=== PATIENT | male | born 1965 | race Caucasian/White ===

== ENCOUNTER 2018-01-25 08:48 | Emergency (ER) | payer MEDICARE ==
[~2018-01-25] VITALS: Ht 172.7 cm; Wt 79.4 kg
[2018-01-25] MEDS ORDERED: PROTONIX20 MG PO (09:17)
[2018-01-25] MEDS ORDERED: DICYCLOMINE HCL10 MG PO (09:19)
[2018-01-25] MEDS ORDERED: ZANAFLEX2 M1 PO (09:20)
[2018-01-25] MEDS ORDERED: DOCUSATE SODIU100 MG PO (09:20)
[2018-01-25] MEDS ORDERED: LISINOPRIL10 MG PO (09:21)
[2018-01-25] MEDS ORDERED: SERTRALINE HCL100 MG PO (09:21)
[2018-01-25] MEDS ORDERED: AMITRIPTYLINE H10 MG PO (09:22)
--- NOTE | 2018-01-25 11:42 | EKG ---
[facility] [address] [facility] [place] [address] Signed Sinus bradycardia Minimal voltage criteria for LVH, may be normal variant Borderline ECG No previous ECGs available Confirmed by GILL LUKE MD ([id number]) on 01/25/2018 11:42:14 AM Electronically Signed By: GILL LUKE MD 01/25/18 1142 PATIENT NAME: VINAY FERNANDEZ Electrocardiogram DATE OF : 63 PHYSICIAN: GILL LUKE MD REPORT #: [id number] REPORT IS CONFIDENTIAL AND NOT TO BE RELEASED WITHOUT AUTHORIZATION
[2018-01-25] MEDS ORDERED: PROMETHAZINE HC25 M1 PO (12:49)
[2018-01-25] MEDS ORDERED: ONDANSETRON ODT8 MG PO (12:49)
== END 2018-01-25 13:00 | disposition home or self-care (01) ==
LOC: ED 08:48
DX: R10.10 Upper abdominal pain, unspecified (principal); R11.2 Nausea with vomiting, unspecified; Z88.0 Allergy status to penicillin; Z88.8 Allergy status to other drugs, medicaments and biological substances; Z79.899 Other long term (current) 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
CPT/HCPCS: 80053; 81001; 83690; 85025; 93005; 93010; 96361; 96372; 96374; 96375; 99284; J1170; J1630; J2405; J2550; J7030

== ENCOUNTER 2018-06-23 16:28 | Observation (INO) | payer MEDICARE, OTHER ==
[~2018-06-23] VITALS: Ht 172.7 cm; Wt 77.6 kg
[~2018-06-23 16:28] MED LIST: AMITRIPTYLINE H10 MG PO; DICYCLOMINE HCL10 MG PO; DOCUSATE SODIU100 MG PO; LISINOPRIL10 MG PO; ONDANSETRON ODT8 MG PO; PROMETHAZINE HC25 M1 PO; PROTONIX20 MG PO; SERTRALINE HCL100 MG PO; TRAMADOL HCL50 MG PO; ZANAFLEX2 M1 PO
--- OUTSIDE RECORDS SUMMARY | 2018-06-23 16:32 | XMS ---
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 EJinny VISIT COUNT (12 MO.) [address] TOTAL 7 NOTE: Visits indicate total known visits. ED/UCC VISIT TRACKING (12 MO.) 06/23/2018 16:28 [facility] TYPE: Emergency COMPLAINT: - VOMITING 06/22/2018 16:32 [facility] TYPE: Emergency COMPLAINT: - ALTERED LOC 01/25/2018 08:50 [facility] TYPE: Emergency COMPLAINT: - ABD PAIN/NAUSEA DIAGNOSES: - Upper abdominal pain, unspecified - Other roasterman (current) 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 - Syncope and collapse - Nausea with vomiting, unspecified - Allergy status to other drugs, medicaments and biological substances status - Allergy status to penicillin 12/11/2017 11:34 [facility] TYPE: Emergency DIAGNOSES: - Vomiting - Dysphagia, unspecified - Epigastric pain - abdominal pain - Elevated white blood cell count, unspecified - Nausea 10/05/2017 14:24 [facility] TYPE: Emergency DIAGNOSES: - Chronic ethmoidal sinusitis - Headache - Fainting 08/02/2017 20:48 [facility] TYPE: Emergency DIAGNOSES: - Abdominal pain - Noninfective gastroenteritis and colitis, unspecified 06/29/2017 09:18 [facility] TYPE: Emergency DIAGNOSES: - N/V - Vomiting, unspecified - Vomiting INPATIENT VISIT TRACKING (12 MO.) No inpatient visits to display in this time frame [email or web address]
--- NOTE | 2018-06-23 20:00 | NUR ---
PT ARRIVED ON FLOOR AT 1940. PT HAD UNCONTROLLED N/V AT THAT TIME. 12.5MG PHENERGAN WAS GIVEN. PT ALSO STATED PAIN 10/10. ALL LOBES ARE CLEAR, ABD SOUNDS ARE PRESENT BUT ABD IS TENDER TO TOUCH. NO PERIPHERAL EDEMA NOTED. WILL CONTINUE TO MONITOR. V/S ARE WDL.
--- NOTE | 2018-06-23 22:00 | NUR ---
PT AT THIS TIME IS SLEEPING. PT AT 2100 WAS WOKEN UP AND DENIED PAIN AND N/V. POTASSIUM IV IS RUNNING. NO NEW CONCERNS AT THIS TIME. BLOOD CULTERS WERE SENT. WAITING ON UA FOR COLLECTION.
--- NOTE | 2018-06-24 | NUR ---
PAIN AT THIS TIME IS 9/10. 1MG OF PRN MORPHINE IS TO BE GIVEN. PT DENIES N/V. WILL CONTINUE TO MONITOR. NO NEW CONCERNS NOTED AT THIS TIME.
--- NOTE | 2018-06-24 01:58 | NUR ---
VITALS AND I&OS DONE AND CHARTED. BEDSIDE TABLE AND CALL LIGHT IN REACH. PT NEEDS NOTHING AT THIS TIME.
--- NOTE | 2018-06-24 02:00 | NUR ---
PT WAS WOKEN UP FOR ASSESSMENT. PAIN IS 7/10, PT DENIES N/V. ABD SOUNDS ARE PRESENT, ABD IS SOFT BUT TENDER TO TOUCH. ALL LOBES ARE CLEAR, NO PERIPHERAL EDEMA NOTED. HIS RIGHT ARM HAS SOME ECCHYMOSIS PRESENT, PT DOES NOT KNOW HOW HE GOT IT. AT THIS TIME I HAVE NO NEW CONCERNS FOR THIS PT. WILL CONTINUE TO MONITOR.
--- NOTE | 2018-06-24 04:05 | NUR ---
PT IS SLEEPING AT THIS TIME.
--- NOTE | 2018-06-24 05:44 | NUR ---
PT OVERALL HAD AN UNEVENTFUL NIGHT. PT STATED THAT HE FEELS MUCH STRONGER OVERALL AND HE ALSO SEEMS TO BE IN GOOD SPIRITS. LOBES ARE CLEAR, PT HAS MODEREATE TO SEVERE GENERALIZED EDEMA PRESENT THOUGH. NEW IV SITE WAS STARTED. ABD SOUNDS ARE PRESENT. PT SO FAR HAD NO BM THIS SHIFT. PT DENIES N/V. PAIN IS CONTROLLED WELL WITH AVAILABLE PRN PAIN MEDS. DRESSING CHANGE ON THE LEFT HEEL HAD TO BE DONE DUE TO LOOSE DRESSING. NO NEW CONCERNS NOTED SO FAR THIS SHIFT. WILL CONTINUE TO MONITOR.
--- NOTE | 2018-06-24 05:49 | NUR ---
PT ARRIVED ON FLOOR AT 1940. PT HR WAS IN THE LOW 100'S. 12.5MG IV PHENERGAN HAD TO BE GIVEN BECAUSE ZOFRAN WAS NOT SUFFICIENT ENOUGH TO REAT HIS N/V. SINCE THEN, V/S HAVE BEEN WDL, URINE OUTPUT IS ADEQUATE, PT HAS DENIED N/V SINCE. PAIN IS CONTROLLED WITH AVAILABLE PRN PAIN MEDICATIONS. ABD SOUNDS ARE PRESENT, ABD IS TENDER TO TOUCH BUT SOFT. NO PERIPHERAL EDEMA NOTED, ALL LOBES ARE CLEAR, PT IS AAO X3. WILL CONTINUE TO MONITOR.
[2018-06-24] MEDS ORDERED: PANTOPRAZOLE SO40 MG PO (07:22)
[2018-06-24] MEDS ORDERED: NITROGLYCERIN0.4 MG SL (07:23)
[2018-06-24] MEDS ORDERED: ATORVASTATIN CA20 MG PO (07:24)
[2018-06-24] MEDS ORDERED: XOPENEX HFA15 GM INH (07:24)
[2018-06-24] MEDS ORDERED: AMITRIPTYLINE100 MG PO (07:25)
--- NOTE | 2018-06-24 07:58 | NUR ---
RECEIVED BEDSIDE REPORT FROM NEGRA COLON. WHITE BOARD UPDATED. PATIENT AWAKENED TO SOUND. LYING IN BED COMFORTABLY. NEW IVF BAG HUNG. LR INFUSING AT 150ML/HR. PT SEEMS WITHDRAWN/DEPRESSED. LIGHTS TURNED ON PER PATIENT REQUEST. NO FURTHER NEEDS AT THIS TIME.
--- NOTE | 2018-06-24 09:18 | NUR ---
PATEINT IN BED, PATEINT STATED HE HAD TALKED TO NURSE ABOUT PAIN MANAGMENT MEDICATION, AND HE WAS FEELING A BIT OF PAIN, VITAL SIGNS DONE INTAKE AND OUTPUT RECORDED, PATIENT IS NPO
--- NOTE | 2018-06-24 10:21 | NUR ---
PT RESTING WITH EYES CLOSED. TYLENOL PROVIDED FOR HEADACHE. ADVANCED TO CLEAR LIQUIDS. WILL GIVE ORANGE JUICE PER REQUEST AND BLACK COFFEE.
--- NOTE | 2018-06-24 13:38 | NUR ---
SPOKE WITH PATIENT ABOUT NEEDING CASE MANAGEMENT POSSIBLY. SAYS HE HAS TAKEN CARE OF WHATEVER HE NEEDS ON HIS OWN. HE IS HAVING PERSONAL ISSUES WITH SPOUSE AT HOME. PROVIDED NEW CUP OF COFFEE REQUESTED. CHRISTINA COLON HANGING NEW BAG OF IVF NOW.
[2018-06-24] MEDS ORDERED: ZENPEP DR 20,01 EACH PO (14:46)
[2018-06-24] MEDS ORDERED: VASCEPA1 GM PO (14:47)
--- NOTE | 2018-06-24 14:48 | NUR ---
MED REC COMPLETE
--- NOTE | 2018-06-24 14:53 | NUR ---
PT AMBULATING HALLS INDEPENDENTLY NOW. TOLERATING WELL. UP IN RECLINER NOW AFTER WALK.
--- NOTE | 2018-06-24 15:54 | NUR ---
PT UP IN RECLINER. IVF DECREASED TO 100ML/HR. RIGHT LITTLE TOE REWRAPPED PER REQUEST. BRUISED PURPLE ON LITTLE TOE OF RIGHT FOOT.
--- NOTE | 2018-06-24 17:53 | NUR ---
INDEPENDENT IN ROOM. LOW FAT DIET. TOLERATING WELL. LR DECREASED TO 100ML/HR. NICOTINE PATCH ON LEFT DELTOID. OXYCODONE AND TYLENOL GIVEN X1 FOR HEADACHE. REGULAR COFFEE DRINKER. PROVIDED THROUGHOUT DAY. DO NOT GIVE INFO OUT TO ANY FRIENDS/FAMILY. AMBULATED IN HALLS TODAY.
--- NOTE | 2018-06-24 18:36 | NUR ---
PATIENT AMBULATED HALLS INDEPENDENTLY. BACK TO BED NOW. WARM BLANKETS PROVIDED. RIGHT PINKY TOE PAINFUL AFTER HITTING IT ON AN OBJECT IN BEDROOM.
--- NOTE | 2018-06-24 19:10 | NUR ---
IN ROOM FOR REPORT, PT IS RESTING WITH EYES CLOSED, RESPIRATIONS ARE EVEN AND NONLABORED. CALL LIGHT IS WITHIN REACH.
--- NOTE | 2018-06-24 20:10 | NUR ---
IN ROOM TO TAKE VS AND I&0'S. PT REPORTS PAIN AT 6/10 IN TOE AND NECK WHICH HE REPORTS IS TOLERABLE BUT WOULD LIKE HIS OXYCODONE. ADVISED PT IT IS DUE JUST BEFORE 2100 AND HE WAS OK WITH THAT, ALSO ADVISED HIM WE WILL REMOVE HIS NICODERM PATCH AT THAT TIME. PT USED THE TOILET AND LET HIM KNOW WE NEED TO MEASURE NEXT TIME, THERE IS A HAT IN THE TOILET NOW. PT IS BACK IN BED AND DENIES FURTHER NEEDS. VS ARE WNL AND PT DENIES NAUSEA.
--- NOTE | 2018-06-24 20:14 | EKG ---
[facility] [address] [facility] [place], [place] [address] Signed Sinus rhythm with marked sinus arrhythmia Otherwise normal ECG When compared with ECG of 22-JUN-2018 16:34, No significant change was found Confirmed by CHAVA DOMINGUEZ DO ([id number]) on 06/24/2018 8:14:06 PM Electronically Signed By: CHAVA DOMINGUEZ DO 06/24/182013 PATIENT NAME: VINAY FERNANDEZ JAILENE Electrocardiogram DATE OF : 63 PHYSICIAN: CHAVA DOMINGUEZ DO REPORT #: [id number] REPORT IS CONFIDENTIAL AND NOT TO BE RELEASED WITHOUT AUTHORIZATION
--- NOTE | 2018-06-24 21:25 | NUR ---
IN ROOM TO ADMINISTER OXYCODONE FOR 8/10 PAIN IN PT'S NECK AND RT PINKY TOE. ALSO REMOVED NICOTINE PATCH. PT DENIES FURTHER NEEDS. CALL LIGHT IS WITHIN REACH.
--- NOTE | 2018-06-24 21:30 | NUR ---
TOOK OVER CARE FOR THIS PT AT THIS TIME. PT DENIES PAIN AND N/V AT THIS TIME. PT STATED THAT HE IS TIRED AND WOULD LIKE TO SLEEP.
--- NOTE | 2018-06-25 | NUR ---
PT IS SLEEPING AT THIS TIME.
--- NOTE | 2018-06-25 02:00 | NUR ---
PT IS SLEEPING AT THIS TIME.
--- NOTE | 2018-06-25 05:04 | NUR ---
PT SLEPT MOST OF THIS SHIFT. PT HAS DENIED ANY N/V AND STATED THAT HE TOLERATED THE LOW FAT DIET WELL. PAIN IS ALSO WELL CONTROLLEED SO FAR. LOBES ARE CLEAR, ABD SOUNDS ARE PRESENT, NO PERIPHERAL EDEMA NOTED. PT IS AAOX4. V/S ARE WDL SO FAR. NO NEW CONCERNS SO FAR THIS SHIFT.
--- NOTE | 2018-06-25 08:04 | NUR ---
PATEINT CURRENTLY EATING BREAKFAST, NEEDED NO OTHER ASSISTANCE AT THE TIME
--- NOTE | 2018-06-25 08:05 | NUR ---
BEDSIDE REPORT RECEIVED. PT A/O IN BED. LAB IN TO DRAW MORNING LABS. PT REPORTS NO PAIN AT THIS TIME, NO N/V. SL. CALL LIGHT IN REACH. DENIES FURTHER NEEDS.
--- NOTE | 2018-06-25 08:14 | NUR ---
TOOK PATEINTS IV OUT, CATHETER IN TACT REPORTED.
== END 2018-06-25 08:35 | disposition home or self-care (01) ==
LOC: ED 16:28 → MS 16:29
PROVIDERS: ADMIT Student in an Organized Health Care Education/Training Program
DX: K85.90 Acute pancreatitis without necrosis or infection, unspecified (principal); K86.1 Other chronic pancreatitis; F17.210 Nicotine dependence, cigarettes, uncomplicated; I10 Essential (primary) hypertension; F39 Unspecified mood [affective] disorder; R52 Pain, unspecified; Z88.0 Allergy status to penicillin; Z88.8 Allergy status to other drugs, medicaments and biological substances; Z79.891 Long term (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 of opiate analgesic; Z79.899 Other long term (current) 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
CPT/HCPCS: 36415; 71046; 80048; 80053; 81001; 83690; 83735; 84484; 85025; 93005; 93010; 96361; 96365; 96366; 96372; 96374; 96375; 96376; 99285; C9113; G0378; G0480; J1650; J1885; J2270; J2405; J2550; J3480; J7030; J7120

== ENCOUNTER 2018-08-24 13:59 | Inpatient (IN) | payer MEDICARE, OTHER ==
[~2018-08-24] VITALS: Ht 172.7 cm; Wt 81.2 kg
[~2018-08-24 13:59] MED LIST changes: +AMITRIPTYLINE100 MG PO; +ATORVASTATIN CA20 MG PO; -DICYCLOMINE HCL10 MG PO; +DICYCLOMINE HCL20 MG PO; +NITROGLYCERIN0.4 MG SL; +PANTOPRAZOLE SO40 MG PO; +TIZANIDINE HCL2 MG PO; +VASCEPA1 GM PO; +XOPENEX HFA15 GM INH; -ZANAFLEX2 M1 PO; +ZENPEP DR 20,01 EACH PO
--- NOTE | 2018-08-24 20:45 | NUR ---
TELEPHONE REPORT RECEIVED FROM LEELA IN ED. AWAITING PT'S ARRIVAL.
--- NOTE | 2018-08-24 21:00 | NUR ---
PT ARRIVED TO THE FLOOR FROM THE ED. PT A/O X3, RATES PAIN 7/10, TOLERABLE AT THIS TIME. VSS. LUNG SOUNDS CLEAR, S1 AND S2 NOTED. PT DENIES NEEDS AT THIS TIME. PT NPO. CALL LIGHT IN REACH.
--- NOTE | 2018-08-24 21:11 | NUR ---
VITALS DONE AND CHARTED. CALL LIGHT IN REACH. SOCKS GIVEN. PT NEEDS NOTHING MORE AT THIS TIME.
--- NOTE | 2018-08-24 23:00 | NUR ---
REPORT GIVEN TO MAYRA COLON. ALL QUESTIONS ANSWERED. IV FLUIDS INFUSING, SITE WNL. CALL LIGHT IN REACH.
--- NOTE | 2018-08-24 23:39 | NUR ---
RECEIVED REPORT FROM DARLENE CASTRO. pt EASY TO ROUSE BUT DROWSY. MEDS GIVEN (SEE MAR). pt RATED PAIN 9/10. PRN PAIN MEDS GIVEN (SEE MAR). CALL LIGHT WITHIN REACH.
--- NOTE | 2018-08-25 00:32 | NUR ---
MEDICATION DUE. GIVEN (SEE MAR). pt RESTING WITH EYES CLOSED, RESPIRATIONS REGULAR, RATE = 16. CALL LIGHT WITHIN REACH.
--- NOTE | 2018-08-25 02:18 | NUR ---
ASSESSMENT DONE. pt REPORTED 7/10 PAIN. PRN MORPHINE GIVEN (SEE MAR). URINATED UPON REQUEST. NOTED SOME TENDERNESS IN ABDOMEN. CALL LIGHT WITHIN REACH. NO FURTHER REQUESTS AT THIS TIME.
--- NOTE | 2018-08-25 02:23 | NUR ---
VITALS AND I&OS DONE AND CHARTED. CALL LIGHT IN REACH. PT NEEDS NOTHING AT THIS TIME.
--- NOTE | 2018-08-25 05:11 | NUR ---
pt ADMITTED FOR APPY TO BE PERFORMED TODAY. SIGNED CONSENT ON CHART. PAIN MEDS X2. LR RUNNING AT 125 MLS/HR. RA. USES CALL LIGHT APPROPRIATELY.
--- NOTE | 2018-08-25 05:32 | NUR ---
pt REQUESTED PAIN MEDICATION. ASSESSMENT DONE. PRN PAIN MED GIVEN, SCHEDULED IV ABX GIVEN (SEE MAR). CALL LIGHT WITHIN REACH. NO FURTHER REQUESTS AT THIS TIME.
--- NOTE | 2018-08-25 06:17 | NUR ---
BUILDINGS AND GROUNDS DIRECTOR HERE TO GET PT FOR SURGERY
--- NOTE | 2018-08-25 06:24 | NUR ---
PT TAKEN TO OR BY FINGERPRINT CLASSIFIER VIA STRETCHER. PT ALERT AND ORIENTED
--- NOTE | 2018-08-25 08:00 | NUR ---
RECEIVED REPORT AT 0700, PT WAS TAKEN TO OR AT AROUND 0600.
--- NOTE | 2018-08-25 08:00 | NUR ---
RECEIVED REPORT AT 0700, FOUND PT IN BED AWAKE. PT HAD NO NEEDS OR COCNERNS AT THAT TIME.
--- NOTE | 2018-08-25 08:47 | NUR ---
PATIENT IN SURGERY. LINENS CHANGED. NO OTHER NEEDS AT THIS TIME
--- NOTE | 2018-08-25 09:23 | NUR ---
08/25/18 0923 Varsha Lovell 0858- PT ARRIVES TO PACU REACTIVE TO VOICE. PT REPORTS NO PAIN OR NAUSEA AT THIS TIME. FALLS INSTANTLY BACK TO SLEEP. PT ON 6L VIA MASK. OXYGEN SAT 100% ON THIS. RESP EVEN AND UNLABORED. 0908- OXYGEN TURNED OFF. OXYGEN SAT HIGH 90'S ON RA. RESP EVEN AND UNLABORED. PT IS NEEDING REMINDERS THAT HE IS IN THE RECOVERY ROOM AND SURGERY IS OVER. 0922- PT RESTING IN BED. NEEDING REMINDERS TO TAKE DEEP BREATHS. OXYGEN SAT 91% ON RA BEFORE TAKING DEEP BREATHS. OXYGEN SAT INCREASED TO MID 90'S AFTER TAKING DEEP BREATHS.
--- NOTE | 2018-08-25 10:00 | NUR ---
PT ARRIVED ON THE FLOOR AT 0950. PT IS AAO X4, PAIN 8/10, LAP SITES X3 WITH STERI SPRIPS PRESENT. ABD SOUNDS ARE PRESNT. PT IS DRINKING SOME COFFE AND EATING SALTINE CRACKERS. PT DENIES N/V. ALL LOBES ARE CLEAR, NO OTHER PROBLEMS NOTED AT THIS TIME.
--- NOTE | 2018-08-25 10:13 | NUR ---
PATIENT IN OR. SPOKE WITH NURSING. THEY STATE PATIENT IS INDEPENDENT AT HOME, THEY DO NOT SEE CASE MANAGEMENT NEED AT THIS TIME. WILL PUT IN CONSULT IF ANY NEED ARISES. DEFER ASSESSMENT AT THIS TIME.
--- NOTE | 2018-08-25 12:00 | NUR ---
PT IS ABLE TO TOLERATE FULL LIQUIDS AND SALTINE CRACKERS SO FAR. PT HAS VOIDED WELL V/S ARE WDL.
--- NOTE | 2018-08-25 12:48 | NUR ---
PT PREPPED AND WAITING FOR SURGERY. PLEASANT, SLOW SPEECH, BUT ON POINT AND REQUESTED PRAYER. WILL FOLLOW NEEDED
--- NOTE | 2018-08-25 14:00 | NUR ---
PT IS DOING VERY WELL. PT AMBULATED IN HALLWAY X2, PT IS TOLERATING REGULAR DIET, PT IS POSITIVE FOR BOWEL TONES, PT ALSO IS POSITIVE FOR FLATUS. PAIN SEEMS CONTROLLED. PT IS SALINE LOCKED. NO NEW CONCERNS AT THIS TIME.
[2018-08-25] MEDS ORDERED: OXYCODON-ACETA1 EAC2 PO (15:54)
[2018-08-25] MEDS ORDERED: MAPAP325 MG PO (15:54)
--- NOTE | 2018-08-25 16:17 | HP ---
[facility] [address] [place], [place] [address] Signed ADMISSION DATE: 08/24/2018 REASON FOR ADMISSION: Acute appendicitis. HISTORY OF PRESENT ILLNESS: This 53-year-old white man, presented to the emergency room about 5 hours ago. He was known in the past in June to have acute on chronic pancreatitis, but has been abstinent of alcohol. He began with upper abdominal pain, but was found to have no evidence of hyperamylasemia or hyperlipasemia. He was noted to have a markedly elevated white count of 23.8 with a normal hematocrit of 48.1 and platelet count 279,000 with a Chem profile that was essentially normal. The glucose was elevated at 129. Liver enzymes are normal. Lipase 15. On the basis of his enigmatic upper abdominal pain, but with prior history of pancreatitis, a CT scan of the abdomen and pelvis was performed. This ultimately showed acute appendicitis. Appendix was considered thick walled and dilated and contained a 15 mm fecalith. His clinical examination over observation within the emergency room showed progression of his pain from upper abdomen actually to the right lower quadrant as is typical of acute appendicitis. The patient last ate yesterday. He had no nausea or vomiting particularly. SOCIAL HISTORY: He is . He lives in [place]. 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 His is suffering from lung cancer it appears. REVIEW OF SYSTEMS: He denies any shortness of breath or chest pain. He has had no dysphagia or dysuria. Denies any hematemesis or blood per rectum. PHYSICAL EXAMINATION: GENERAL: Pleasant white man, who does not look systemically toxic. HEENT: Mucous membranes reasonably moist. Trachea is midline. CHEST: Clear. HEART: Regular without murmur. ABDOMEN: Nondistended. There are incisions from prior laparoscopic Bob fundoplication and cholecystectomy. Palpation reveals tenderness at McBurney point. Rovsing sign is equivocal. EXTREMITIES: Show no clubbing, cyanosis, or edema. Electronically Signed By: LD NGUYEN MD 08/25/18 1617 PATIENT NAME: VINAY FERNANDEZ HISTORY AND PHYSICAL DATE OF : 63 REPORT #: [id number] PHYSICIAN: LD NGUYEN MD PCP: KAMARI RAHMAN MD REPORT IS CONFIDENTIAL AND NOT TO BE RELEASED WITHOUT AUTHORIZATION [facility] [address] [place] [id number] Signed LABORATORY DATA: Lab studies are as previously noted most dominantly with elevated white count. His urinalysis is normal as well. ASSESSMENT: The patient has acute appendicitis. I have reviewed the CT scan in detail. It appeared there maybe some material within the stomach. Actually, he has not eaten in quite some time and has not been fed in the ER of course. He is initiated on fluid resuscitation already and is admitted at this time to undergo appendectomy, preferably by laparoscopic approach. Risks of bleeding, infection, need for open procedure and other unforeseen complications were reviewed in detail. He understands this and he wished to proceed. MD VIKTOR Wolff/[facility] /[id number] cc: MD Igor Yadav MD Copies: IGOR HOLLAND MD ~ Electronically Signed By: LD NGUYEN MD 08/25/18 1617 PATIENT NAME: VINAY FERNANDEZ HISTORY AND PHYSICAL DATE OF : 63 REPORT #: [id number] PHYSICIAN: LD NGUYEN MD PCP: KAMARI RAHMAN MD REPORT IS CONFIDENTIAL AND NOT TO BE RELEASED WITHOUT AUTHORIZATION
--- NOTE | 2018-08-25 16:17 | OR ---
[facility] [address] [place], [place] [address] Signed DATE OF OPERATION: 08/25/2018 SURGEON: Ld Nguyen MD PREOPERATIVE DIAGNOSIS: Acute appendicitis. POSTOPERATIVE DIAGNOSIS: Acute appendicitis. PROCEDURE: Laparoscopic appendectomy. ANESTHESIA: General endotracheal, Mercedes Nabeel, OVEN BAKER and local 20 mL of 0.25% Marcaine with epinephrine. INDICATION: This 53-year-old white man presented to the emergency room late yesterday with complaints of upper abdominal pain. He had no right lower quadrant pain upon presentation. He is known in the past to have had acute on chronic pancreatitis. The lab studies showed no evidence of hyperamylasemia. His white count was markedly elevated at 23.8 with normal hematocrit and glucose, and liver enzymes normal. He has undergone laparoscopic Bob fundoplication and laparoscopic cholecystectomy in the past. On the basis of his elevated white count and enigmatic upper abdominal pain, a CT scan was performed under the direction of Dr. Holland. This actually showed a markedly inflamed appendix. By that point, he was beginning to have right lower abdominal pain and tenderness as well. He has been fluid resuscitated given intravenous antibiotics, and at this time to undergo appendectomy preferred by laparoscopic approach. The risks of bleeding, infection, need for open procedure and other unforeseen complications were related to him. He understands and wished to proceed. FINDINGS: Indeed, the appendix was dilated and markedly inflamed. There was no sign of perforation or abscess. The liver had fatty infiltration. The terminal ileum was normal. Appendectomy was performed without problem. DESCRIPTION OF PROCEDURE: Electronically Signed By: LD NGUYEN MD 08/25/18 1617 PATIENT NAME: VINAY FERNANDEZ OPERATIVE REPORT DATE OF : 63 REPORT #: [id number] PHYSICIAN: LD NGUYEN MD PCP: KAMARI RAHMAN MD REPORT IS CONFIDENTIAL AND NOT TO BE RELEASED WITHOUT AUTHORIZATION [facility] [address] [place], [place] [address] Signed The patient was brought to the operating room, given a general endotracheal anesthetic. An additional dose of cefoxitin 2 g was given immediately preoperatively. Heparin had been subcutaneously administered and SCDs were in place. He was given a general endotracheal anesthetic without complication. The abdomen was clipped and prepared with a chlorhexidine solution and draped sterilely. An infraumbilical incision was made and using an open Rashaad cannula technique, the abdomen entered and pneumoperitoneum achieved to the level of 14 mmHg of carbon dioxide gas. Intraabdominal inspection showed no sign of ascites or carcinomatosis. The liver edge was blunted. The appendix was well visualized and markedly inflamed and injected and dilated. There was no sign of abscess or purulence. An epigastric 12 mm port was placed and a camera was placed to that site. The right lower abdominal 5 mm port was placed under direct visualization and two-hand manipulation allowed for straight forward elevation of the cecum. The appendix was grasped and elevated and a window created between the mesoappendix and the cecum. This was with minimal amount of electrocautery and blunt dissection. Using an Endo-SHUKRI stapling device, the base of the appendix was transected and flushed with the cecum. This allowed for good mobility of the mesoappendix. A single load of the Endo-SHUKRI stapling device was used to secure that. The appendix was placed in an endobag and extracted through the infraumbilical port site without problem, opened on the back table and found to have marked inflammatory change, but no sign of perforation. Irrigation was undertaken at the staple lines. Only minimal cautery was required there. Further irrigation was undertaken and excess irrigation fluid was suctioned free. The terminal ileum was examined and found to be normal. After an irrigation fluid was suctioned free, the trocars were removed under direct visualization. The infraumbilical fascial incision was reapproximated with interrupted 0 Vicryl suture. All wounds were copiously irrigated with saline solution and a 20 mL of 0.25% Marcaine with epinephrine was injected locally. The skin was closed with interrupted 3-0 Vicryl. Steri-Strips were applied. The patient was ultimately extubated and transferred to recovery room in good condition having suffered no complications. Sponge, needle, and counts reported as correct x3. Ld Nguyen MD /[facility] /[id number] Electronically Signed By: LD NGUYEN MD 08/25/18 1617 PATIENT NAME: VINAY FERNANDEZ OPERATIVE REPORT DATE OF : 63 REPORT #: [id number] PHYSICIAN: LD NGUYEN MD PCP: KAMARI RAHMAN MD REPORT IS CONFIDENTIAL AND NOT TO BE RELEASED WITHOUT AUTHORIZATION [address] [address] Signed cc: MD Igor Yadav MD Copies: IGOR HOLLAND MD ~ Electronically Signed By: LD NGUYEN MD 08/25/18 1617 PATIENT NAME: VINAY FERNANDEZ OPERATIVE REPORT DATE OF : 63 REPORT #: [id number] PHYSICIAN: LD NGUYEN MD PCP: KAMARI RAHMAN MD REPORT IS CONFIDENTIAL AND NOT TO BE RELEASED WITHOUT AUTHORIZATION
--- NOTE | 2018-08-25 17:23 | NUR ---
PATIENT SITING UP IN CHAIR. VITAL SIGNS DONE BEFORE PATIENT WAS DISCHARGE FROM THE UNIT.
--- NOTE | 2018-08-25 22:04 | EKG ---
[facility] [address] [facility] [place], [place] [address] Signed Normal sinus rhythm Normal ECG When compared with ECG of 23-JUN-2018 16:36, No significant change was found Confirmed by CHAVA DOMINGUEZ DO ([id number]) on 08/25/2018 10:04:10 PM Electronically Signed By: CHAVA DOMINGUEZ DO 08/25/18 2204 PATIENT NAME: VINAY FERNANDEZ Electrocardiogram DATE OF : 63 PHYSICIAN: CHAVA DOMINGUEZ DO REPORT #: [id number] REPORT IS CONFIDENTIAL AND NOT TO BE RELEASED WITHOUT AUTHORIZATION
== END 2018-08-25 17:25 | disposition home or self-care (01) | DRG 342 ==
LOC: ED 13:59 → MS 19:38
PROVIDERS: ADMIT Surgery
PROC: 0DTJ4ZZ Resection of Appendix, Percutaneous Endoscopic Approach (ICD-10-PCS; principal; 2018-08-25 07:15)
DX: K35.80 Unspecified acute appendicitis (principal); K86.1 Other chronic pancreatitis; K38.1 Appendicular concretions; K76.0 Fatty (change of) liver, not elsewhere classified; G89.29 Other chronic pain; M54.2 Cervicalgia; F17.290 Nicotine dependence, other tobacco product, uncomplicated; Z88.0 Allergy status to penicillin; Z88.8 Allergy status to other drugs, medicaments and biological substances; Z79.891 Long term (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 of opiate analgesic; Z79.899 Other long term (current) 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
CPT/HCPCS: 00840; 74177; 80053; 81001; 83690; 85025; 93005; 93010; 96361; 96374; 96375; 99285-25; J0131; J0330; J0694; J1170; J1644; J2250; J2270; J2405; J2550; J2704; J3010; J7030; J7120; Q9967

== ENCOUNTER 2018-08-26 08:46 | Inpatient (IN) | payer MEDICARE, OTHER ==
[~2018-08-26] VITALS: Ht 172.7 cm; Wt 80.5 kg
[~2018-08-26 08:46] MED LIST changes: +MAPAP325 MG PO; +OXYCODON-ACETA1 EAC2 PO
--- OUTSIDE RECORDS SUMMARY | 2018-08-26 08:50 | XMS ---
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 Care History Medical/Surgical 06/26/2018 [facility] - Patient is currently established with [facility]. If patient is seen in the ED during business hours. Please contact CHWs at [facility]. Care Recommendation: This patient has had 5 or more Emergency Department visits in the last 12 months.\T\nbsp; Patient requires education on the scope and purpose of the ED as an acute care provider not a Primary Care Provider and should not be utilized for chronic conditions.\T\nbsp; These are guidelines and the provider should exercise clinical judgment when providing care. [facility] T[facility] NOTE: Visits indicate total known visits. ED/UCC VISIT TRACKING (12 MO.) 08/26/2018 08:46 [facility] [place] TYPE: Emergency COMPLAINT: - POST OP PROBLEM/ABD PAIN 08/24/2018 14:00 [facility] [place] TYPE: Emergency COMPLAINT: - NAUSEA,VOMITING 06/23/2018 16:28 [facility] TYPE: Emergency COMPLAINT: - VOMITING 06/22/2018 16:32 [facility] TYPE: Emergency COMPLAINT: - ALTERED LOC DIAGNOSES: - Other longterm (current) 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 - Allergy status to penicillin - Right lower quadrant pain - Allergy status to other drugs, medicaments and biological substances status - Pain in right toe(s) 01/25/2018 08:50 [facility] TYPE: Emergency COMPLAINT: - ABD PAIN/NAUSEA DIAGNOSES: - Upper abdominal pain, unspecified - Other longterm (current) 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 - Syncope and collapse - Nausea with vomiting, unspecified - Allergy status to other drugs, medicaments and biological substances status - Allergy status to penicillin 12/11/2017 11:34 [facility] TYPE: Emergency DIAGNOSES: - Vomiting - Dysphagia, unspecified - Epigastric pain - abdominal pain - Elevated white blood cell count, unspecified - Nausea 10/05/2017 14:24 [facility] TYPE: Emergency DIAGNOSES: - Chronic ethmoidal sinusitis - Headache - Fainting INPATIENT VISIT TRACKING (12 MO.) 08/24/2018 19:38 [facility] TYPE: Medical Surgical COMPLAINT: - APPY 06/23/2018 16:29 [facility] TYPE: Medical Surgical COMPLAINT: - PANCREATITIS DIAGNOSES: - Unspecified mood [affective] disorder - Unspecified abdominal pain - Pain, unspecified - 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
--- NOTE | 2018-08-26 12:06 | NUR ---
PT ARRIVED AT 1109, BP 185/107, MD NGUYEN TO BE CALLED. ABD SOUNDS ARE PRESENT, PT HAS NAUSEA BUT NO VOMITING AT THIS TIME. ABD SOUNDS ARE PRESENT, ABD IS DISTENDED MODERATLY BUT IS SOFT TO TOUCH. LAP SITES X3 ARE CRUSTY AND DRY. ALL LOBES ARE CLEAR, PAIN IS 8/10. PT IS RESTING AT THIS TIME.
--- NOTE | 2018-08-26 14:33 | NUR ---
PATIENT IN BED RESTING WITH EYES CLOSED. RN DID V\S. CALL LIGHT IN REACH. NO FURTHER NEEDS AT THIS TIME.
--- NOTE | 2018-08-26 15:00 | NUR ---
PT AT THIS TIME IS DROWSY AND STATES THAT HE IS IN PAIN BUT IS NOT ABLE TO TELL ME HOW BAD HIS PAIN IS. CORRECTIONS CADET WAS STARTED. V/S ARE OVERALL WDL WITH ELEVATED SBP AT 157. ABD SOUNDS ARE PRESENT, ABD IS DESTENDED MOTERATLY, BUT SOFT TO TOUCH. WILL CONTINUE TO MONITOR.
--- NOTE | 2018-08-26 16:11 | NUR ---
NG TUBE INSETED AT 1605 PER MD NGUYEN. PT TOLERATED WELL. WAITING FOR X-RAY CONFIRMATION. LOW INTERMITTEN SUCTION.
--- NOTE | 2018-08-26 17:21 | NUR ---
PT ARRIVED ON FLOOR AT 1109. PT WAS DRY-HIEAVING UPON ARRIVAL, PAIN WAS 8/10. AFTER 0.5MG IV DILAUDED PAIN AND HEAVING SETTLED. PT A LITTLE LATER WAS DROWSEY ON PUT ON CLASSIFICATION OFFICER. ABD IS MODERATLY DISTENDED, BOWEL TONES ARE ACTIVE, PT PASSES FLATUS. ALL LOBES ARE CLEAR. MD NGUYEN WAS NOT AWARE THAT KUB X-RAY SHOWED AIR IN STOMACH. THEREFORE AT 1609 A NG TUBE WAS INSERTED AND PUT TO LOW INTERMITTEN SUCTION. PO MEDS SO FAR HAVE BEEN GIVEN CRUSHED WITH CONFIRMATION OF PHARMACY. SUCTION WILL BE RE-STARTED AT 1740. PT STATED THAT HIS PAIN IS MUCH LESS AND THE PRESSURE IN HIS STOMACH HAS LESSEND WELL. NG OUTPUT IS BLOOD. WILL MD NGUYEN IS AWARE. WILL CONTINUE TO MONITOR AND MAYBE CALL MD NGUYEN AGAIN IS NEEDED.
--- NOTE | 2018-08-26 18:30 | NUR ---
DR. NGUYEN CALLED FOR ORDER FOR IV FLUIDS, TELEPHONE ORDER FOR D5LR AT 85 ML/HR. NOTIFIED DR. NGUYEN OF 100 ML OF BLOOD DRAINED FROM NG TUBE, DR NGUYEN REQUESTED READOFF OFF CHEST XRAY IMPRESSION, ORDER TO ADVANCE NG TUBE PER RADIOLOGY RECOMMENDATION.
--- NOTE | 2018-08-26 20:40 | NUR ---
PATIENT RESTING QUIETLY AT THIS TIME IN HIGH FOWLERS POSITION AND ON CONTINUOUS PULS OX IN THE HIGH 90'S FOR SAT AND HR IN THE 80'S. NG TUBE TO LIS WITH RED RAINAGE.
--- NOTE | 2018-08-26 21:57 | HP ---
[facility] [address], [place] [address] Signed ADMISSION DATE: 08/26/2018 REASON FOR ADMISSION: Abdominal distension following appendectomy. HISTORY OF PRESENT ILLNESS: This 53-year-old white man was admitted two nights ago with appendicitis as proven on CT scan. He was fluid resuscitated and underwent laparoscopic appendectomy without problem yesterday morning. The operation went very well and very simply and he tolerated it well. He is given a regular diet postop, which he tolerated well and strongly wished to be discharged home to be with his , who is suffering from lung cancer. He awakened this morning with some nausea and vomiting and mild abdominal pain. He presented to the emergency room where he was evaluated by Dr. Zazueta, whose evaluation included an abdominal x-ray showing a markedly distended stomach. There was no sign of small-bowel obstruction and he had no evidence of tenderness or mass at the umbilicus or elsewhere. His lab studies were essentially normal with white count of only 11.4. He is admitted for further evaluation and care with early postoperative gastric distension. REVIEW OF SYSTEMS: He denies any dysphagia, hematemesis, or blood per rectum. He is not having severe abdominal pain particularly, but is distended and has had vomiting several times while on the regular nursing floor. PHYSICAL EXAMINATION: GENERAL: Pleasant white man who does not look systemically toxic. Trachea is midline. CHEST: Clear. HEART: Regular without murmur. ABDOMEN: Somewhat distended, not focally tender. Close inspection of the umbilicus shows a small amount of ecchymosis, but not much. No mass or anything to suggest incarcerated hernia. STUDIES: The abdominal x-ray is reviewed showing a distended stomach. ASSESSMENT: It is uncertain the source of his problem. Whether or not this may represent a postoperative ileus is uncertain. He is admitted for fluid resuscitation and further observation and given the findings on his KUB with gastric distension of air, I would recommend placement of an NG tube at this time. Discussed this with him in detail. He understood. Electronically Signed By: LD NGUYEN MD 08/26/18 2157 PATIENT NAME: VINAY FERNANDEZ HISTORY AND PHYSICAL DATE OF : 63 REPORT #: [id number] PHYSICIAN: LD NGUYEN MD PCP: KAMARI RAHMAN MD REPORT IS CONFIDENTIAL AND NOT TO BE RELEASED WITHOUT AUTHORIZATION [facility] [address], [place] [address] Signed We will continue to monitor him. I see no sign of wound problem or anything to suggest herniation at the umbilicus or elsewhere. We will be mindful of uncommon but real complications following appendectomy by laparoscopic approach. It is most appropriate that he will be monitored in the hospital given his current findings and uncertainty as to diagnosis. MD VIKTOR Wolff/MARISOL /[id number] Copies: ~ Electronically Signed By: LD NGUYEN MD 08/26/18 2157 PATIENT NAME: VINAY FERNANDEZ HISTORY AND PHYSICAL DATE OF : 63 REPORT #: [id number] PHYSICIAN: LD NGUYEN MD PCP: KAMARI RAHMAN MD REPORT IS CONFIDENTIAL AND NOT TO BE RELEASED WITHOUT AUTHORIZATION
--- NOTE | 2018-08-26 23:00 | NUR ---
PATIENT HAVING 9/10 THROAT AND ABD PAIN. 0.5MG IV DILAUDID AND 12.5MG IV PENERGAN IN 20MLS NS AND 30MG IV KETORALAC IV GIVEN FOR PAIN AND NAUSEA. PO MEDS CRUSHED AND PLACED DOWN THE NG TUBE TO BE CLAMPED FOR 30 MINUTES.
--- NOTE | 2018-08-27 00:05 | NUR ---
V/S AND I&O DONE AND CHARTED.
--- NOTE | 2018-08-27 01:10 | NUR ---
PATIENT RESTING QUIETLY, VS STABLE ON THE PULSE OX, EYES CLOSED. HIGH FOWLERS POSITION. NO S/S OF DISTRESS. CALL LIGHT IN REACH.
--- NOTE | 2018-08-27 03:15 | NUR ---
PATIENT CONTINUES TO REST QUIETLY IN HIGH FOWLERS POSITION WITH EYES CLOSED. PATIENT HAS NO S/S OF DISTRESS. CALL LIGHT IN REACH.
--- NOTE | 2018-08-27 05:20 | NUR ---
THE 3 LAP SITES ON THE ABD REMAIN UNCHANGED WITH DRIED CRUSTED STERI STRIPS ON THEM. PATIENT CONTINUES TO REST QUIETLY AND i HAVE BEEN ABLE TO GET IN AND OUT OF THE ROOM WITH OUT THE PATIENT WAKING UP. VS STILL STABLE ON PULSE OX. PATIENT HAS HAD NO MORE MEDICATIONS GIVEN.
--- NOTE | 2018-08-27 07:30 | NUR ---
REPORT RECEIVED FROM DARLENE RICHARDSON. PT REPORTS 03/31 PAIN. PHARAMACY CALLED FOR IV TYLENOL. NG TUBE TO LOW INTERMITTANT SUCTION. NO ADDITIONAL REQUESTS OR COMPLAINTS AT THIS TIME. CALL LIGHT WITHIN REACH.
--- NOTE | 2018-08-27 07:46 | NUR ---
PT CONTINUES TO REPORT PAIN OF 8/10 IN THROAT AND ABDOMEN. SEE MAR FOR MEDICATION GIVEN. PT RESTING WITH EYES CLOSED, RESPIRATIONS REGULAR RATE AND RHYTHEM. BED RAILS UP. CALL LIGHT WITHIN REACH.
--- NOTE | 2018-08-27 09:01 | NUR ---
MORNING ASSESSMENT AND MEDICATIONS DUE. THIS RN TO BEDSIDE. PT DENIES NAUSEA AND REPORTS 5/10 "BETTER" PAIN. ASSESSMENT DONE. ACTIVE BOWEL TONES HEARD, PT PASSING GAS. NG TUBE CLAMPED FOR MEDICATION ADMINISTRATION. PT TALKING TO ON PHONE. NO ADDITIONAL REQUESTS OR COMPLAINTS AT THIS TIME. CALL LIGHT WITHIN REACH.
--- NOTE | 2018-08-27 10:36 | NUR ---
THIS RN RETURNED CALLED TO PTS TO UPDATE HER ON PT CONDITION. PT EMOTIONALLY DISTRESSED STATING SHE HAS NO SUPPORT IN [place] AND CANNOT AFFORD A TAXI. CHARGE NURSE CONSULTED. PT STATES HER QUESTIONS HAVE BEEN ANSWERED AT THIS TIME. WILL CALL AGAIN AFTER MD ROUNDS.
--- NOTE | 2018-08-27 11:02 | NUR ---
THIS RN TO ROOM TO CHECK ON PT. PT CONTINUES TO REPORT THROAT PAIN "FROM THE TUBE." ICE CHIPS PROVIDED. WAITING FOR MD TO ASK FOR CHLOASEPTIC SPRAY. PT UP TO URINATE, VOIDS 500ML WITHOUT ISSUE. NG TUBE RETURNED TO LOW INTERMITTANT SUCTION. PT DENIES ADDITIONAL REQUESTS OR COMPLAINTS AT THIS TIME. CALL LIGHT WITHIN REACH.
--- NOTE | 2018-08-27 12:49 | NUR ---
MD CALLED TO VERIFY DIET ORDER. MD STATES TO PLACE PT ON CLEAR LIQUIDS AND ADVANCE TOLERATED. NEW ORDERS PLACED. CLEAR LIQUID TRAY ORDER FOR PT.
--- NOTE | 2018-08-27 13:00 | NUR ---
NOON ASSESSMENT DUE. THIS RN TO BEDSIDE. PT REPORTS 2/10 PAIN IN ABDOMEN AND 6/10 PAIN IN THROAT THAT "IS GETTING BETTER." PT DENIES NEED FOR PAIN MEDICAITON. PT DENIES NAUSEA. DIET ADVANCED TO CLEARS. CLEAR LIQUID TRAY ARRIVED. LAPROSCOPIC SITES LINWOOD WITH EDGES APROXIMATED, TOP (CEPHALIC) SITE HAS TWO BLISTERS UNDER EACH STERI STRIP ON RIGHT SITE. WILL CONTINUE TO MONITOR. PT WATCHING TV WITH , TRYING CLEAR LIQUIDS. NO ADDITIONAL REQUESTS OR COMPLAINTS AT THIS TIME. CALL LIGHT WITHIN REACH.
--- NOTE | 2018-08-27 15:21 | NUR ---
THIS RN TO ROOM TO CHECK ON PT. PT DENIES PAIN AND NAUSEA AND STATES HE IS READY FOR "MORE FOOD." PT UPGRADED TO FULL LIQUID DEIT AND ENCORUAGED TO TAKE IT SLOWLY. ICE CREAM AND COFFE PROVIDED PER PT REQUEST. NO ADDITIONAL REQUESTS OR COMPLAINTS AT THIS TIME. CALL LIGHT WITHIN REACH. BED ALARM ON.
--- NOTE | 2018-08-27 16:16 | NUR ---
AFTERNOON ASSESSMENT DUE. THIS RN TO BEDSIDE. PT REPRORTS 4/10 PAIN "ALL OVER" BUT STATES HE DOES NOT NEED MEDICATION AT THIS TIME. PT ENCORUAGED TO GET UP AND MOVE AROUND. PT WALKS AROUND ROOM AND AGREES TO SIT IN CHAIR. ASSESSMENT DONE. BLISTERS ON CEPHALIC (TOP) LAPROSCOPIC SITE NOTED AND ARE NOW ON BOTH SIDES OF STERI STRIPS, NO ALTERATIONS OR BLISTERS NOTED ON OTHER LAPROSCOPIC SITES. 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 PT REQUESTS "MORE FOOD." PT DENIES NAUSEA. PT ADVANCED TO SOFT DIET AND ASSISTED WITH ORDERING A SMALL DINNER (MASHED POTATOES AND PUDDING). PT ON PHONE TALKING WITH . MEDICATIONS GIVEN. NO ADDITIONAL REQUESTS OR COMPLAINTS AT THIS TIME. CALL LIGHT WITHIN REACH.
--- NOTE | 2018-08-27 18:18 | NUR ---
THIS RN TO ROOM TO CHECK ON PT. PT FINISHED WITH DINNER, DENIES NAUSEA. PT REPORTS 0/10 PAIN STATING "I FEEL PRETTY GOOD." MD NOTIFED OF BLISTERED AREAS AROUND STERI STRIPS. ORDERS TO REMOVE STERI STRIPS APPLY BACITRACIN AND BANDAID GIVEN. ORDERS CARRIED OUT. NEW FLUIDS HUNG. PT WATCHING TV. NO ADDITIONAL REQUESTS OR COMPLAINTS AT THIS TIME. CALL LIGHT WITHIN REACH.
--- NOTE | 2018-08-27 18:41 | NUR ---
PT HERE FOR ABDOMINAL DISTENTION POST LAP APPY. STERI STRIPS REMOVED FROM TOP INCISION AND BANDAID/BACITRACIN APPLIED R/T BLISTER FORMATION. NG TUBE DC'D TODAY, PT TOLERATING SOFT DIET, ADVANCE FUTHER TOLERATED. NO NAUSEA THIS SHIFT. PRN PAIN MEDICATIONS GIVEN THIS AM, NO FURTHER NEED THIS PM. TO BEDSIDE TODAY WITH TAXI TICKET. VOIDING QUANTITY SUFFICIENT. PT USES CALL LIGHT APPROPRIATLY.
--- NOTE | 2018-08-27 20:18 | NUR ---
UP IN CHAIR, WATCHING TV. ON ROOM AIR, NO C/O PAIN, NO SOB. ABD LAP SITES INTACT. OPEN TO AIR. IVF INFUSING. COOP WITH ASSESSMENT.
--- NOTE | 2018-08-28 01:13 | NUR ---
RESTING, EYES CLOSED, NO C/O PAIN.
--- NOTE | 2018-08-28 04:34 | NUR ---
awakes easily, abd soft, veena, states passing gas, lap sites covered with ss and bandaids, area below umbilicus area pinkish colored, non tender
--- NOTE | 2018-08-28 06:06 | NUR ---
Slept this shift, no c/o abd pain, no n/v. obd softer, lap sites intact. pinkish area still present w/o changes, no drainage. States passing gas, no bm. Tolerating fluids well, on Regular diet this am.
--- NOTE | 2018-08-28 07:10 | NUR ---
RECIEVED BEDSIDE REPORT FROM DARLENE CUELLO. PT AWAKE, SITTING UP IN BED. DENIED NEEDS.
--- NOTE | 2018-08-28 07:19 | NUR ---
Dr Luevano notified of pt IVF stopped at 0620 and changed to . order to ok to IV site obtained
--- NOTE | 2018-08-28 08:26 | NUR ---
PT ATE 90% OF BREAKFAST, TOLERATED WELL. BOWEL TONES ACTIVE X 4 QUADRANTS. BANDAID OVER UPPER ABD SCOPE SITES WNL, LOWER SCOPE SITE HAS OLD BLOODY DRAINAGE, SMALL AMOUNT, PRESENT ON STERI STRIPS. DENIES PAIN, DENIES NAUSEA.
--- NOTE | 2018-08-28 18:51 | DS ---
[facility] [address], [place] [address] Signed ADMISSION DATE: 08/26/2018 DISCHARGE DATE: 08/28/2018 REASON FOR ADMISSION: This 53-year-old white man was admitted 2 nights prior to current admission with appendicitis is proven on CT scan, underwent laparoscopic appendectomy without problem. The day prior to current admission. The operation went very well and very simply. He was noted to have acute appendicitis without perforation or abscess. He was discharged home same day as he was feeling quite well, tolerating regular diet, so forth. He began having abdominal distention, some nausea and vomiting, and mild abdominal pain, presents to the emergency room where he was evaluated by Dr. Zazueta. His evaluation included abdominal x-ray showing a markedly distended stomach with air. There was no sign of small-bowel obstruction. His white count is 11.4. He is admitted for further evaluation and care. PERTINENT PHYSICAL EXAMINATION: GENERAL: Showed a pleasant white man who did not look systemically toxic. Trachea is midline. CHEST: Clear. HEART: Regular without murmur abdomen is somewhat distended, but not focally tender. Examination of his plain abdominal x-ray shows a stomach markedly distended with air. HOSPITAL COURSE: He was fluid resuscitated and nasogastric tube was placed, which allowed for decompression of his stomach. He had relatively prompt improvement over time. Nasogastric tube was removed and he was begun on a liquid diet, advance to ultimately regular diet, which he tolerated well. By the time of discharge, he is feeling completely well. There is no sign of abnormality with any of his incisions. The umbilical incision in particular is healing fine. There is a small amount of ecchymosis. It is uncertain why he had his abdominal complaints requiring readmission to the hospital, but I suspect it may have been related to anesthesia itself fluids or other finding. DISCHARGE PLAN: He will return to see me as previously noted in about 4 weeks. He will maintain a regular diet. He is to lift no more than 20 pounds for the next 2 weeks as before. He is to shower daily and to walk. DISCHARGE MEDICATIONS: Electronically Signed By: LD NGUYEN MD 08/28/18 1851 PATIENT NAME: VINAY FERNANDEZ DISCHARGE SUMMARY DATE OF : 63 REPORT #: [id number] PHYSICIAN: LD NGUYEN MD PCP: KAMARI RAHMAN MD REPORT IS CONFIDENTIAL AND NOT TO BE RELEASED WITHOUT AUTHORIZATION [facility] [address], [place] [address] Signed He will resume his usual medication prior to current admission which included, 1. Tylenol 650 p.o. q.6 hours p.r.n. pain. 2. Amitriptyline 100 mg p.o. at bedtime. 3. Atorvastatin 20 mg p.o. daily. 4. Dicyclomine 20 mg p.o. q.i.d. as needed. 5. Vascepa 1 g capsule, 2 g p.o. b.i.d. with meals. 6. Xopenex inhaler 2 puffs q.4 to 6 hours as needed for shortness of breath. 7. Lipase, protease, amylase pancreatic enzyme 2 caps five times daily as needed and lisinopril 10 mg p.o. daily and nitroglycerin 0.4 mg sublingual as needed for chest pain. 8. Additionally, he will have available oxycodone/Tylenol 7.5/325 two tabs p.o. q.4 hours p.r.n. pain. 9. Pantoprazole 40 mg p.o. daily. 10. Sertraline 100 mg p.o. daily. 11. Tizanidine 2 mg tablets, 1 tablet p.o. b.i.d. DISCHARGE DIAGNOSES: 1. Postoperative abdominal distention, inability to tolerate oral intake requiring readmission. 2. Recent laparoscopic appendectomy for perforated acute non perforated appendicitis. 3. Reactive airways disease. 4. Dyslipidemia. MD VIKTOR Wolff/KRISTOPHERL /[id number] Copies: ~ Electronically Signed By: LD NGUYEN MD 08/28/18 1851 PATIENT NAME: VINAY FERNANDEZ DISCHARGE SUMMARY DATE OF : 63 REPORT #: [id number] PHYSICIAN: LD NGUYEN MD PCP: KAMARI RAHMAN MD REPORT IS CONFIDENTIAL AND NOT TO BE RELEASED WITHOUT AUTHORIZATION
== END 2018-08-28 10:14 | disposition home or self-care (01) | DRG 392 ==
LOC: ED 08:46 → MS 08:47
PROVIDERS: ADMIT Surgery
DX: R14.0 Abdominal distension (gaseous) (principal); J45.909 Unspecified asthma, uncomplicated; E78.5 Hyperlipidemia, unspecified; F17.210 Nicotine dependence, cigarettes, uncomplicated; Z98.890 Other specified postprocedural states
CPT/HCPCS: 36415; 71045; 74018; 80053; 81001; 82247; 82465; 83615; 83690; 83735; 84100; 84478; 84550; 85025; 88304; 94762; 96361; 96374; 96375; 99284-25; J0131; J0780; J1170; J1200; J1644; J1885; J2405; J2550; J2765; J7030; J7120

== ENCOUNTER 2018-10-26 15:46 | Emergency (ER) | payer MEDICARE, OTHER ==
[~2018-10-26] VITALS: Ht 172.7 cm; Wt 80.5 kg
--- OUTSIDE RECORDS SUMMARY | 2018-10-26 15:50 | XMS ---
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 - Has Care Guidelines CARE PROVIDERS Luis Fernando Tapia Internal Medicine: Pulmonary Disease 06/26/2018-Current PHONE: Unknown [facility] Primary Care Current PHONE: Unknown Mark has no Care Guidelines for this patient. Care History Medical/Surgical 06/26/2018 [facility] - Patient is currently established with [facility]. If patient is seen in the ED during business hours. Please contact CHWs at [facility]. Care Recommendation: This patient has had 5 [...] providing care. E.D. VISIT COUNT (12 MO.) 1 [facility] 6 AMBER Albrecht TOTAL 7 NOTE: Visits indicate total known visits. 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 - Allergy status to penicillin - Right lower quadrant pain - Allergy status to other drugs, medicaments and biological substances status - Pain in right toe(s) 01/25/2018 08:50 [facility] TYPE: Emergency COMPLAINT: - ABD PAIN/NAUSEA DIAGNOSES: - Upper abdominal pain, unspecified - Other long term care social worker (current) 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 - Syncope and collapse - Nausea with vomiting, unspecified - Allergy status to other drugs, medicaments and biological substances status - Allergy status to penicillin 12/11/2017 11:34 [facility] TYPE: Emergency DIAGNOSES: - Vomiting - Dysphagia, unspecified - Epigastric pain - abdominal pain - Elevated white blood cell count, unspecified - Nausea INPATIENT VISIT TRACKING (12 MO.) 08/26/2018 16:11 [facility] TYPE: Medical Surgical COMPLAINT: - VOMITING/GASTRIC DISTENTION STATUS POST OP APPY DIAGNOSES: - Abdominal distension (gaseous) - Hyperlipidemia, unspecified - Unspecified asthma, uncomplicated - Nicotine dependence, cigarettes, uncomplicated - Other specified postprocedural states - Hyperlipidemia, unspecified - Nicotine dependence, cigarettes, uncomplicated - Abdominal distension (gaseous) - Unspecified acute appendicitis - Other specified postprocedural states - Unspecified asthma, uncomplicated 08/24/2018 19:38 [facility] TYPE: Medical Surgical COMPLAINT: - APPY DIAGNOSES: - Unspecified acute appendicitis - Cervicalgia - Fatty (change of) liver, not elsewhere classified - Other chronic pancreatitis - Nicotine dependence, other tobacco product, uncomplicated - Cervicalgia - Other long term care social worker (current) 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 - Other chronic pancreatitis - Allergy status to penicillin - 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 (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 of opiate analgesic - Appendicular concretions - Fatty (change of) liver, not elsewhere classified - Other chronic pain - Allergy status to other drugs, medicaments and biological substances status - Other senior care (current) 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 - Allergy status to other drugs, medicaments and biological substances status - Appendicular concretions - Other chronic pain - Allergy status to penicillin - skilled nursing (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 of opiate analgesic - Nicotine dependence, other tobacco product, uncomplicated 06/23/2018 16:29 [facility] TYPE: Medical Surgical COMPLAINT: - PANCREATITIS DIAGNOSES: - Unspecified mood [affective] disorder - Unspecified abdominal pain - Pain, unspecified - Other long term care social worker (current) 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 - Essential (primary) hypertension - Acute pancreatitis without necrosis or infection, unspecified - skilled nursing (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 of opiate analgesic - Allergy status to other drugs, medicaments and biological substances status - Nicotine dependence, cigarettes, uncomplicated - Other chronic pancreatitis - Allergy status to penicillin [email or web address]
[2018-10-26] MEDS ORDERED: ONDANSETRON ODT4 MG PO (18:56)
[2018-10-26] MEDS ORDERED: PROMETHAZINE HC25 M1 PO (18:56)
[2018-10-29] MEDS ORDERED: ZOFRAN4 MG PO (20:39)
[2018-10-29] MEDS ORDERED: CARAFATE1 GM PO (20:39)
== END 2018-10-26 20:30 | disposition home or self-care (01) ==
LOC: ED 15:46
DX: R11.2 Nausea with vomiting, unspecified (principal); E86.0 Dehydration; Z87.891 Personal history of nicotine dependence; Z88.0 Allergy status to penicillin; Z88.8 Allergy status to other drugs, medicaments and biological substances; Z79.899 Other long term (current) 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
CPT/HCPCS: 71045; 74177; 80053; 83690; 85025; 87502; 96361; 99284-25; J1885; J2060; J2405; J7030; Q9967

== ENCOUNTER 2019-01-03 17:23 | Emergency (ER) | payer MEDICARE, OTHER ==
[~2019-01-03] VITALS: Ht 172.7 cm; Wt 80.5 kg
[~2019-01-03 17:23] MED LIST changes: +CARAFATE1 GM PO; +ONDANSETRON ODT4 MG PO; +ZOFRAN4 MG PO
--- OUTSIDE RECORDS SUMMARY | 2019-01-03 17:26 | XMS ---
PreManage Notification: VINAY FERNANDEZ Security Side Splitter Events No recent Security Events currently on file CRITERIA MET - [facility] - Has Care Guidelines CARE PROVIDERS Luis Fernando Tapia Internal Medicine: Pulmonary Disease 06/26/2018-Current PHONE: Unknown CEE [place] Primary Care Current PHONE: Unknown Mark has no Care Guidelines for this patient. Care History Medical/Surgical 06/26/2018 [facility] - Patient is currently established with [facility]. If patient is seen in the ED during business hours. Please contact CHWs at [facility]. Care Recommendation: This patient has had 5 [...] providing care. E.D. VISIT COUNT (12 MO.) 8 AMBER Albrecht TOTAL 8 NOTE: Visits indicate total known visits. 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 10/26/2018 15:47 AMBER [place] TYPE: Emergency COMPLAINT: - VOMITING DIAGNOSES: - Nausea with vomiting, unspecified - Other termite technician (current) 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 - Allergy status to other drugs, medicaments and biological substances status - Dehydration - Allergy status to penicillin - Personal history of nicotine dependence 08/26/2018 08:46 AMBER [place] TYPE: Emergency COMPLAINT: - POST OP PROBLEM/ABD PAIN 08/24/2018 14:00 AMBER [place] TYPE: Emergency COMPLAINT: - NAUSEA,VOMITING 06/23/2018 16:28 AMBER PalacioEmmanuel Schneider [place] TYPE: Emergency COMPLAINT: - VOMITING 06/22/2018 16:32 AMBER Albrecht [place] TYPE: Emergency COMPLAINT: - ALTERED LOC DIAGNOSES: - Other usp (current) 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 - Allergy status to penicillin - Right lower quadrant pain - Allergy status to other drugs, medicaments and biological substances status - Pain in right toe(s) 01/25/2018 08:[address] [facility] [place] TYPE: Emergency COMPLAINT: - ABD PAIN/NAUSEA DIAGNOSES: - Upper abdominal pain, unspecified - Other termite technician (current) 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 - Syncope and collapse - Nausea with vomiting, unspecified - Allergy status to other drugs, medicaments and biological substances status - Allergy status to penicillin INPATIENT VISIT TRACKING (12 MO.) 08/26/2018 16:11 [...] tobacco product, uncomplicated - Cervicalgia - Other usp (current) 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 - Other chronic pancreatitis - Allergy status to penicillin - exterminator (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 of opiate analgesic - Appendicular concretions - Fatty (change of) liver, not elsewhere classified - Other chronic pain - Allergy status to other drugs, medicaments and biological substances status - Other termite technician (current) 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 - Allergy status to other drugs, medicaments and biological substances status - Appendicular concretions - Other chronic pain - Allergy status to penicillin - exterminator (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 of opiate analgesic - Nicotine dependence, other tobacco product, uncomplicated 06/23/2018 16:29 AMBER Phillip [place] TYPE: Observation COMPLAINT: - PANCREATITIS DIAGNOSES: - Unspecified mood [affective] disorder - Unspecified abdominal pain - Pain, unspecified - Other usp (current) 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 - Essential (primary) hypertension - Acute pancreatitis without necrosis or infection, unspecified - USP (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 of opiate analgesic - Allergy status to other drugs, medicaments and biological substances status - Nicotine dependence, cigarettes, uncomplicated - Other chronic pancreatitis - Allergy status to penicillin [id number]
== END 2019-01-03 20:34 | disposition home or self-care (01) ==
LOC: ED 17:23
DX: S20.211A Contusion of right front wall of thorax, initial encounter (principal); K21.9 Gastro-esophageal reflux disease without esophagitis; K29.00 Acute gastritis without bleeding; W18.2XXA Fall in (into) shower or empty bathtub, initial encounter; F17.200 Nicotine dependence, unspecified, uncomplicated; Z88.0 Allergy status to penicillin; Z88.8 Allergy status to other drugs, medicaments and biological substances; Z79.899 Other long term (current) 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
CPT/HCPCS: 71101; 80053; 85025; 96374; 96375; 99283-25; J1170; J1630; J1885; J2405; J2550

== ENCOUNTER 2019-05-15 12:38 | Emergency (ER) | payer MEDICARE, OTHER ==
[~2019-05-15] VITALS: Ht 172.7 cm; Wt 80.5 kg
[~2019-05-15 12:38] MED LIST changes: +PROMETHAZINE12.5 M1 PO
--- OUTSIDE RECORDS SUMMARY | 2019-05-15 12:42 | XMS ---
PreManage Notification: VINAY FERNANDEZ Security Churn Operator Events No recent Security Events currently on file CRITERIA MET - [facility] - Has Care Guidelines CARE PROVIDERS Luis Fernando Tapia Internal Medicine: Pulmonary Disease 06/26/2018-Current PHONE: Unknown CEE [place] Primary Care Current PHONE: Unknown Mark has no Care Guidelines for this patient. Care History Medical/Surgical 06/26/2018 [facility] - Patient is currently established with [facility]. If patient is seen in the ED during business hours. Please contact CHWs at [facility]. Care Recommendation: This patient has had 5 [...] providing care. E.D. VISIT COUNT (12 MO.) 10 AMBER Albrecht TOTAL 10 NOTE: Visits indicate total known visits. ED/UCC VISIT TRACKING (12 MO.) 05/15/2019 12:39 AMBER [facility] [place] TYPE: Emergency COMPLAINT: - ABD PAIN 03/23/2019 17:53 AMBER [place] TYPE: Emergency COMPLAINT: - POSSIBLE SIEZURE DIAGNOSES: - Other running specialist (current) 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 - Personal history of nicotine dependence - Unspecified abdominal pain - Acquired absence of other specified parts of digestive tract - Allergy status to analgesic agent status - Cyclical vomiting, not intractable 01/30/2019 14:24 AMBER [place] TYPE: Emergency COMPLAINT: - BODY CRAMPS/VOMITING DIAGNOSES: - Dehydration - Allergy status to penicillin - Cyclical vomiting, not intractable - Nicotine dependence, unspecified, uncomplicated - Allergy status to analgesic agent status - Other mcfp (current) 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 - Upper abdominal pain, unspecified - Acquired absence of other specified parts of digestive tract 01/03/2019 17:23 AMBER [place] TYPE: Emergency COMPLAINT: - RIGHT SIDE RIB/ ARM PAIN DIAGNOSES: - Allergy status to penicillin - Acute gastritis without bleeding - Other running specialist (current) 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 - Nicotine dependence, unspecified, uncomplicated - Contusion of right front wall of thorax, initial encounter - Gastro-esophageal reflux disease without esophagitis - Allergy status to other drugs, medicaments and biological substances status - Fall in (into) shower or empty bathtub, initial encounter 10/29/2018 17:21 AMBER [place] TYPE: Emergency COMPLAINT: - ABD PAIN/FLANK PAIN DIAGNOSES: - Nicotine dependence, unspecified, uncomplicated - Allergy status to penicillin - Allergy status to other drugs, medicaments and biological substances status - Epigastric pain - Cyclical vomiting, not intractable - Other mcfp (current) 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 10/26/2018 15:47 AMBER [place] TYPE: Emergency COMPLAINT: - VOMITING DIAGNOSES: - Nausea with vomiting, unspecified - Other mcfp (current) 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 - Allergy status to [...] COMPLAINT: - ALTERED LOC DIAGNOSES: - Other mcfp (current) 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 - Allergy status to penicillin - Right lower quadrant pain - Allergy status to other drugs, medicaments and biological substances status - Pain in right toe(s) INPATIENT VISIT TRACKING (12 MO.) 08/26/2018 16:11 [...] tobacco product, uncomplicated - Cervicalgia - Other mcfp (current) 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 - Other chronic pancreatitis - Allergy status to penicillin - snf (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 of opiate analgesic - Appendicular concretions - Fatty (change of) liver, not elsewhere classified - Other chronic pain - Allergy status to other drugs, medicaments and biological substances status - Other running specialist (current) 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 - Allergy status to other drugs, medicaments and biological substances status - Appendicular concretions - Other chronic pain - Allergy status to penicillin - account administrator (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 of opiate analgesic - Nicotine dependence, other tobacco product, uncomplicated 06/23/2018 16:29 AMBER [facility] [place] TYPE: Observation COMPLAINT: - PANCREATITIS DIAGNOSES: - Unspecified mood [affective] disorder - Unspecified abdominal pain - Pain, unspecified - Other running specialist (current) 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 - Essential (primary) hypertension - Acute pancreatitis without necrosis or infection, unspecified - account administrator (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 of opiate analgesic - Allergy status to other drugs, medicaments and biological substances status - Nicotine dependence, cigarettes, uncomplicated - Other chronic pancreatitis - Allergy status to penicillin [email or web address]
[2019-05-15] MEDS ORDERED: ONDANSETRON ODT8 MG PO (18:49)
[2019-05-15] MEDS ORDERED: REGLAN10 MG PO (18:49)
== END 2019-05-15 19:20 | disposition home or self-care (01) ==
LOC: ED 12:38
DX: K29.70 Gastritis, unspecified, without bleeding (principal); Z87.891 Personal history of nicotine dependence; Z88.0 Allergy status to penicillin; Z88.6 Allergy status to analgesic agent; Z79.899 Other long term (current) 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
CPT/HCPCS: 80053; 81001; 83690; 85025; 96361; 96374; 96375; 99284-25; J1630; J2060; J2550; J7030

== ENCOUNTER 2019-09-10 08:45 | Emergency (ER) | payer MEDICARE, OTHER ==
[~2019-09-10] VITALS: Ht 172.7 cm; Wt 81.8 kg
[~2019-09-10 08:45] MED LIST changes: +REGLAN10 MG PO
--- OUTSIDE RECORDS SUMMARY | 2019-09-10 08:50 | XMS ---
PreManage Notification: VINAY FERNANDEZ Security Lease Administrator Events No recent Security Events currently on file CRITERIA MET - [facility] - Has Care Guidelines - [facility] - 2 Visits in 30 Days CARE PROVIDERS CONNER LUU Dentist: Electric Meter Repairer Helper 05/16/2019-Current PHONE: [phone] Luis Fernando Tapia Internal Medicine: Pulmonary Disease 06/26/2018-Current PHONE: Unknown CEE COTTO [facility] Current PHONE: Unknown CEE [place] Primary Care Current PHONE: Unknown Mark has no Care Guidelines for this patient. Care History Medical/Surgical 06/26/2018 [facility] [place] - Patient is currently established with [facility]. If patient is seen in the ED during business hours. Please contact CHWs at [facility]. Care Recommendation: This patient has had [...] care. E.D. VISIT COUNT (12 MO.) 8 [facility] TOTAL 8 NOTE: Visits indicate total known visits. 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 - Allergy status to penicillin - Unspecified abdominal pain - Personal history of nicotine dependence - Allergy status to analgesic agent status - Gastritis, unspecified, without bleeding 03/23/2019 17:53 AMBER [place] TYPE: Emergency COMPLAINT: - POSSIBLE SIEZURE DIAGNOSES: - Other intermediate school teacher (current) 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 - Personal history of nicotine dependence - Unspecified abdominal pain - Acquired absence of other specified parts of digestive tract - Allergy status to analgesic agent status - Cyclical vomiting, in migraine, not intractable 01/30/2019 14:24 AMBER [place] TYPE: Emergency COMPLAINT: - BODY CRAMPS/VOMITING DIAGNOSES: - Dehydration - Allergy status to penicillin - Cyclical vomiting, in migraine, not intractable - Nicotine dependence, unspecified, uncomplicated - Allergy status to analgesic agent status - Other retirement (current) 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 - Upper abdominal pain, unspecified - Acquired absence of other specified parts of digestive tract 01/03/2019 17:23 AMBER Phillip [place] TYPE: Emergency COMPLAINT: - RIGHT SIDE RIB/ ARM PAIN DIAGNOSES: - Allergy status to penicillin - Acute gastritis without bleeding - Other intermediate school teacher (current) 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 - Nicotine dependence, unspecified, uncomplicated - Contusion of right front wall of thorax, initial encounter - Gastro-esophageal reflux disease without esophagitis - Allergy status to oth drug/meds/biol subst status - Fall in (into) shower or empty bathtub, initial encounter 10/29/2018 17:21 AMBER Phillip [place] TYPE: Emergency COMPLAINT: - ABD PAIN/FLANK PAIN DIAGNOSES: - Nicotine dependence, unspecified, uncomplicated - Allergy status to penicillin - Allergy status to oth drug/meds/biol subst status - Epigastric pain - Cyclical vomiting, in migraine, not intractable - Other intermediate school teacher (current) 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 10/26/2018 15:47 AMBER [place] TYPE: Emergency COMPLAINT: - VOMITING DIAGNOSES: - Nausea with vomiting, unspecified - Other intermediate school teacher (current) 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 - Allergy status to oth drug/meds/biol subst status - Dehydration - Allergy status to penicillin - Personal history of nicotine dependence INPATIENT VISIT TRACKING (12 MO.) No inpatient visits to display in this time frame [id number]
== END 2019-09-10 10:40 | disposition home or self-care (01) ==
LOC: ED 08:45
DX: R11.2 Nausea with vomiting, unspecified (principal); R10.13 Epigastric pain
CPT/HCPCS: 80053; 83690; 85025; 96374; 96375; 99284-25; J1200; J1630; J7030

== ENCOUNTER 2019-09-12 12:15 | Emergency (ER) | payer MEDICARE, OTHER ==
[~2019-09-12] VITALS: Ht 172.7 cm; Wt 80.7 kg
[2019-09-12] MEDS ORDERED: LISINOPRIL10 MG PO (12:42)
[2019-09-12] MEDS ORDERED: BUSPIRONE HCL15 MG PO (12:42)
[2019-09-12] MEDS ORDERED: ZENPEP DR 20,01 EACH PO (12:43)
[2019-09-12] MEDS ORDERED: HALOPERIDOL5 MG PO (14:19)
== END 2019-09-12 14:27 | disposition home or self-care (01) ==
LOC: ED 12:15
DX: R10.13 Epigastric pain (principal); R11.2 Nausea with vomiting, unspecified; Z88.0 Allergy status to penicillin; Z88.8 Allergy status to other drugs, medicaments and biological substances; Z79.899 Other long term (current) 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
CPT/HCPCS: 96372; 99283-25; J1200; J1630

== ENCOUNTER 2019-12-12 12:41 | Emergency (ER) | payer MEDICARE, OTHER ==
[~2019-12-12] VITALS: Ht 170.2 cm; Wt 75.8 kg
[~2019-12-12 12:41] MED LIST changes: +BUSPIRONE HCL15 MG PO; +HALOPERIDOL5 MG PO
--- OUTSIDE RECORDS SUMMARY | 2019-12-12 12:44 | XMS ---
PreManage Notification: VINAY FERNANDEZ Security Computer Service Technician Events No recent Security Events currently on file CRITERIA MET - History of Sepsis Dx CARE PROVIDERS CONNER LUU Dentist: Bag Filler Machine Operator 05/16/2019-Current PHONE: [phone] CEE COTTO [facility] Current PHONE: Unknown JOSIAH PEREZ Internal Medicine: Pulmonary Disease 06/26/2018-Current PHONE: Unknown Mark has no Care Guidelines for this patient. Care History Medical/Surgical 09/13/2019 [facility] - PATIENT HAS ANOTHER ER FOLLOW UP APT- WITH PCP DR LUU 09/14/2019. 09/11/2019 [facility] - PATIENT PRIMARY CARE PHYSICIAN- DR LUU-[facility] - PATIENT FOLLOWED UP WITH PCP DR LUU 09/11/2019 @ 9:20AM. Sanchez VISIT COUNT (12 MO.) 8 AMBER Albrecht TOTAL 8 NOTE: Visits indicate total known visits. ED/UCC VISIT TRACKING (12 MO.) 12/12/2019 12:42 AMBER [facility] [place] TYPE: Emergency COMPLAINT: - ABDOMINAL PAIN 09/12/2019 12:15 AMBER Stark HEmmanuel Schneider [place] TYPE: Emergency COMPLAINT: - ABD PAIN DIAGNOSES: - Nausea with vomiting, unspecified - Other group home (current) 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 - Allergy status to penicillin - Epigastric pain - Allergy status to other drugs, medicaments and biological sub 09/10/2019 08:47 [facility] [place] TYPE: Emergency COMPLAINT: - N/V FEVER DIAGNOSES: - Epigastric pain - Nausea with vomiting, unspecified 09/08/2019 09:38 [facility] Schneider [place] TYPE: Emergency COMPLAINT: - HEADACHE,VOMITING,SWEATS DIAGNOSES: - Allergy status to penicillin - Cyclical vomiting syndrome unrelated to migraine - Acute gastritis without bleeding - Unspecified abdominal pain 05/15/2019 12:39 [facility] Schneider [place] TYPE: Emergency COMPLAINT: - ABD PAIN DIAGNOSES: - Other group home (current) 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 - Allergy status to penicillin - Unspecified abdominal pain - Personal history of nicotine dependence - Allergy status to analgesic agent status - Gastritis, unspecified, without bleeding 03/23/2019 17:53 AMBER Phillip [place] TYPE: Emergency COMPLAINT: - POSSIBLE SIEZURE DIAGNOSES: - Other group home (current) 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 - Personal history of [...] status to analgesic agent status - Other group home (current) 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 - Upper abdominal pain, unspecified - Acquired absence of other specified parts of digestive tract 01/03/2019 17:23 AMBER Phillip [place] TYPE: Emergency COMPLAINT: - RIGHT SIDE RIB/ ARM PAIN DIAGNOSES: - Allergy status to penicillin - Acute gastritis without bleeding - Other terminal press operator (current) 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 - Nicotine dependence, unspecified, uncomplicated - Contusion of right front wall of thorax, initial encounter - Gastro-esophageal reflux disease without esophagitis - Allergy status to other drugs, medicaments and biological sub - Fall in (into) shower or empty bathtub, initial encounter INPATIENT VISIT TRACKING (12 MO.) No inpatient visits to display in this time frame [email or web address]
[2019-12-12] MEDS ORDERED: PROMETHAZINE HC25 MG PR (13:45)
[2019-12-12] MEDS ORDERED: PROMETHAZINE HC25 M1 PO (13:45)
== END 2019-12-12 14:05 | disposition home or self-care (01) ==
LOC: ED 12:41
DX: R11.15 Cyclical vomiting syndrome unrelated to migraine (principal); R10.13 Epigastric pain; G89.29 Other chronic pain; Z88.0 Allergy status to penicillin; Z88.8 Allergy status to other drugs, medicaments and biological substances; Z79.899 Other long term (current) 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
CPT/HCPCS: 80053; 83690; 85025; 96374; 96375; 99284-25; J1200; J1630; J7030

== ENCOUNTER 2020-03-03 10:53 | Emergency (ER) | payer MEDICARE, OTHER ==
[~2020-03-03] VITALS: Ht 170.2 cm; Wt 76.0 kg
--- OUTSIDE RECORDS SUMMARY | ~2020-03-03 | XMS | Encounter Summary ---
Demographics + + + | Address | [address] | | | [place] [address] | + + + | Home Phone | | + + + | Preferred Language | Unknown | + + + | Marital Status | Legally | + + + | Taoist Affiliation | 1013 | + + + | Race | Unknown | + + + | Ethnic Group | Unknown | + + + Author + + + | Author | [facility] | | | and [place] | + + + | Organization | [facility] | | | and [...] Team Providers + +------+ + | Care Name Plate Stamper Name | Role | Phone | + +------+ + | Tate Hoff | PCP | | + +------+ + Reason for Visit + +--------+ + | Reason | Onset | Comments | | | Date | | + +--------+ + | Procedure | 10/21/ | | | | 2020 | | + +--------+ + Encounter Details +--------+ + + + + | Date | Type | Department | Care Team | Description | +--------+ + + + + | 10/21/ | Telephone | [facility] | Girish Cleveland | Procedure | 2019 | | [facility] [address] MD [address] | | | | [address] | [address] [place] | | | | | [place], [place] | [place] [address] | | | | | [address] | [phone] | | | | | [phone] | | | +--------+ + + + + Social History + + + +--------+ + | Tobacco Use | Types | Packs/Day | Years | Date | | | | | Used | | + + + +--------+ + | Current Every Day | E-Cigarettes | 0.5 | 39 | Quit: 08/29/2019 | | Smoker | | | | | + + + +--------+ + + +---+---+---+ | Smokeless Tobacco: | | | | | Never Used | | | | + +---+---+---+ + + +---------+ + | Alcohol Use [...] this encounter Miscellaneous Notes Telephone Encounter - Ana Laura Angel RN - 10/23/2019 10:[address] Cleveland, he wants s urgery to remain as scheduled due to MRSA status and need for treatment and reswab prior to surgery. elephone Cynthia Steve - 10/23/2019 9:36 AM PSTSrini called back for Deya about accept ing surgery for tomorrow. He needs to know what time to see if he can get a ride. Please veena l him back. elephone Encounter - Deya Joyce, Sewer Line Photo Inspector - 10/23/2019 9:35 AM PSTCalled patient to n otify him that we have an opening for the OR schedule tomorrow. Verified with patient and he has not started taking medication. He will call his transportation to verify they can bring him tomorrow. 10:1 9 AM PSTTelephone Encounter - Deya Joyce Sewer Line Photo Inspector - 10/22/2019 12:16 PM PSTRe turned Srini's call. He has been rescheduled for surgery on 11/15/2019. Pre-op and post op a ppointments rescheduled. Appointment card sent in the mail. Patient verbalized understanding . elep ronal Encounter - Paz Guzman - 10/22/2019 9:07 AM PSTSrini and his called in to see when they might be getting their surgery rescheduled to. Apparently they showed up at [facility] this morning and were turned away with no explanation. Per Srini, they did n't even receive a phone call to tell them surgery was canceled. I did let him know that due to the Governor issuing a state of emergency we are taking more precautions. Srini wanted to know if he could restart his medications that he had stopped for surgery. A fter speaking with Ana Laura, I let the patient know he should wait until we have more direction on when we might be rescheduling him to. He expressed his understanding. Srini can be reached at [phone]. documented in this encounter Plan of Treatment Not on filedocumented as of this encounter Visit Diagnoses Not on filedocumented in this encounter Additional Health Concerns + + + + + | Infection | Onset Date | Last Indicated | Resolved Time | + + + + + | Methicillin-resistan | 10/11/2019 | 10/11/2019 | | | t Staphylococcus | | | | | aureus | | | | + + + + + documented as of this encounter"
--- OUTSIDE RECORDS SUMMARY | ~2020-03-03 | XMS | Encounter Summary ---
Demographics + + + | Address | [address] | | | [place] [address] | + + + | Home Phone | | + + + | Preferred Language | Unknown | + + + | Marital Status | Legally | + + + | Latter Day Affiliation | 1013 | + + + | Race | Unknown | + + + | Ethnic Group | Unknown | + + + Author + + + | Author | [facility] | | | and [place] | + + + | Organization | [facility] | | | [...] Team Providers + +------+ + | Care Nurse Coordinator Name | Role | Phone | + +------+ + | Tate Hoff | PCP | | + +------+ + Reason for Visit + + + | Reason | Comments | + + + | Pre-op Exam | C3-4, C6-7 ACDF | + + + Encounter Details +--------+---------+ + + + | Date | Type | Department | Care Team | Description | +--------+---------+ + + + | 10/10/ | Office | [facility] [place] | Jett Corado, | Cervical spinal | | 2019 | Visit | NEUROSURGERY [address] | PA-C [address] | stenosis (Primary | | | | [address] | [address] [place] | Dx); [place] | | | | [place], [place] | [place] [address] | stenosis of cervical | | | | [address] | [phone] | region; Cervical | | | | [phone] | | myelopathy (HCC) | +--------+---------+ + + + Social History [...] + + + | Blood Pressure | 112/64 | 10/10/2019 2:26 PM | | | | | PST | | + + + + + | Pulse | 52 | 10/10/2019 2:26 PM | | | | | PST | | + + + + + | Temperature | - | - | | + + + + + | Respiratory Rate | 18 | 10/10/2019 2:26 PM | | | | | PST | | + + + + + | Oxygen Saturation | 98% | 10/10/2019 2:26 PM | | | | | PST | | + + + + + | Inhaled Oxygen | - | - | | | Concentration | | | | + + + + + | Weight | 84.1 kg (185 lb 6.5 | 10/10/2019 2:26 PM | | | | oz) | PST | | + + + + + | Height | 170.2 cm (5' 7") | 10/10/2019 2:26 PM | | | | | PST | | + + + + + | Body Mass Index | 29.04 | 10/10/2019 2:26 PM | | | | | PST | | + + + + + documented in this encounter Patient Instructions Patient Instructions Ana Laura Angel RN - 10/10/2019 2:30 PM PSTWe will call you 2 business days prior to your scheduled surgery to let you know when to [facility] into [facility] on the day of surgery. If your health status changes between now and surgery please let us know. Do not eat or drink anything after midnight the night before your surgery. This includes c offee! You may take routine essential medications with a sip of water the morning of your s urgery. Please review the medications you were instructed to stop taking before surgery. Remember t o stop taking anti-inflammatory medications at least 7 days before surgery. This includes ib uprofen, Motrin, Advil, aspirin, naproxen, and Aleve. A copy of your signed Informed Consent Form and Pain Care Agreement are being provided for your reference. Be sure to read your Preparing for Surgery booklet that is being provided today. Adriana alvarez resources to prepare you for what to expect include attending Spine Class or viewing the hotelsmap.com version of Spine Class on [employer] Preparing for Neck Surgery ([place]) https://www.[place].[email or web address]/watch?v=m8Wckc3iYCu Here are some resources that may be helpful for managing postoperative pain: Persistent Pain Toolkit for Patients and Families: Includes education on pain in general (multiple languages) and education on pain after inju ry or surgery. Relaxation videos practice techniques to quiet pain. https://[place].org/our-services/p/wicajhkhvk-oxfsfmdvit-rknx/rpbprexxja-ubws-dnw lkit/lvxnovi-ffe-gxtcwmul-toolkit/etvpxm-ifgk-zbnxfeklk/ Surgical Pain Handout: https://www.fauzia.co.gov/Portals/1/Documents/9220/063765-DuobkuuCjcuseyyuxjl-YtwkhpdbQzea.pdf If you have any questions or concerns, please call the neurosurgery clinic o r send us a My Chart message. P M PST documented in this encounter Progress Notes Ana Laura Angel RN - 10/10/2019 2:30 PM PSTPatient was provided a copy of the Preparing for Surgery booklet and encouraged to read this to prepare for surgery and recovery. Informed consent for the planned procedure was signed and a copy provided to the patient al elizabeth with a signed copy of the Pain Care Agreement. Patient was advised to stop taking the following medications:Aspirin and naproxen-hold 7 da ys prior to surgery Lisinopril-hold 24 hrs prior to surgery Preoperative instructions were discussed and all questions were answered at this time. Patient was encouraged to contact the neurosurgery clinic with any questions, concerns, or changes in health status or medications prior to surgery. Patient was advised that we will notify regarding check in for surgery 2 business days prio r to the date of surgery. Advised on surgical wipes usage and wipes provided at this time. ESuJett lincoln PA-C - 10/10/2019 2:30 PM PST Jett Corado PA-C [address] [facility] [address] [place] [address] FAX: [phone] NEUROSURGERY HISTORY AND PHYSICAL EXAMINATION CHIEF COMPLAINT: Chief Complaint Patient presents with Pre-op Exam C3-4, C6-7 ACDF HISTORY OF PRESENT ILLNESS: Srini Johnson is a 54 y.o. male present today for his pre-op exam. He is scheduled for a Revision fusion at C3-4, C6-7 on 10/22/[address] Cleveland. He was l ast seen on 08/29/19 with the complaint of neck symptoms that began several years ago. He has a history of a Cervical fusion from C4-6 about 11 years ago. The neck symptoms have been gradually worsening. He rates the neck pain as severe. The ne ck symptoms are daily and continuous. He describes the neck pain as sharp, numbing, tinglin g and throbbing. He describes numbness in the left neck/shoulder that has worsened in past 4 months. He has increased pain and limited range of motion. He has difficulties lifting his arms above the shoulder and is only able to turn his head left and right about 1/[address] He does have to push his spouse in wheel chair and states he can't use a cane because of the sh oulder pain. He complains of having difficulties getting comfortable. He states he has quit using cigarettes but now only vapes nicotine. He has PTSD and is bipolar. He has had no interval changes in the severity or character of his symptoms since his last visit. He denies any shortness of breath or chest pain. He denies any fever or chills. He has no open sores on his body and has not had any antibiotics recently. PAST MEDICAL HISTORY: Past Medical History: Diagnosis Date Brachial neuritis or radiculitis Bradycardia Cannabis abuse, in remission Chronic pancreatitis (HCC) Cyclic vomiting syndrome Depression with anxiety GERD (gastroesophageal reflux disease) Hypertension Iron metabolism disorder MRSA nasal colonization 10/10/2019 Nicotine dependence, cigarettes, uncomplicated Other cervical disc degeneration, unspecified cervical region Other intervertebral disc degeneration, lumbar region Panic disorder without agoraphobia Perirectal abscess Photophobia PTSD (post-traumatic stress disorder) Recurrent biliary colic Sleep apnea no CPAP PAST SURGICAL HISTORY: Past Surgical History: Procedure Laterality Date CERVICAL DISC ARTHROPLASTY Anterior 09/13/2006 Dr. Crow @ [facility] C4-C5 and C5-C6 anterior cervical discectomy and fusion with anterior farida te from C4-C6. CERVICAL FUSION 2009 C4-6 CHOLECYSTECTOMY, LAPAROSCOPIC 05/12/2009 Dr. [email or web address]: Cholecystectomy, lap with intraoperative cholangiograms EGD AND COLONOSCOPY 03/15/2014 Dr. Cerna, moderate hiatal hernia, patchy antral and body gastritis GASTRIC FUNDOPLICATION HEMORRHOID SURGERY 08/22/2005 HIATAL HERNIA REPAIR 08/22/2004 RECTAL SURGERY 01/20/2014 Dr. Faria; INCISION OF RECTAL ABSCESS TONSILLECTOMY AND ADENOIDECTOMY 08/22/1969 UPPER GASTROINTESTINAL ENDOSCOPY 10/30/2003 Dr. Castillo @[facility] POSTOPERATIVE DIAGNOSIS: HIATAL HERNIA AND DISTAL ESOPHAGITIS CURRENT MEDICATIONS: Current Outpatient Medications Medication Sig Dispense Refill ijuychv-hyxtsk-dpfstagr (ZENPEP) 84,000-20,000-63,000 units per capsule Take 1 capsule by mouth 3 (three) times daily. aspirin 81 mg EC tablet Take 81 mg by mouth Daily. atorvaSTATin (LIPITOR) 20 mg tablet Take 20 mg by mouth Daily. busPIRone (BUSPAR) 10 MG tablet Take 10 mg by mouth 3 times daily. dicyclomine (BENTYL) 20 MG tablet Take 1 tablet by mouth 4 times daily. haloperidol (HALDOL) 5 mg tablet TAKE 1 TO 2 TABLETS BY MOUTH EVERY 8 HOURS NEEDED F OR NAUSEA icosapent ethyl (VASCEPA) 1 g capsule Take 1 mg by mouth 2 (two) times daily. (Patient taking differently: Take 2 g by mouth 2 times daily.) lamoTRIgine (LAMICTAL) 25 mg tablet Take 25 mg by mouth Daily. levalbuterol (XOPENEX HFA) 45 mcg/puff inhaler Inhale 45 mcg into the lungs 2 (two) caro es daily. lidocaine (XYLOCAINE) 2% viscous solution USE DIRECTED MIX 1 PART DIPHENHYDRAMINE 12 .5MG ML 1 PART 2 LIDOCAINE 1 PART MAALOX SWISH AND SWALLOW 10 ML S THREE TIMES DAILY lisinopril (PRINIVIL, ZESTRIL) 10 mg tablet Take 10 mg by mouth daily. metoprolol succinate (TOPROL-XL) 25 mg 24 hr tablet TAKE 1 TABLET BY MOUTH ONCE DAILY. NOTICE STRENGTH CHAGNE Socialbomb. Devices (QUAD CANE) MISC Cane wood 8 [...] under the tongue daily a s needed. oxyCODONE-acetaminophen (PERCOCET) 5-325 mg per tablet Take 1 tablet by mouth every 6 h ours as needed. pantoprazole (PROTONIX) 40 mg tablet Take 40 mg by mouth daily. prazosin (MINIPRESS) 1 mg capsule Take 1 mg by mouth nightly. promethazine (PHENERGAN) 25 mg tablet TAKE 1 TABLET BY MOUTH 4 TIMES DAILY NEEDED FO R NAUSEA sertraline (ZOLOFT) 100 mg tablet Take 100 mg by mouth every evening. (Patient taking d ifferently: Take 200 mg by mouth Daily.) sucralfate (CARAFATE) 1 g tablet Take 1 g by mouth 4 times daily as needed. No current facility-administered medications for this visit. ALLERGIES: Allergies Allergen Reactions Baclofen Swelling, Rash and Other (See Comments) Almost had a stroke Cat Hair Extract Anaphylaxis Swelling in eyes, nose, throat, body, Difficulty breathing. Cyclobenzaprine Anaphylaxis and Shortness Of Breath Diclofenac Other (See Comments) Muscles and everything tense up Patch. Patient reports going into shock Penicillins Anaphylaxis Sulfamethoxazole-Trimethoprim Headache SOCIAL HISTORY: The patient reports that he has been smoking e-cigarettes. He has a 20.00 pack-year smokin g history. He has never used smokeless tobacco. He reports previous alcohol use. He reports current drug use. Drug: Marijuana. FAMILY HISTORY: Family History Problem Relation Age of Onset Heart disease Mother Lung cancer Mother Stomach cancer Mother Diabetes, NIDDM Mother Coronary artery disease Mother Stroke Mother Heart disease Father Coronary artery disease Father with Stents Kidney disease Father Kidney Stones Lung cancer Maternal Grandmother Diabetes, NIDDM Maternal Grandmother Cancer Maternal Grandfather Testicular Cancer No known problems Paternal Grandmother No known problems Paternal Grandfather Drug abuse Brother Ovarian cancer Other Review of Systems Constitutional: Positive for diaphoresis. HENT: Positive for tinnitus. Eyes: Positive for blurred vision (glasses) and photophobia. Respiratory: Positive for wheezing. Musculoskeletal: Positive for neck pain. Skin: Positive for itching. Neurological: Positive for tingling (left neck and bilateral arms) and headaches. Endo/Heme/Allergies: Positive for polydipsia. Psychiatric/Behavioral: Positive for depression. The patient is nervous/anxious and has ins omnia. PHYSICAL EXAMINATION: Blood pressure 112/64, pulse 52, resp. rate 18, height 1.702 m (5' 7"), weight 84.1 kg (185 lb 6.5 oz), SpO2 98 %. Body mass index is 29.04 kg/m. GENERAL: Srini Johnson is in no acute distress with unlabored respirations. The patient d oes not appear comfortable throughout the exam today. HEENT: Head: Normocephalic/atraumatic with no areas of recent trauma. Eyes: Normal sclerae without icterus. Ears: No drainage or tenderness. Nasopharnyx: Clear without drainage. Oropharnyx: Clear without erythema. NECK (ANTERIOR): Supple and without palpable masses. He has a well-healed left transverse incision for an anterior cervical fusion CHEST: Clear to ausculation without crackles or wheeze. HEART: Regular rate and rhythm without murmurs. ABDOMEN: Soft, non-tender, non-distended, and without palpable masses. SPINE: Grossly normal EXTREMITIES: No cyanosis, clubbing, or edema. Distal pulses are palpable. NEUROLOGICAL EXAM: MENTAL STATUS: He is awake, alert, and oriented. He follows simple and complex commands. His speech is fluent, he comprehends speech well, and he repeats well. He has no apparent deficits with short or halfway memory. CRANIAL NERVES: II: Acuity is intact. Leonard are full to confrontation. III, IV, : The pupils are reactive. Extraocular movements are intact. No ptosis is note d. V: Facial sensation is intact and symmetric. VII: Facial movements are symmetric. VIII: Hearing is intact bilaterally. IX, X: The uvula and palate move appropriately. XI: Shrug is equal bilaterally. XII: Tongue protrusion is midline. MOTOR EXAM: (5 IS NORMAL) * Indicates pain limited MUSCLE/ MOVEMENT: RIGHT LEFT Deltoids 5 5 Biceps 5 5 Triceps 5 5 Wrist Flexion 5 5 Wrist Extension 5 5 Interossei 5 5 APB 5 5 Marine Engine Machinist Strength 5 5 * Discomfort in the exam today SENSORY EXAM: Sensory exam shows no diminished sensation to light touch or pain throughout the upper and lower extremities. REFLEXES: (2 OR 2+ IS NORMAL) REFLEX: RIGHT LEFT BICEPS 0 3 BRACHIORADIALIS 3 with spread 3 with spread TRICEPS 3 2 PATELLAR 3 3 ACHILLES 3 3 ARGUETA'S NEGATIVE POSITIVE CLONUS ABSENT ABSENT PLANTAR NEUTRAL upgoing BABINSKI NEGATIVE POSITIVE TEST AND RADIOGRAPHIC REVIEW: His imaging was reviewed in detail during the visit. The MRI from 08/06/2019 shows a well incorporated C4-5 and C5-6 anterior cervical fusion with internal fixation anteriorly. Unfo rtunately the patient has gone on to develop adjacent segment disease above and below the fu matt with cord compression and early signs of signal change within the cord at both C3-4 and C6-7, on the T2-weighted images. Cervical x-rays from 08/06/2019 shows no major instability. 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 NEUROSURGICAL DIAGNOSES: Encounter Diagnoses Name Primary? Cervical spinal stenosis Yes [place]am[place] stenosis of cervical region Cervical myelopathy (HCC) GENERAL DIAGNOSES: Past Medical History: Diagnosis Date Brachial neuritis or radiculitis Bradycardia Cannabis abuse, in remission Chronic pancreatitis (HCC) Cyclic vomiting syndrome Depression with anxiety GERD (gastroesophageal reflux disease) Hypertension Iron metabolism disorder MRSA nasal colonization 10/10/2019 Nicotine dependence, cigarettes, uncomplicated Other cervical disc degeneration, unspecified cervical region Other intervertebral disc degeneration, lumbar region Panic disorder without agoraphobia Perirectal abscess Photophobia PTSD (post-traumatic stress disorder) Recurrent biliary colic Sleep apnea no CPAP PLAN: Patient has largely quit smoking he has only had a couple cigarettes in the last 2 da ys. He is still using an e-cigarette but is only using 6 mg of nicotine and is planning on cutting down to 1.5 mg in the next couple of days. Because he is not completely off of earnest demetra I am planning on getting a bone growth stimulator authorized for him. We will decide a t 1 month whether or not to issue this to him. If he is doing well, we may hold off on issu ing it and try to spare this expensive treatment. Srini Johnson presented today ,and greatly appreciate this referral. We spent a majority of the visit discussing his neurologic problems. He has a history of a left cervical fusion at C4-5, C5-6 about 11 years ago. The patient has a spondylitic cervical myelopathy due to his adjacent segment disease at C3 -4 and C6-7. We had a lengthy discussion with the patient about his options for care including surgical and non-surgical options. We discussed that he needs to stop all nicotine products and must stop 100% before the day of surgery. We discussed in detail the patient's options for a Revision fusion at C3-4, C6-7. We discussed the risks, alternatives, and benefits to surgical intervention with Mr. Johnson i jatinder judge. These risks included but were not limited to , stroke, heart attack, numbnes s, weakness, paralysis, failure of fusion, failure of hardware, subsidence, adjacent segment degeneration, cerebrospinal fluid leak, bleeding, infection, injury to surrounding tissues and organs, injury from positioning, injury to the nerves, difficulty with breathing, diffic ulty with swallowing, difficulty with voice change, and need for additional surgery. Surgical options were discussed and the technique to be employed was described in detail to himAll his questions were answered. We discussed that the goal of the surgery is to prevent progression of his disease, but it is not considered a cure. We also discussed that although some patients may obtain 100% sym ptom relief, it is realistic to anticipate that some symptoms will continue postoperatively despite a successful surgery. We also discussed that there is no guarantee that surgery will provide improvement in his c ondition, and indeed may even worsen the symptoms. We also discussed that in the course of the procedure the operative plan may be altered to include more, less, or different levels d epending upon findings in order to provide him with the best possible outcome. For multiple (more than 1 level fusions), I recommend the use of a bone growth stimulator p ostoperatively. This is to improve the probability and rate of fusion. Patient is scheduled on 10/22/19 to proceed as discussed. Portions of the HPI and plan were pulled forward from 08/29/19. Information has been added and updated during the office visit today 10/12/19. I, Girish Cleveland MD, personally performed the services described in this documentatio n, as scribed by DAKOTA Perez in my presence, and it is both accurate and complete. Jett Corado PA-C 10/12/19 ELECTRONICALLY SIGNED BY: Jett Corado PA-C, 10/12/2019 9:53 AM documented in thi s encounter Plan of Treatment Not on filedocumented as of this encounter Visit Diagnoses + + | Diagnosis | + + | Cervical spinal stenosis - Primary Spinal stenosis in cervical region | + + | [place]am[place] stenosis of cervical region Spinal stenosis in cervical region | + + | Cervical myelopathy (HCC) Cervical spondylosis with myelopathy | + + documented in this encounter
--- OUTSIDE RECORDS SUMMARY | ~2020-03-03 | XMS | Encounter Summary ---
Demographics + + + | Address | [address] | | | [place] [address] | + + + | Home Phone | | + + + | Preferred Language | Unknown | + + + | Marital Status | Legally | + + + | Anabaptist Affiliation | 1013 | + + + | Race | Unknown | + + + | Ethnic Group | Unknown | + + + Author + + + | Author | [facility] | | | and [place] | + + + | Organization | [facility] | | | [...] Team Providers + +------+ + | Care Screw Machine Hand Name | Role | Phone | + +------+ + | Tate Hoff | PCP | | + +------+ + Reason for Visit + +--------+ + | Reason | Onset | Comments | | | Date | | + +--------+ + | Medication Screening | 09/26/ | NS medications to stop prior to surgery | | | 2020 | | + +--------+ + Encounter Details +--------+ + + + + | Date | Type | Department | Care Team | Description | +--------+ + + + + | 09/26/ | Telephone | [facility] | Girish Cleveland | Medication Screening | | 2019 | | NEUROSURGERY [address] | MD Carissa [address] | (NS medications to | | | | [address] | [address] [place] | stop prior to | | | | [place] | [place] [address] | surgery) | | | | [address] | [phone] | | | | | [phone] | | | +--------+ + + + [...] this encounter Miscellaneous Notes Telephone Encounter - Saranya Chris RN - 02/01/2020 10:22 AM PDTMedications reviewed by oRshan Shelton CMA, no changes. TTelephone Encounter - Ana Laura Angel RN - 01/10/2020 4:13 PM PDTReviewed the patient's med ication list. The following medications that the patient is currently taking are listed on the medications to avoid before surgery form as medications that may need to be held prior t o surgery. Per Dr Cleveland request, hold as indicated below: Aspirin and naproxen-hold 7 days prior to surgery Lisinopril-hold 24 hrs prior to surgery Please review medication list again at preop appointment to make sure medication list has n ot changed and update as needed. Post op pain management by neurosurgery is expected for up to 4 weeks following the planned procedure. Pain care agreement in pending file, needs resigned. elephone Encounter - Kristin Rivera CMA - 01/10/2020 3:58 PM PDTSurgery rescheduled to 02/25/20. PreOp scheduled on 02/01/20. Covid testing information mailed out to patient today. Please review chart for changes. 3 :59 PM PDTTelephone Encounter - Ana Laura Angel RN - 10/10/2019 4:06 PM PSTNo medication priscilla nge noted, advised as previously noted. 20 4:07 PM PSTTelephone Encounter - Ana Laura Angel RN - 09/26/2019 3:30 PM PSTReviewed the patient's medication list. The following medications that the patient is currently taking are listed on the medications to avoid before surgery form as medications that may need to b e held prior to surgery. Per Dr Cleveland request, hold as indicated below: Aspirin and naproxen-hold 7 days prior to surgery Lisinopril-hold 24 hrs prior to surgery Please review medication list again at preop appointment to make sure medication list has n ot changed and update as needed. Post op pain management by neurosurgery is expected for up to 4 weeks following the planned procedure. Pain care agreement with packet.Electronically signed by Ana Laura Angel RN at 12/2019 3:37 PM PSTTelephone Encounter - Sandie Stanley Cert MA - 09/26/2019 3:19 PM PSTTh is patient is scheduled to have a C3-4, C6-7 ACDF on 10/22/[address] Cleveland. Please re view his medication list and advise on which ones need stopped prior to surgery. Also, plea se generate a pain agreement. Thank you, Sandie documented in this encounter Plan of Treatment [...]
--- OUTSIDE RECORDS SUMMARY | ~2020-03-03 | XMS | Encounter Summary ---
Demographics + + + | Address | [address] | | | [place] [address] | + + + | Home Phone | | + + + | Preferred Language | Unknown | + + + | Marital Status | Legally | + + + | Jehovah'S Witness Affiliation | 1013 | + + + | Race | Unknown | + + + | Ethnic Group | Unknown | + + + Author + + + | Author | [facility] | | | and [place] | + + + | Organization | [facility] | | | [...] Team Providers + +------+ + | Care Fitting Room Inspector Name | Role | Phone | + +------+ + | Tate Hoff | PCP | | + +------+ + Reason for Visit + +--------+ + | Reason | Onset | Comments | | | Date | | + +--------+ + | Patient Education | 10/10/ | spine class | | | 2020 | | + +--------+ + Encounter Details +--------+ + + + + | Date | Type | Department | Care Team | Description | +--------+ + + + + | 10/10/ | Telephone | [facility] | Girish [place] | Patient Education | | 2019 | | [address] | MD Carissa [address] | (spine class) | | | | [address] | [address] [place] | | | | | [place], [place] | [place] [address] | | | | | [address] | [phone] | | | | | [phone] | | | +--------+ + + + [...] - Ana Laura Angel RN - 10/10/2019 1:25 PM PSTPatient attended spine cla ss. All questions were answered at this time. He was advised to call the clinic if he had an y questions. He verbalized understanding.Electronically signed by Ana Laura Angel RN at 2019 1:26 PM PSTdocumented in this encounter Plan of Treatment Not on filedocumented as of this encounter Visit Diagnoses Not on filedocumented in this encounter"
--- OUTSIDE RECORDS SUMMARY | ~2020-03-03 | XMS | Clinical Summary ---
Demographics + + + | Address | [address] | | | [place] [address] | + + + | Home Phone | | + + + | Preferred Language | Unknown | + + + | Marital Status | Legally | + + + | Denominational Affiliation | 1013 | + + + | Race | Unknown | + + + | Ethnic Group | Unknown | + + + Author + + + | Author | [facility] | | | and [place] | + + + | Organization | [facility] | | [...] Team Providers + +------+ + | Care Software Tools Build Engineer Name | Role | Phone | + +------+ + | Tate Hoff | PCP | | + +------+ + Allergies + + + + + + | Active Allergy | Reactions | Severity | Noted | Comments | | | | | Date | | + + + + + + | Baclofen | Swelling, Rash, | High | 09/28/19 | Almost had a | | | Other (See Comments) | | 13 | stroke | + + + + + + | Cat Hair Extract | Anaphylaxis | High | 11/02/19 | Swelling in eyes, | | | | | 09 | nose, throat, body, | | | | | | Difficulty | | | | | | breathing. | + + + + + + | Cyclobenzaprine | Anaphylaxis, | High | 11/30/19 | | | | Shortness Of Breath | | 15 | | + + + + + + | Diclofenac | Other (See Comments) | High | 07/02/20 | Muscles and | | | | | 13 | everything tense up | | | | | | Patch. Patient | | | | | | reports going into | | | | | | shock | + + + + + + | Penicillins | Anaphylaxis | High | 11/02/19 | | | | | | 09 | | + + + + + + | Sulfamethoxazole-Tri | Headache | Low | 10/25/19 | | | methoprim | | | 16 | | + + + + + + Medications + + + +---------+------+------+-------+ | Medication | Sig | Dispensed | Refills | Star | End | Statu | | | | | | t | Date | s | | | | | | Date | | | + + + +---------+------+------+-------+ | pantoprazole | Take 40 mg by mouth | | 0 | 04/23 | | Activ | | (PROTONIX) 40 mg | daily. | | | 4/20 | | e | | tablet | | | | 17 | | | + + + +---------+------+------+-------+ | | Take 1 capsule by | | 0 | 01/2 | | Activ | | palmdwj-qarhua-nglop | mouth 3 (three) | | | 3/20 | | e | | ase (ZENPEP) | times daily. | | | 19 | | | | [phone],000 | | | | | | | | units per capsule | | | | | | | + + + +---------+------+------+-------+ | ondansetron | Place 4 mg under the | | 0 | 02/1 | | Activ | | (ZOFRAN ODT) 4 mg | tongue daily as | | | 4/20 | | e | | disintegrating | needed. | | | 18 | | | | tablet | | | | | | | + + + +---------+------+------+-------+ | lisinopril | Take 10 mg by mouth | | 0 | 09/2 | | Activ | | (PRINIVIL, ZESTRIL) | daily. | | | 4/20 | | e | | 10 mg tablet | | | | 17 | | | + + + +---------+------+------+-------+ | icosapent ethyl | Take 1 mg by mouth 2 | | 0 | 01/2 | | Activ | | (VASCEPA) 1 g | (two) times daily. | | | 3/20 | | e | | capsule | | | | 19 | | | + + + +---------+------+------+-------+ | levalbuterol | Inhale 45 mcg into | | 0 | 03/2 | | Activ | | (XOPENEX HFA) 45 | the lungs 2 (two) | | | 6/20 | | e | | mcg/puff inhaler | times daily. | | | 18 | | | + + + +---------+------+------+-------+ | sertraline | Take 100 mg by mouth | | 0 | 04/2 | | Activ | | (ZOLOFT) 100 mg | every evening. | | | 4/20 | | e | | tablet | | | | 18 | | | + + + +---------+------+------+-------+ | nitroglycerin | PLACE 1 TABLET UNDER | | 0 | 04/1 | | Activ | | (NITROSTAT) 0.4 mg | TONGUE EVERY 5 MIN | | | 6/20 | | e | | SL tablet | IF NEEDED FOR CHEST | | | 18 | | | | | PAIN UP TO 3DOSES, | | | | | | | | CALL 911 IF NO | | | | | | | | RELIEF | | | | | | + + + +---------+------+------+-------+ | dicyclomine | Take 1 tablet by | | 0 | 11/2 | | Activ | | (BENTYL) 20 MG | mouth 4 times daily. | | | 9/20 | | e | | tablet | | | | 18 | | | + + + +---------+------+------+-------+ | atorvaSTATin | Take 20 mg by mouth | | 0 | | | Activ | | (LIPITOR) 20 mg | Daily. | | | | | e | | tablet | | | | | | | + + + +---------+------+------+-------+ | busPIRone (BUSPAR) | Take 10 mg by mouth | | 0 | | | Activ | | 10 MG tablet | 3 times daily. | | | | | e | + + + +---------+------+------+-------+ | sucralfate | Take 1 g by mouth 4 | | 0 | | | Activ | | (CARAFATE) 1 g | times daily as | | | | | e | | tablet | needed. | | | | | | + + + +---------+------+------+-------+ | aspirin 81 mg EC | Take 81 mg by mouth | | 0 | | | Activ | | tablet | Daily. | | | | | e | + + + +---------+------+------+-------+ | metoprolol | TAKE 1 TABLET BY | | 0 | 10/3 | | Activ | | succinate | MOUTH ONCE DAILY. | | | 09/10 | | e | | (TOPROL-XL) 25 mg 24 | NOTICE STRENGTH | | | 17 | | | | hr tablet | CHAGNE | | | | | | + + + +---------+------+------+-------+ | Misc. Devices | Cane wood 8 ball | | 0 | 05/0 | | Activ | | (QUAD CANE) MISC | handle black, | | | 1/20 | | e | | | requires for safe in | | | 12 | | | | | home mobility | | | | | | + + + +---------+------+------+-------+ | naproxen | TAKE 1 TABLET BY | | 0 | 06/1 | | Activ | | (NAPROSYN) 500 mg | MOUTH EVERY 12 HOURS | | | 4/20 | | e | | tablet | NEEDED WITH FOOD | | | 19 | | | | | OR MILK | | | | | | + + + +---------+------+------+-------+ | haloperidol | TAKE 1 TO 2 TABLETS | | 0 | 01/2 | | Activ | | (HALDOL) 5 mg tablet | BY MOUTH EVERY 8 | | | 2/20 | | e | | | HOURS NEEDED FOR | | | 20 | | | | | NAUSEA | | | | | | + + + +---------+------+------+-------+ | lamoTRIgine | Take 25 mg by mouth | | 0 | 02/0 | | Activ | | (LAMICTAL) 25 mg | Daily. | | | /20 | | e | | tablet | | | | 20 | | | + + + +---------+------+------+-------+ | lidocaine | USE DIRECTED MIX | | 0 | 01/2 | | Activ | | (XYLOCAINE) 2% | 1 PART | | | 20 | | e | | viscous solution | DIPHENHYDRAMINE | | | 20 | | | | | 12.5MG ML 1 PART 2 | | | | | | | | LIDOCAINE 1 PART | | | | | | | | MAALOX SWISH AND | | | | | | | | SWALLOW 10 ML S | | | | | | | | THREE TIMES DAILY | | | | | | + + + +---------+------+------+-------+ | | Take 1 tablet by | | 0 | 02/0 | | Activ | | oxyCODONE-acetaminop | mouth every 6 hours | | | 5/20 | | e | | hen (PERCOCET) 5-325 | as needed. | | | 20 | | | | mg per tablet | | | | | | | + + + +---------+------+------+-------+ | prazosin | Take 1 mg by mouth | | 0 | 02/0 | | Activ | | (MINIPRESS) 1 mg | nightly. | | | 6/20 | | e | | capsule | | | | 20 | | | + + + +---------+------+------+-------+ | promethazine | TAKE 1 TABLET BY | | 0 | 01/2 | | Activ | | (PHENERGAN) 25 mg | MOUTH 4 TIMES DAILY | | | 2/20 | | e | | tablet | NEEDED FOR NAUSEA | | | 20 | | | + + + +---------+------+------+-------+ | mupirocin | Apply to both | 22 g | 0 | 06/1 | | Activ | | (BACTROBAN) 2% | nostrils twice daily | | | 6/20 | | e | | ointment | starting today for | | | 20 | | | | | 8 days total. | | | | | | + + + +---------+------+------+-------+ | ergocalciferol | | | 0 | 05/0 | | Activ | | (VITAMIN D2) 1.25 mg | | | | 5/20 | | e | | (50,000 units) | | | | 20 | | | | capsule | | | | | | | + + + +---------+------+------+-------+ Active Problems + + + | Problem | Noted Date | + + + | Cervical spinal stenosis | 02/01/2020 | + + + | GERD (gastroesophageal reflux disease) | 08/29/2019 | + + + + + | Overview: 10/30/2003: Upper Endoscopy Biopsy, Dr. Castillo [facility]: | | "Hiatal hernia, distal esophagitis with suspected Aponte's | | esophageal changes. H. Pylori Negative." | + + + + + | Cervical myelopathy | 08/29/2019 | + + + | Obstructive sleep apnea on CPAP | 09/13/2018 | + + + + + | Overview: Overview: USES CPAP at 8cm H2O pressure | + + + + + | Chronic pancreatitis | 09/13/2018 | + + + + + | Overview: Alcohol-induced chronic pancreatitis | + + + + + | HTN (hypertension) | 08/27/2016 | + + + | COPD (chronic obstructive pulmonary disease) | 12/11/2014 | + + + + + | Overview: Inhaler Use | + + + + + | Chronic pain | 11/29/2014 | + + + + + | Overview: Overview: | | Overview: | | 3/5/15- narcotic agreement and ameritox done. | + + + + + | Hiatal hernia | 03/15/2014 | + + + | Smoker | 2014 | + + + + + | Overview: States quit after 40 years 08/2019, Questionnaire | | states smoking 02/2020 | + + + + + | Tobacco dependence syndrome | 2014 | + + + | Adjacent segment disease with spinal stenosis | 12/01/2011 | + + + | Hyperlipidemia, mixed | 11/18/2010 | + + + + + | Overview: Lab Review: 11/17/2010 TRIGLYCERIDES (mg/dL) 220 | | 11/17/2010 CHOLESTEROL, TOTAL (mg/dL) 208 11/17/2010 HDL | | CHOLESTEROL (mg/dL) 36 11/17/2010 LDL CHOLESTEROL CALC (mg/dL) 128 | | 11/17/2010 LDL/HDL RATIO (ratio units) 3.6 11/17/2010 VLDL | | CHOLESTEROL OSMIN (mg/dL) 44 ATPIII inputs: Male/age 45 with total | | cholesterol 200-239, HDL 35-39, LDL 100-129 and Trig 200-499, | | with systolic BP 120-129 untreated for HTN, and smoker: 10-yr | | Hard CHD RISK 20%; High Risk with LDL goal <100 | |ATPIII inputs: Male/age 45 with total cholesterol 200-239, HDL 35-39, LDL 100-129 and Trig 200-499, with systolic BP 120-129 untreated for HTN, and smoker: 10-yr Hard CHD RISK 20%; Hi gh Risk with LDL goal <100 | + + + + + | Cervicalgia | 01/24/2009 | + + + | Bipolar I disorder, most recent episode (or current) depressed, | 11/01/2008 | | severe, specified as with psychotic behavior | | + + + | PTSD (post-traumatic stress disorder) | 11/01/2008 | + + + | Bipolar I disorder, most recent episode (or current) depressed, | 11/01/2008 | | severe, specified as with psychotic behavior | | + + + | Marijuana use | | + + + + + | Overview: 3X/day | + + + +---+ | LOVE Inhibitors - Daily Use | | + +---+ | Beta Blockers - Daily Use | | + +---+ | Incomplete right bundle branch block (RBBB) | | + +---+ + + | Overview: Normal sinus rhythm | | Incomplete right bundle branch block | + + + +---+ | Depression with anxiety | | + +---+ | AAA (abdominal aortic aneurysm) | | + +---+ + + | Overview: [facility] 11/2017:ABDOMEN and PELVIS: Left | | testis in the left inguinal ring. Vasculature: Scattered | | vascular calcifications. No abdominal aortic aneurysm. | + + Resolved Problems + + + + | Problem | Noted | Resolved | | | Date | Date | + + + + | AAA (abdominal aortic aneurysm) | 09/13/19 | | | | 19 | 0 | + + + + | Obstructive sleep apnea (adult) (pediatric) | 09/13/19 | | | | 19 | 0 | + + + + + + | Overview: CPAP at 8cm H2O pressure | | CPAP at 8cm H2O pressure | + + + + + + | Ileus | 11/01/19 | | | | 17 | 0 | + + + + | Colitis | 09/01/19 | | | | 17 | 0 | + + + + | HTN (hypertension) | 08/27/19 | | | | 17 | 0 | + + + + | Insomnia | 06/25/20 | | | | 16 | 0 | + + + + | Gastritis | 04/02/20 | | | | 16 | 0 | + + + + | Sepsis | 04/02/20 | | | | 16 | 0 | + + + + | Constipation, chronic | 05/16/20 | | | | 15 | 0 | + + + + | Acute chest pain | 05/06/20 | | | | 15 | 0 | + + + + | COPD (chronic obstructive pulmonary disease) | 12/12/19 | | | | 15 | 0 | + + + + | Chronic pain | 11/30/19 | | | | 15 | 0 | + + + + + + | Overview: 10/24/14- narcotic agreement and ameritox done. | | 10/24/14- narcotic agreement and ameritox done. | | 10/24/14- narcotic agreement and ameritox done. | + + + + + + | Left shoulder pain | 10/30/19 | | | | 15 | 0 | + + + + + + | Overview: Steel plate C-4 to C-6 | + + + + + + | Abnormal colonoscopy | 03/15/20 | | | | 14 | 0 | + + + + + + | Overview: Dr. Cerna, Multiple colon polyps(5) and moderate | | internal hemorrhoids | + + + + + + | Asthma | 02/08/20 | | | | 14 | 0 | + + + + | Low back pain | 01/23/20 | | | | 11 | 0 | + + + + | Hyperlipidemia | 11/19/19 | | | | 11 | 0 | + + + + + + | Overview: Overview: Overview: Lab Review: 11/17/2010 | | TRIGLYCERIDES (mg/dL) 220 11/17/2010 CHOLESTEROL, TOTAL (mg/dL) | | 208 11/17/2010 HDL CHOLESTEROL (mg/dL) 36 11/17/2010 LDL | | CHOLESTEROL CALC (mg/dL) 128 11/17/2010 LDL/HDL RATIO (ratio | | units) 3.6 11/17/2010 VLDL CHOLESTEROL OSMIN (mg/dL) 44 ATPIII | | inputs: Male/age 45 with total cholesterol 200-239, HDL 35-39, | | LDL 100-129 and Trig 200-499, with systolic BP 120-129 untreated | | for HTN, and smoker: 10-yr Hard CHD RISK 20%; High Risk with LDL | | goal <100 | | | |ATPIII inputs: Male/age 45 with total cholesterol 200-239, HDL 35-39, LDL 100-129 and Trig 200-499, with systolic BP 120-129 untreated for HTN, and smoker: 10-yr Hard CHD RISK 20%; Hi gh Risk with | | LDL goal <100 | + + + + + + | Screening for hyperlipidemia | 11/19/19 | | | | 11 | 0 | + + + + + + | Overview: Lab Review: 11/17/2010 TRIGLYCERIDES (mg/dL) 220 | | 11/17/2010 CHOLESTEROL, TOTAL (mg/dL) 208 11/17/2010 HDL | | CHOLESTEROL (mg/dL) 36 11/17/2010 LDL CHOLESTEROL CALC (mg/dL) 128 | | 11/17/2010 LDL/HDL RATIO (ratio units) 3.6 11/17/2010 VLDL | | CHOLESTEROL OSMIN (mg/dL) 44 ATPIII inputs: Male/age 45 with total | | cholesterol 200-239, HDL 35-39, LDL 100-129 and Trig 200-499, | | with systolic BP 120-129 untreated for HTN, and smoker: 10-yr | | Hard CHD RISK 20%; High Risk with LDL goal <100 | |ATPIII inputs: Male/age 45 with total cholesterol 200-239, HDL 35-39, LDL 100-129 and Trig 200-499, with systolic BP 120-129 untreated for HTN, and smoker: 10-yr Hard CHD RISK 20%; Hi gh Risk with LDL goal <100 | + + + + + + | Hyperlipidemia | 11/19/19 | | | | 11 | 0 | + + + + + + | Overview: Lab Review: 11/17/2010 TRIGLYCERIDES (mg/dL) 220 | | 11/17/2010 CHOLESTEROL, TOTAL (mg/dL) 208 11/17/2010 HDL | | CHOLESTEROL (mg/dL) 36 11/17/2010 LDL CHOLESTEROL CALC (mg/dL) 128 | | 11/17/2010 LDL/HDL RATIO (ratio units) 3.6 11/17/2010 VLDL | | CHOLESTEROL OSMIN (mg/dL) 44 ATPIII inputs: Male/age 45 with total | | cholesterol 200-239, HDL 35-39, LDL 100-129 and Trig 200-499, | | with systolic BP 120-129 untreated for HTN, and smoker: 10-yr | | Hard CHD RISK 20%; High Risk with LDL goal <100 | |ATPIII inputs: Male/age 45 with total cholesterol 200-239, HDL 35-39, LDL 100-129 and Trig 200-499, with systolic BP 120-129 untreated for HTN, and smoker: 10-yr Hard CHD RISK 20%; Hi gh Risk with LDL goal <100 | + + + + + + | Lung nodule | 09/02/19 | | | | 11 | 0 | + + + + + + | Overview: CT chest [facility] 02/23/11: "IMPRESSION: There are | | multiple bilateral pulmonary nodules. They are uncalcified and | | they range in size from a few millimeters to 0.7 cm. They are | | most likely sequela of previous granulomatous disease. A repeat | | noncontrast CT scan of the chest in three months is | | recommended."05/24/11 CT [facility]: IMPRESSION: Stable bilateral | | pulmonary parenchymal nodules. An additional followup in one year | | is suggested. Dictated By: FABBY ELKINS MD | + + + + + + | Nausea & vomiting | 07/15/20 | | | | 10 | 0 | + + + + | Pancreatitis | 11/28/19 | | | | 10 | 0 | + + + + | Brachial neuritis or radiculitis | 11/02/19 | | | | 09 | 0 | + + + + | HTN (hypertension) | | | | | | 0 | + + + + Encounters +--------+ + + + + | Date | Type | Specialty | Care Team | Description | +--------+ + + + + | 02/24/ | Telephone | Neurosurgery | Girish Cleveland | Cancel Surgery | | 2019 | | | MD Carissa | | +--------+ + + + + | 02/24/ | Documentati | Neurosurgery | Girish Cleveland | Pain Management | | 2019 | on | | MD Carissa | (preop and DC MEDD | | | | | | (DOS BODY FINISHER)) | +--------+ + + + + | 02/24/ | Hospital | | Girish Cleveland | | | 2019 | Encounter | | MD Carissa | | +--------+ + + + + | 02/20/ | Clinical | Immediate Care | Girish Salter | Preop testing | | 2019 | Support | | VIDAL Machuca | | +--------+ + + + + | 02/20/ | Telephone | Neurosurgery | Girish Cleveland | Procedure | | 2019 | | | MD Carissa | (Confirmation call | | | | | | for 02/25/20 Sx) | +--------+ + + + + | 02/14/ | Telephone | Case Management | Ashely Sanchez, | Case Management (pre | | 2019 | | | RN | discharge planning) | +--------+ + + + + | 01/31/ | Preadmit | Pre-Admission | Girish Cleveland | Essential | | 2019 | Visit | Testing | MD Carissa | hypertension; | | | | | | Chronic | | | | | | pancreatitis, | | | | | | unspecified | | | | | | pancreatitis type | | | | | | ([facility]); | | | | | | Hyperlipidemia, | | | | | | mixed; | | | | | | Gastroesophageal | | | | | | reflux disease, | | | | | | esophagitis presence | | | | | | not specified | +--------+ + + + + | 01/31/ | Office | Neurosurgery | Girish Cleveland | Cervical spinal | | 2019 | Visit | | MD Carissa | stenosis (Primary | | | | | | Dx); Adjacent | | | | | | segment disease with | | | | | | spinal stenosis | +--------+ + + + + | 01/30/ | Documentati | Neurosurgery | Girish Cleveland | Pain Management | | 2019 | on | | MD Carissa | (preop BODY FINISHER) | +--------+ + + + + | 01/09/ | Orders Only | Neurosurgery | Girish Cleveland | Preop testing | | 2019 | | | MD Carissa | (Primary Dx) | +--------+ + + + + from Last 3 Months Immunizations + + + + | Name | Administration Dates | Next Due | + + + + | INFLUENZA PF 4Y OR | 09/25/2019 | | | >,QUAD DERIVED FROM | | | | TISS-CULT | | | + + + + | INFLUENZA PF | 05/26/2017, 05/30/2015 | | | QUAD(PED/ADOL/ADULT) | | | | ,PSKT or VIAL | | | + + + + | INFLUENZA PF | 05/24/2018 | | | TRIVALENT(PED/ADOL/A | | | | DULT), PSKT | | | + + + + | INFLUENZA TRIV | 07/01/2016, 06/22/2016, 06/21/2014, | | | W/PRES(PED/ADOL/ADUL | 05/30/2013, 05/10/2012, 05/12/2011, | | | T),MULTIDOSE | 07/15/2010 | | + + + + | PNEUMOCOCCAL | 09/21/2018, 06/22/2016 | | | CONJUGATE 13-VALENT | | | | (PCV13) | | | + + + + | PNEUMOCOCCAL | 09/27/2019, 07/01/2016 | | | POLYSACCHARIDE | | | | 23-VALENT (PPSV23) | | | + + + + | TDAP, (ADOL/ADULT) | 11/01/2009 | | + + + + Family History + + +------+ + | Medical History | Relation | Name | Comments | + + +------+ + | Drug abuse | Brother | | | + + +------+ + | Coronary artery | Father | | with Stents | | disease | | | | + + +------+ + | Heart disease | Father | | | + + +------+ + | Kidney disease | Father | | Kidney Stones | + + +------+ + | Cancer | Maternal | | Testicular Cancer | | | Grandfath | | | | | er | | | + + +------+ + | Diabetes, NIDDM | Maternal | | | | | Grandmoth | | | | | er | | | + + +------+ + | Lung cancer | Maternal | | | | | Grandmoth | | | | | er | | | + + +------+ + | Coronary artery | Mother | | | | disease | | | | + + +------+ + | Diabetes, NIDDM | Mother | | | + + +------+ + | Heart disease | Mother | | | + + +------+ + | Lung cancer | Mother | | | + + +------+ + | Stomach cancer | Mother | | | + + +------+ + | Stroke | Mother | | | + + +------+ + | Ovarian cancer | Other | | | + + +------+ + | No known problems | Paternal | | | | | Grandfath | | | | | er | | | + + +------+ + | No known problems | Paternal | | | | | Grandmoth | | | | | er | | | + + +------+ + + +------+--------+ + | Relation | Name | Status | Comments | + +------+--------+ + | Brother | | | | + +------+--------+ + | Father | | | | + +------+--------+ + | Maternal Grandfather | | | | + +------+--------+ + | Maternal Grandmother | | | | + +------+--------+ + | Mother | | | | + +------+--------+ + | Other | | | | + +------+--------+ + | Paternal Grandfather | | | | + +------+--------+ + | Paternal Grandmother | | | | + +------+--------+ + Social History + + + +--------+ [...] on file | | + + + Last Filed Vital Signs + + + + + | Vital Sign | Reading | Time Taken | Comments | + + + + + | Blood Pressure | 100/60 | 02/01/2020 8:37 AM | | | | | PDT | | + + + + + | Pulse | 74 | 02/21/2020 8:14 AM | | | | | PDT | | + + + + + | Temperature | 37.3 C (99.1 F) | 02/21/2020 8:14 AM | | | | | PDT | | + + + + + | Respiratory Rate | 16 | 02/01/2020 8:37 AM | | | | | PDT | | + + + + + | Oxygen Saturation | 96% | 02/21/2020 8:14 AM | | | | | PDT | | + + + + + | Inhaled Oxygen | - | - | | | Concentration | | | | + + + + + | Weight | 80.8 kg (178 lb 2.1 | 02/01/2020 8:37 AM | | | | oz) | PDT | | + + + + + | Height | 170.2 cm (5' 7") | 02/01/2020 8:37 AM | | | | | PDT | | + + + + + | Body Mass Index | 27.9 | 02/01/2020 8:37 AM | | | | | PDT | | + + + + + Plan of Treatment + + + + + | Health Maintenance | Due Date | Last | Comments | | | | Done | | + + + + + | Hepatitis C | | | | | Screening | 4 | | | + + + + + | Vaccine: Zoster (1 | | | | | of 2) | 4 | | | + + + + + | Adult Annual | | | | | Wellness Visit | 9 | | | + + + + + | Vaccine: | | 11/02/19 | | | Dtap/Tdap/Td (2 - | 0 | 10 | | | Td) | | | | + + + + + | Vaccine: Influenza | | 09/25/19 | | | (#1) | 0 | 20, | | | | | 05/24/20 | | | | | 18, | | | | | 05/26/20 | | | | | 17, | | | | | Addition | | | | | al | | | | | history | | | | | exists | | + + + + + | Colorectal Cancer | | 03/15/20 | | | Screening | 4 | 14 | | | (Colonoscopy) | | | | + + + + + | Vaccine: | Completed | 09/27/19 | | | Pneumococcal 19-64 | | 20, | | | | | 09/21/19 | | | | | 19, | | | | | 07/01/20 | | | | | 16, | | | | | Addition | | | | | al | | | | | history | | | | | exists | | + + + + + Procedures + +--------+ + + + | Procedure Name | Priori | Date/Time | Associated Diagnosis | Comments | | | ty | | | | + +--------+ + + + | CORONAVIRUS | Routin | 02/21/2020 | Preop testing | Results for this | | (COVID-19) NAAT | e | 8:13 AM | | procedure are in the | | | | PDT | | results section. | + +--------+ + + + | BASIC METABOLIC | Routin | 02/01/2020 | Essential | Results for this | | PANEL | e | 9:41 AM | hypertension | procedure are in the | | | | PDT | Chronic | results section. | | | | | pancreatitis, | | | | | | unspecified | | | | | | pancreatitis type | | | | | | (HCC) | | | | | | Hyperlipidemia, | | | | | | mixed | | | | | | Gastroesophageal | | | | | | reflux disease, | | | | | | esophagitis presence | | | | | | not specified | | + +--------+ + + + | CBC WITH | Routin | 02/01/2020 | Essential | Results for this | | DIFFERENTIAL | e | 9:41 AM | hypertension | procedure are in the | | | | PDT | Chronic | results section. | | | | | pancreatitis, | | | | | | unspecified | | | | | | pancreatitis type | | | | | | (HCC) | | | | | | Hyperlipidemia, | | | | | | mixed | | | | | | Gastroesophageal | | | | | | reflux disease, | | | | | | esophagitis presence | | | | | | not specified | | + +--------+ + + + | CULTURE, MRSA | Routin | 02/01/2020 | Essential | Results for this | | | e | 9:41 AM | hypertension | procedure are in the | | | | PDT | Chronic | results section. | | | | | pancreatitis, | | | | | | unspecified | | | | | | pancreatitis type | | | | | | (HCC) | | | | | | Hyperlipidemia, | | | | | | mixed | | | | | | Gastroesophageal | | | | | | reflux disease, | | | | | | esophagitis presence | | | | | | not specified | | + +--------+ + + + from Last 3 Months Results Coronavirus (COVID-19) NAAT (02/21/2020 8:13 AM PDT) + + + + + + | Component | Value | Ref Range | Performed | Pathologist | | | | | At | Signature | + + + + + + | SARS-CoV-2, | Not DetectedComment: | Not Detected | REFERENCE | | | NAAT | This test was developed | | LAB [facility] | | | (COVID-19) | and its performance | | - BKR | | | | characteristics | | | | | | determinedby [facility] | | | | | | Laboratories. This test | | | | | | has not been FDA cleared | | | | | | orapproved. This test | | | | | | has been authorized by | | | | | | FDA under an Emergency | | | | | | UseAuthorization (EUA). | | | | | | This test is only | | | | | | authorized for the | | | | | | duration oftime the | | | | | | declaration that | | | | | | circumstances exist | | | | | | justifying | | | | | | theauthorization of the | | | | | | emergency use of in | | | | | | vitro diagnostic tests | | | | | | fordetection of | | | | | | SARS-CoV-2 virus and/or | | | | | | diagnosis of COVID-19 | | | | | | infectionunder section | | | | | | 564(b)(1) of the Act, 21 | | | | | | U.S.C. 360bbb-3(b)(1), | | | | | | unlessthe authorization | | | | | | is terminated or revoked | | | | | | sooner.When diagnostic | | | | | | testing is negative, the | | | | | | possibility of a | | | | | | falsenegative result | | | | | | should be considered in | | | | | | the context of a | | | | | | patient'srecent | | | | | | exposures and the | | | | | | presence of clinical | | | | | | signs and | | | | | | symptomsconsistent with | | | | | | COVID-19. An individual | | | | | | without symptoms of | | | | | | COVID-19and who is not | | | | | | shedding SARS-CoV-2 | | | | | | virus would expect to | | | | | | have anegative (not | | | | | | detected) result in this | | | | | | assay. | | | | + + + + + + + + | Specimen | + + | Tissue - Specimen | | from throat | | (specimen) | + + + + + | Narrative | Performed At | + + + | Performed at: 01 - [facility] [address] [facility] ([place]), [place] | REFERENCE LAB | | [phone] Surgery Specialist: Dionicio Gibbs MD, Phone: [phone] | [facility] | + + + + + + + + | Performing | Address | City/State/Zipcode | Phone Number | | Organization | | | | + + + + + | [facility] | [address] | [place], [place] | [phone] | | [facility] | [place] | [address] | | + + + + + Culture, MRSA (02/01/2020 9:41 AM PDT) + + + + + + | Component | Value | Ref Range | Performed | Pathologist | | | | | At | Signature | + + + + + + | Culture | Negative for MRSA by | | [facility] | | | | chromogenic agar method. | | [facility] | | | | | | [facility]ICAL | | | | | | CENTER - | | | | | | LABORATORY | | + + + + + + + + | Specimen | + + | Tissue - Both | | anterior nares (body | | structure) | + + + + + + + | Performing | Address | City/State/Zipcode | Phone Number | | Organization | | | | + + + + + | [facility] | [address] | [place] | [phone] | | [facility] | | [address] | | | - LABORATORY | | | | + + + + + CBC with Differential (02/01/2020 9:41 AM PDT) + + + + + + | Component | Value | Ref Range | Performed | Pathologist | | | | | At | Signature | + + + + + + | White Blood | 10.2 | 4.0 - 11.0 K/uL | [facility] | | | Cells | | | [facility] | | | | | | MEDICAL | | | | | | CENTER - | | | | | | LABORATORY | | + + + + + + | Red Blood | 4.94 | 4.30 - 5.70 | [facility] | | | Cells | | M/uL | [facility] | | | | | | MEDICAL | | | | | | CENTER - | | | | | | LABORATORY | | + + + + + + | Hemoglobin | 14.7 | 13.5 - 18.0 | [facility] | | | | | g/dL | [facility] | | | | | | MEDICAL | | | | | | CENTER - | | | | | | LABORATORY | | + + + + + + | Hematocrit | 41.6 | 40.0 - 51.0 % | [facility] | | | | | | [facility] | | | | | | MEDICAL | | | | | | CENTER - | | | | | | LABORATORY | | + + + + + + | MCV | 84.2 | 83.0 - 101.0 fL | [facility] | | | | | | [facility] | | | | | | MEDICAL | | | | | | CENTER - | | | | | | LABORATORY | | + + + + + + | MCH | 29.8 | 28.0 - 35.0 pg | [facility] | | | | | | [facility] | | | | | | MEDICAL | | | | | | CENTER - | | | | | | LABORATORY | | + + + + + + | MCHC | 35.3 | 32.0 - 36.0 | [facility] | | | | | g/dL | [facility] | | | | | | MEDICAL | | | | | | CENTER - | | | | | | LABORATORY | | + + + + + + | RDW-CV | 13.7 | <15.0 % | [facility] | | | | | | [facility] | | | | | | MEDICAL | | | | | | CENTER - | | | | | | LABORATORY | | + + + + + + | RDW-SD | 42.1 | 35.1 - 46.3 fL | [facility] | | | | | | [facility] | | [facility] | | | [facility]ICAL | | | | | | CENTER - | | | | | | LABORATORY | | + + + + + + | Platelet | 245 | 140 - 440 K/uL | [facility] | | | Count | | | [facility] | | | | | | MEDICAL | | | | | | CENTER - | | | | | | LABORATORY | | + + + + + + | MPV | 9.1 | 6.5 - 12.4 fL | [facility] | | | | | | [facility] | | | | | | MEDICAL | | | | | | CENTER - | | | | | | LABORATORY | | + + + + + + | % | 59.5 | 45.0 - 82.0 % | [facility] | | | Neutrophils | | | [facility] | | | | | | MEDICAL | | | | | | CENTER - | | | | | | LABORATORY | | + + + + + + | % | 31.1 | 20.0 - 45.0 % | [facility] | | | Lymphocytes | | | [facility] | | | | | | MEDICAL | | | | | | CENTER - | | | | | | LABORATORY | | + + + + + + | % Monocytes | 6.9 | 4.0 - 12.0 % | [facility] | | | | | | [facility] | | | | | | [facility]ICAL | | | | | | CENTER - | | | | | | LABORATORY | | + + + + + + | % | 1.2 | 0.0 - 5.0 % | [facility] | | | Eosinophils | | | [facility] | | | | | | MEDICAL | | | | | | CENTER - | | | | | | LABORATORY | | + + + + + + | % Basophils | 0.8 | 0.0 - 1.0 % | [facility] | | | | | | [facility] | | | | | | MEDICAL | | | | | | CENTER - | | | | | | LABORATORY | | + + + + + + | % Immature | 0.5 (H)Comment: | 0.0 - 0.4 % | [facility] | | | Granulocyte | Preliminary studies have | | [facility] | | | s | indicated the IG% | | MEDICAL | | | | and/or IG# show promise | | CENTER - | | | | as an early indicator | | LABORATORY | | | | for infection. | | | | + + + + + + | Absolute | 6.06 | 1.80 - 8.50 | [facility] | | | Neutrophils | | K/uL | [facility] | | | | | | MEDICAL | | | | | | CENTER - | | | | | | LABORATORY | | + + + + + + | Absolute | 3.17 | 0.60 - 3.20 | [facility] | | | Lymphocytes | | K/uL | [facility] | | | | | | MEDICAL | | | | | | CENTER - | | | | | | LABORATORY | | + + + + + + | Absolute | 0.70 | 0.00 - 1.00 | [facility] | | | Monocytes | | K/uL | [facility] | | | | | | MEDICAL | | | | | | CENTER - | | | | | | LABORATORY | | + + + + + + | Absolute | 0.12 | 0.00 - 0.40 | [facility] | | | Eosinophils | | K/uL | [facility] | | | | | | MEDICAL | | | | | | CENTER - | | | | | | LABORATORY | | + + + + + + | Absolute | 0.08 | 0.00 - 0.10 | [facility] | | | Basophils | | K/uL | [facility] | | | | | | MEDICAL | | | | | | CENTER - | | | | | | LABORATORY | | + + + + + + | Absolute | 0.05 (H) | 0.00 - 0.03 | [facility] | | | Immature | | K/uL | [facility] | | | Granulocyte | | | MEDICAL | | | s | | | CENTER - | | | | | | LABORATORY | | + + + + + + | % nRBC | 0 | 0 - 2 per 100 | [facility] | | | | | WBCs | [facility] | | | | | | MEDICAL | | | | | | CENTER - | | | | | | LABORATORY | | + + + + + + | Absolute | 0.00 | 0.00 - 0.01 | [facility] | | | nRBC | | K/uL | [facility] | | | | | | MEDICAL | | | | | | CENTER - | | | | | | LABORATORY | | + + + + + + + + | Specimen | + + | Blood | + + + + + + + | Performing | Address | City/State/Zipcode | Phone Number | | Organization | | | | + + + + + | [facility] | [address] | [place] | [phone] | | [facility] | | [address] | | | - LABORATORY | | | | + + + + + Basic Metabolic Panel (02/01/2020 9:41 AM PDT) + + + + + + | Component | Value | Ref Range | Performed | Pathologist | | | | | At | Signature | + + + + + + | Na | 141 | 136 - 145 | [facility] | | | | | mmol/L | [facility] | | | | | | MEDICAL | | | | | | CENTER - | | | | | | LABORATORY | | + + + + + + | K | 4.1 | 3.4 - 5.1 | [facility] | | | | | mmol/L | [facility] | | | | | | MEDICAL | | | | | | CENTER - | | | | | | LABORATORY | | + + + + + + | Cl | 112 (H) | 98 - 107 mmol/L | [facility] | | | | | | [facility] | | | | | | MEDICAL | | | | | | CENTER - | | | | | | LABORATORY | | + + + + + + | CO2 | 24 | 20 - 31 mmol/L | [facility] | | | | | | [facility] | | | | | | MEDICAL | | | | | | CENTER - | | | | | | LABORATORY | | + + + + + + | Anion Gap | 5 | 3 - 16 mmol/L | [facility] | | | | | | [facility] | | | | | | MEDICAL | | | | | | CENTER - | | | | | | LABORATORY | | + + + + + + | Glucose | 98 | 60 - 106 mg/dL | [facility] | | | | | | [facility] | | | | | | MEDICAL | | | | | | CENTER - | | | | | | LABORATORY | | + + + + + + | BUN | 12 | 9 - 23 mg/dL | [facility] | | | | | | [facility] | | | | | | MEDICAL | | | | | | CENTER - | | | | | | LABORATORY | | + + + + + + | Creatinine | 0.83 | 0.70 - 1.30 | [facility] | | | | | mg/dL | [facility] | | | | | | MEDICAL | | | | | | CENTER - | | | | | | LABORATORY | | + + + + + + | eGFR if not | >60Comment: GLOMERULAR | >=60 | [facility] | | | | FILTRATION | mL/min/1.73m2 | [facility] | | | FILIPINO | RATE,ESTIMATED | | MEDICAL | | | | mL/min/1.88e5Qduh than | | CENTER - | | | | 60 Chronic kidney | | LABORATORY | | | | disease,if found over a | | | | | | 3-month period.Less than | | | | | | 15 Kidney failureFor | | | | | | | | | | | | Americans,multiply the | | | | | | calculated GFR by 1.21. | | | | | | | | | | + + + + + + | Calcium | 9.3 | 8.7 - 10.4 | [facility] | | | | | mg/dL | [facility] | | | | | | MEDICAL | | | | | | CENTER - | | | | | | LABORATORY | | + + + + + + | BUN/Creatin | 14.5 | | [facility] | | | ine Ratio | | | [facility] | | | | | | MEDICAL | | | | | | CENTER - | | | | | | LABORATORY | | + + + + + + + + | Specimen | + + | Blood | + + + + + + + | Performing | Address | City/State/Zipcode | Phone Number | | Organization | | | | + + + + + | [facility] | [address] | [place] | [phone] | | [facility] | | [address] | | | - LABORATORY | | | | + + + + + from Last 3 Months Additional Health Concerns + + + + + | Infection | Onset Date | Last Indicated | Resolved Time | + + + + + | Methicillin-resistan | 10/11/2019 | 10/11/2019 | | | t Staphylococcus | | | | | aureus | | | | + + + + + Insurance + +--------+ +--------+ +---------+--------+ | Payer | Benefi | Subscriber | Effect | Phone | Address | Type | | | t Plan | ID | mark | | | | | | / | | Dates | | | | | | Group | | | | | | + +--------+ +--------+ +---------+--------+ | MEDICARE | MEDICA | [id number] | 11/21/19 | [phone] | | Medica | | | RE | | 02-Pre | 5 | | re | | | PART A | | sent | | | | | | AND B | | | | | | + +--------+ +--------+ +---------+--------+ | MEDICARE | MEDICA | [id number] | 11/21/19 | [phone] | | Medica | | | RE | | 02-Pre | 5 | | re | | | PART A | | sent | | | | | | AND B | | | | | | + +--------+ +--------+ +---------+--------+ | [employer] | MODA | [id number] | 08/23/19 | [phone] | | Medica | | MEDICAID HMO | HEALTH | | 20-Pre | 1 | | id | | | MDCD | | sent | | | | | | [place]MO [place] | | | | | | + +--------+ +--------+ +---------+--------+ | [employer] | MODA | [id number] | 08/22/19 | [phone] | | Medica | | MEDICAID HMO | HEALTH | | 19-Pre | 1 | | id | | | MDCD | | sent | | | | | | [place]MO [place] | | | | | | + +--------+ +--------+ +---------+--------+ + +--------+ +--------+ + + | Guarantor Name | Accoun | Relation to | Date | Phone | Billing Address | | | t Type | Patient | of | | | | | | | | | | + +--------+ +--------+ + + | Srini Johnson | Person | Self [birth year] | [address] | | | al/Fam | | 1964 | [phone] | [address] [place], | | | [place] | | | [address] (Home) | [place] [address] | + +--------+ +--------+ + + | Srini Johnson | Person | Self | [birth year] | [address] | | | al/Fam | | 1965 | [phone] | [address] [place], | | | [place] | | | [address] (Home) | [place] [address] | + +--------+ +--------+ + + Advance Directives + + + + + | Type | Date Recorded | Patient | Explanation | | | | Health Safety Instructor | | + + + + + | Power of | | | | | Security Assurance Analyst | | | | + + + + + | Advance | | | | | Directive | | | | + + + + +
--- OUTSIDE RECORDS SUMMARY | ~2020-03-03 | XMS | Encounter Summary ---
Demographics + + + | Address | [address] | | | [place] [address] | + + + | Home Phone | | + + + | Preferred Language | Unknown | + + + | Marital Status | Legally | + + + | Presybeterian Affiliation | 1013 | + + + | Race | Unknown | + + + | Ethnic Group | Unknown | + + + Author + + + | Author | [facility] | | | and [place] | + + + | Organization | [facility] | | | [...] Team Providers + +------+ + | Care Ceramic Tiler Name | Role | Phone | + [...] | | [place] | [place] [address] | | | | | [address] | | | | | | [phone] | | | +--------+ + + + [...]
--- OUTSIDE RECORDS SUMMARY | ~2020-03-03 | XMS | Encounter Summary ---
Demographics + + + | Address | [address] | | | [place] [address] | + + + | Home Phone | | + + + | Preferred Language | Unknown | + + + | Marital Status | Legally | + + + | Christian Affiliation | 1013 | + + + | Race | Unknown | + + + | Ethnic Group | Unknown | + + + Author + + + | Author | [facility] | | | and [place] | + + + | Organization | [facility] | | | [...] Team Providers + +------+ + | Care Marquetry Worker Name | Role | Phone | + +------+ + | Tate Hoff | PCP | | + +------+ + Reason for Visit Auth/Cert +--------+--------+ + + + + | Status | Reason | Specialty | Diagnoses / | Referred By | Referred To | | | | | Procedures | Contact | Contact | +--------+--------+ + + + + | | | | Diagnoses | | Megha, | | | | | Adjacent | | Girish Ferrer MD | | | | | segment | | [address] | | | | | disease with | | [address] | | | | | spinal | | [address] [place] | | | | | stenosis | | [place], [place] | | | | | Cervical | | [address] Phone: | | | | | myelopathy | | [phone] | | | | | (HCC) | | Fax: | | | | | Procedures | | [phone] | | | | | [place] ALLOGRAFT | | | | | | | FOR SPINE | | | | | | | SURGERY ONLY | | | | | | | STRUCTURAL | | | | | | | [place] | | | | | | | ARTHRODESIS | | | | | | | ANT | | | | | | | INTERBODY | | | | | | | INC | | | | | | | DISCECTOMY, | | | | | | | CERVICAL | | | | | | | BELOW C2 [place] | | | | | | | ARTHRODESIS | | | | | | | ANT | | | | | | | INTERBODY | | | | | | | INC | | | | | | | DISCECTOMY, | | | | | | | CERVICAL | | | | | | | BELOW C2 | | | | | | | EACH ADDL | | | | | | | ANTERIOR | | | | | | | INSTRUMENTAT | | | | | | | ION 4-7 | | | | | | | VERTEBRAL | | | | | | | SEGMENTS [place] | | | | | | | REMOVE | | | | | | | SPINE FIX | | | | | | | DEV,ANTERIOR | | | | | | | Anterior | | | | | | | Cervical | | | | | | | Discectomy | | | | | | | Fusion at | | | | | | | C3-C4, C6-C7 | | | | | | | with | | | | | | | revision at | | | | | | | C4-C5, C5-C6 | | | | | | | | | | +--------+--------+ + + + + Encounter Details +--------+ + + + + | Date | Type | Department | Care Team | Description | +--------+ + + + + | 02/24/ | Hospital | [facility] | Girish [place] | | | 2020 | Encounter | MED [facility] INTRA OP | MD Carissa [address] | | | | | [address] | [facility] [address] | | | | | [place] | [place], [place] [address] | | | | | [address] | [phone] | | | | | [phone] | | | +--------+ + + + [...] + | Diagnosis | + + | Adjacent segment disease with spinal stenosis | + + | Cervical myelopathy (HCC) Cervical spondylosis with myelopathy | + + | COPD (chronic obstructive pulmonary disease) (HCC) Chronic airway obstruction, not | | elsewhere classified | + + | HTN (hypertension) Unspecified essential hypertension | + + | GERD (gastroesophageal reflux disease) Esophageal reflux | + + | Hyperlipidemia, mixed Mixed hyperlipidemia | + + | Obstructive sleep apnea on CPAP Obstructive sleep apnea (adult) (pediatric) | + + | Incomplete right bundle branch block (RBBB) | + + | PTSD (post-traumatic stress disorder) Posttraumatic stress disorder | + + | Smoker Tobacco use disorder | + + documented in this encounter Admitting Diagnoses + + | Diagnosis | + + | Adjacent segment disease with spinal stenosis | + + | Cervical myelopathy (HCC) Cervical spondylosis with myelopathy | + + documented in this encounter Administered Medications + +--------+---------+------+------+------+ | Medication Order | MAR | Action | Dose | Rate | Site | | | Action | Date | | | | + +--------+---------+------+------+------+ + +---+ | vancomycin 1 g in sodium | | | chloride 0.9% 250 mL IVPB 1 g, | | | Intravenous, Administer over 90 | | | Minutes, Prior to Incision, | | | Starting Tue02/25/20 at 0508, For | | | 1 dose, Activate system and mix | | | before use., Pre-op, Indications: | | | Surgical Prophylaxis | | + +---+ | | | + +---+ documented in this encounter Additional Health Concerns + [...]
--- OUTSIDE RECORDS SUMMARY | ~2020-03-03 | XMS | Encounter Summary ---
Demographics + + + | Address | [address] | | | [place] [address] | + + + | Home Phone | | + + + | Preferred Language | Unknown | + + + | Marital Status | Legally | + + + | Hindu Affiliation | 1013 | + + + | Race | Unknown | + + + | Ethnic Group | Unknown | + + + Author + + + | Author | [facility] | | | and [place] | + + + | Organization | [facility] | | | [...] Team Providers + +------+ + | Care Rn Surgical Pcu Name | Role | Phone | + +------+ + | Tate Hoff | PCP | | + +------+ + Reason for Visit + + + | Reason | Comments | + + + | Neck Pain | | + + + | New Patient | | + + + Evaluate & Treat (Urgent) + +--------+ + + + + | Status | Reason | Specialty | Diagnoses / | Referred By | Referred To | | | | | Procedures | Contact | Contact | + +--------+ + + + + | Authorized | | Neurosurgery | Diagnoses | Luis Eduardo, | [facility] | | | | | Other | Tate Jeffery | Neurosurgery | | | | | cervical | [address] | [address] | | | | | disc | [address] | [address] | | | | | degeneration | [place], | [place], | | | | | , | [place] [address] | [place] [address] | | | | | unspecified | Phone: | Phone: | | | | | cervical | [phone] | [phone] | | | | | region | Fax: | Fax: | | | | | | [phone] | [phone] | + +--------+ + + + + Encounter Details +--------+---------+ + + + | Date | Type | Department | Care Team | Description | +--------+---------+ + + + | 08/29/ | Office | [facility] | Girish Cleveland | Adjacent segment | | 2019 | Visit | NEUROSURGERY [address] | [address], [address] | disease with spinal | | | | [address] | [address] [place] | stenosis (Primary | | | | [place], [place] | [place] [address] | Dx); Cervical | | | | [address] | [phone] | myelopathy (HCC) | | | | [phone] | | | +--------+---------+ + + + [...] + + + | Blood Pressure | 124/58 | 08/29/2019 2:25 PM | | | | | PST | | + + + + + | Pulse | 71 | 08/29/2019 2:25 PM | | | | | PST | | + + + + + | Temperature | - | - | | + + + + + | Respiratory Rate | 19 | 08/29/2019 2:25 PM | | | | | PST | | + + + + + | Oxygen Saturation | 97% | 08/29/2019 2:25 PM | | | | | PST | | + + + + + | Inhaled Oxygen | - | - | | | Concentration | | | | + + + + + | Weight | 81.3 kg (179 lb 3.7 | 08/29/2019 2:25 PM | | | | oz) | PST | | + + + + + | Height | 170.2 cm (5' 7") | 08/29/2019 2:25 PM | | | | | PST | | + + + + + | Body Mass Index | 28.07 | 08/29/2019 2:25 PM | | | | | PST | | + + + + + documented in this encounter Patient Instructions Patient Instructions Francis FelicityRosalio MA - 08/29/2019 2:15 PM PST - Please stop smoking all nicotine products this includes vaping, patches, nicotine gum, an d cigarettes. You must be done with nicotine 100% by the day we go to surgery. - Surgery was discussed today as well as the risks. Surgery will be a Revision at C3-4, C6- 7. We will submit for authorization and contact you once ready to schedule. - Please contact your primary care physician and schedule a follow up because you need [facility] physician clearance prior to surgery. You may also need cardiac clearance as well s o please contact them and schedule an appointment. - Let pain be your guide. If you are doing an activity that starts causing you pain, back off and ease back into it slowly. We don't want you taking any risks that do not need to be taken. - Talk to you primary care physician regarding pain control until you have surgery. We will call you 2 business days prior to your scheduled surgery to let you know when to ch mariel into [facility] on the day of surgery. If [...] Surgery booklet that is being provided today. Libiaa l resources to prepare you for what to expect include attending Spine Class or viewing the v ideo version of Spine Class on YouTube Preparing for Neck Surgery (Bulgarian) https://www.GlobalMotion.com/watch?v=[email or web address] Here are some resources that may be helpful for managing postoperative pain: Persistent Pain Toolkit for Patients and Families: Includes education on pain in general (multiple languages) and education on pain after inju ry or surgery. Relaxation videos practice techniques to quiet pain. https://[place].somers.org/our-services/p/wsifechqnf-qwkriozrim-ohfj/hmxuzecwkq-tjfo-eca lkit/dvhzweq-vmg-ufsxttvj-toolkit/nbchra-oolm-pratwspxb/ Surgical Pain Handout: https://www.fauzia.pa.gov/Portals/1/Documents/9220/347644-ZzicyzaZcrkwamtvmrc-ZazubvxcElai.pdf If you have any questions or concerns, please call the neurosurgery clinic o r send us a Inveni Chart message. documented in this encounter Progress Notes Girish Cleveland MD - 08/29/2019 2:15 PM PST Girish Cleveland MD [address] [place] [address], [address] [place] [address] FAX: [phone] NEUROSURGERY HISTORY AND PHYSICAL EXAMINATION CHIEF COMPLAINT: Chief Complaint Patient presents with Neck Pain New Patient HISTORY OF PRESENT ILLNESS: Srini Johnson is a 54 y.o. male with the complaint of neck sy mptoms that began several years ago. He has a history of a Cervical fusion from C4-6 about 1 1 years ago. The neck symptoms have been [...] He complains of having difficulties getting comfortable. His spouse normally h as another person that pushes her in her wheel chair but today he had too. His symptoms improve with rest and worsens with rest. He does not report any change in bowel or bladder function recently. He has done any physical therapy because he was not able to make it to the appointments. Brenda pryor is not currently taking pain medications but does take Tizanadine. He states he has quit u sing cigarettes but now only vapes nicotine. He has PTSD and is bipolar. PAST MEDICAL HISTORY: Past Medical History: Diagnosis Date AAA (abdominal aortic aneurysm) (HCC) Brachial neuritis or radiculitis Bradycardia Cannabis abuse, in remission Chronic pancreatitis (HCC) Cyclic vomiting syndrome Depression with anxiety GERD (gastroesophageal reflux disease) Hypertension Iron metabolism disorder Nicotine dependence, cigarettes, uncomplicated Other cervical disc degeneration, unspecified cervical region Other intervertebral disc degeneration, lumbar region Panic disorder without agoraphobia Perirectal abscess Photophobia Recurrent biliary colic PAST SURGICAL HISTORY: Past Surgical History: Procedure Laterality Date CERVICAL DISC ARTHROPLASTY Anterior 09/13/2006 Dr. Crow @ [facility] C4-C5 and C5-C6 anterior cervical discectomy and fusion with anterior farida te from C4-C6. CHOLECYSTECTOMY, LAPAROSCOPIC 05/12/2009 Dr. [email or web address]: Cholecystectomy, lap with intraoperative cholangiograms EGD AND COLONOSCOPY 03/15/2014 Dr. Cerna, moderate hiatal hernia, patchy antral and body gastritis GASTRIC FUNDOPLICATION HEMORRHOID SURGERY 08/22/2005 HIATAL HERNIA REPAIR 08/22/2004 RECTAL SURGERY 01/20/2014 Dr. Faria; INCISION OF RECTAL ABSCESS TONSILLECTOMY AND ADENOIDECTOMY 08/22/1969 UPPER GASTROINTESTINAL ENDOSCOPY 10/30/2003 Dr. Castillo @[facility] POSTOPERATIVE DIAGNOSIS: HIATAL HERNIA AND DISTAL ESOPHAGITIS CURRENT MEDICATIONS: Current Outpatient Medications Medication Sig Dispense Refill Ticcldt-Zpjuua-Sycttxtr (PANCRELIPASE 89988 PO) Take 1 capsule by mouth. grtllfl-danvvm-owvrvipt (ZENPEP) 84,000-20,000-63,000 units per capsule Take 1 [...] the lungs 2 (two) caro es daily. qoydzq-sbbimfsk-eeqowmi (PANCREAZE 21) 21,000-54,700-83,900 units per capsule Take [...] mg by mouth 2 times daily. No current facility-administered medications for this visit. ALLERGIES: Allergies Allergen Reactions Cat Hair Extract Anaphylaxis Swelling in eyes, nose, throat, body, Difficulty breathing. Cyclobenzaprine Anaphylaxis and Shortness Of Breath Penicillins Anaphylaxis Baclofen Other (See Comments), Rash and Swelling Almost had a stroke Diclofenac Other (See Comments) Muscles and everything tense up Patch. Patient reports going into shock Pollen Extract Unknown Sulfamethoxazole-Trimethoprim Headache SOCIAL HISTORY: The patient reports that he quit smoking today. His smoking use included cigarettes. He dcaosta s a 20.00 pack-year smoking history. He has never used smokeless tobacco. He reports previou s alcohol use. He reports previous drug use. Drug: Marijuana. FAMILY HISTORY: Family [...] has ins omnia. PHYSICAL EXAMINATION: Blood pressure 124/58, pulse 71, resp. rate 19, height 1.702 m (5' 7"), weight 81.3 kg (179 lb 3.7 oz), SpO2 97 %. Body mass index is 28.07 kg/m. GENERAL: Srini Johnson is in no [...] has no apparent deficits with short or shelter memory. CRANIAL NERVES: II: Acuity is intact. [...] 5 Interossei 5 5 APB 5 5 Vehicle Body Maker Strength 5 5 * Discomfort in the [...] fusion. NEUROSURGICAL DIAGNOSES: Encounter Diagnoses Name Primary? Adjacent segment disease with spinal stenosis Yes Cervical myelopathy (HCC) GENERAL DIAGNOSES: Past Medical History: Diagnosis Date AAA (abdominal aortic aneurysm) (HCC) Brachial neuritis or radiculitis Bradycardia Cannabis abuse, in remission Chronic pancreatitis (HCC) Cyclic vomiting syndrome Depression with anxiety GERD (gastroesophageal reflux disease) Hypertension Iron metabolism disorder Nicotine dependence, cigarettes, uncomplicated Other cervical disc degeneration, unspecified cervical region Other intervertebral disc degeneration, lumbar region Panic disorder without agoraphobia Perirectal abscess Photophobia Recurrent biliary colic PLAN: Srini Johnson presented today ,and greatly appreciate [...] stop 100% before the day of surgery. In discussing surgical options, we discussed in detail the patient's options for a Revision fusion at C3-4, C6-7. The patient would like to be considered for surgery as discussed and would like us to seek authorization and clearance for the operation. I would like this patient to follow up with neurosurgery PA for pre op. I would like the patient to get clearance from his PCP, Tate Hoff, prior to surgical intervention. He also needs to follow up with his psychologist military personnel for surgical clearance. I, Girish Cleveland MD, personally performed the services described in this documentatio n, as scribed by DAKOTA Perez in my presence, and it is both accurate and complete. Girish Cleveland MD 08/29/19 ELECTRONICALLY SIGNED BY: Girish Cleveland MD, 08/29/2019 3:12 PM documented in this encounter Plan of Treatment Not on filedocumented as of this encounter Visit Diagnoses + + | Diagnosis | + + | Adjacent segment disease with spinal stenosis - Primary | + + | Cervical myelopathy (HCC) Cervical spondylosis with myelopathy | + + documented in this encounter
--- OUTSIDE RECORDS SUMMARY | ~2020-03-03 | XMS | Encounter Summary ---
Demographics + + + | Address | [address] | | | [place] [address] | + + + | Home Phone [...] Author + + + | Author | [facility] | | | and [place] | + + + | Organization | [facility] | | | [...] Team Providers + +------+ + | Care Printer Slotter Operator Name | Role | Phone | + +------+ + | Tate Hoff | PCP | | + +------+ + Reason for Visit + + + | Reason | Comments | + + + | Screening For | | | Communicable Disease | | + + + Encounter Details +--------+ + + + + | Date | Type | Department | Care Team | Description | +--------+ + + + + | 02/20/ | Clinical | [facility] | Girish Salter | Preop testing | | 2020 | Support | CARE [address] | [address] | | | | | [place] | [address] [place] | | | | | [address] | [place] [address] | | | | | [phone] | [phone] | | | | | | | | +--------+ + + + [...] + + + | Blood Pressure | - | - | | + [...] + + + + | Weight | - | - | | + + + + + | Height | - | - | | + + + + + | Body Mass Index | - | - | | + + + + + documented in this encounter Progress Notes Tasha George RN - 02/21/2020 8:15 AM PDTPRE-PROCEDURE COVID TEST Affix Patient Label [] Photo ID Verified Patient Name:Srini Johnson Provider:[facility] URGENT NURSE :1965 Date:02/21/20 MyChart: Activated Symptom Screen: Are you experiencing any of the following symptoms? [] Cough: duration of cough? 0 days ? If symptoms or cough >10 days, send to for provider evaluation [] Shortness of breath ? Confer with provider or send in to UC if obviously having labored breathing [] Fever >100.4 [] Chills and/or repeated shaking with chills [] Sore Throat [] Body Aches or Muscle Pain [] Headache [] Chest Pain, warm hand transfer to RN inside UC (Room 1 for triage) [] Abdominal Pain [] Nausea [] Vomiting [] Diarrhea [] Change in Sense of Smell and/or Taste Testing Protocol: MA/RN Proceed to testing if ANY of the following conditions are present: DRIVE THRU SWAB SCREENING [x] Asymptomatic, regardless of age, pre-procedure screening only [] Asymptomatic - testing requested by authorized [facility] personnel, [facility] Infection Prevention Nurse or Caregiver Health [] Asymptomatic, regardless of age, pre-travel screening only [] Age 15-70 with any symptoms indicated in MA screening [] Age >70 with Temp <100.4 F, O2 sat >95%, Pulse <100 bpm, without cough, Hx of fever, ch ills, chest pain, SOB, abdominal pain, vomiting or diarrhea. If only symptom is sore throat, body aches, headache and change in taste or smell ok for drive thru testing. PROVIDER EVALUATION REQUIRED [] Patient Requested [] Temp >102 F [] O2 Sat ? 95% [] Pulse > 100 [] Symptomatic with any listed comorbidities [] Dominant sore throat with little or no cough (strep rule out) [] Age <15 years old with symptoms Discharge: [x] Social Distancing/Quarantine GuidelinesElectronically signed by DARLENE Pastrana 02/21/2020 8:17 AM PDTdocumented in this encounter Plan of Treatment Not [...] + + documented in this encounter Results Coronavirus (COVID-19) NAAT (02/21/2020 8:13 AM [...] + + | Performed at: 01 - [facility] [place] [address], [place], [place] | REFERENCE LAB | | [phone] Radio Journalist: Dionicio Gibbs MD, Phone: [phone] | [facility] | + + + + + + + + | Performing | Address | City/State/Zipcode | Phone Number | | Organization | | | | + + + + + | REFERENCE LAB | [address] | [place], [place] | [phone] | | [facility] | [address]av [address] | [address] | | + + + + + documented in this encounter Visit Diagnoses + + | Diagnosis | + + | Preop testing Preoperative examination, unspecified | + + documented in this encounter Additional Health Concerns [...]
--- OUTSIDE RECORDS SUMMARY | ~2020-03-03 | XMS | Encounter Summary ---
Demographics + + + | Address | [address] | | | [place] [address] | + + + | Home Phone | | + + + | Preferred Language | Unknown | + + + | Marital Status | Legally | + + + | Jew Affiliation | 1013 | + + + | Race | Unknown | + + + | Ethnic Group | Unknown | + + + Author + + + | Author | [facility] | | | and [place] | + + + | Organization | [facility] | | | [...] Providers + +------+ + | Care Software Clerk Name | Role | Phone | + [...] [address] [place] | | | | | [place], [place] | [place] [address] | | | | | [address] | [phone] | | | | | [phone] | | | +--------+ + + + [...]
--- OUTSIDE RECORDS SUMMARY | ~2020-03-03 | XMS | Encounter Summary ---
Demographics + + + | Address | [address] | | | [place] [address] | + + + | Home Phone | | + + + | Preferred Language | Unknown | + + + | Marital Status | Legally | + + + | Sikhism Affiliation | 1013 | + + + | Race | Unknown | + + + | Ethnic Group | Unknown | + + + Author + + + | Author | [facility] | | | and [place] | + + + | Organization | [facility] | | | and [...] Team Providers + +------+ + | Care Extracorporeal Technician Name | Role | Phone | + [...] | unspecified COPD | | | | [place], [place] | [place] [address] | type (HCC) (Primary | | | | [address] | [phone] | Dx); Essential | | | | [phone] | | hypertension; | | | | [...] mL/min/1.73m2 | [facility] | | | [facility] | RATE,ESTIMATED | | MEDICAL | | | | mL/min/1.05c9Sdtz than | | CENTER - | | [...] + | [address] | [address] | [place] | [phone] | | [facility] | | [address] | | | - LABORATORY | | [...] | | Neutrophils | | K/uL | [facility] | [...] | 0.00 | 0.00 - 0.01 | KIP | | | nRBC | | K/uL [...] [address] | [place] | [phone] | | [facility] | | [address] | | | - LABORATORY | | [...]
--- OUTSIDE RECORDS SUMMARY | ~2020-03-03 | XMS | Encounter Summary ---
Demographics + + + | Address | [address] | | | [place] [address] | + + + | Home Phone | | + + + | Preferred Language | Unknown | + + + | Marital Status | Legally | + + + | Druze Affiliation | 1013 | + + + | Race | Unknown | + + + | Ethnic Group | Unknown | + + + Author + + + | Author | [facility] | | | and [place] | + + + | Organization | [facility] | | | [...] Team Providers + +------+ + | Care Electric Meter Repairer Helper Name | Role | Phone | + [...] | | | | [address] | [place] [address] | | | | | [place] [address] | | | | | | [phone] | | | +--------+ + + + [...]
--- OUTSIDE RECORDS SUMMARY | ~2020-03-03 | XMS | Encounter Summary ---
Demographics + + + | Address | [address] | | | [place] [address] | + + + | Home Phone | | + + + | Preferred Language | Unknown | + + + | Marital Status | Legally | + + + | Sabianism Affiliation | 1013 | + + + | Race | Unknown | + + + | Ethnic Group | Unknown | + + + Author + + + | Author | [facility] | | | and [place] | + + + | Organization | [facility] | | | [...] Team Providers + +------+ + | Care Single Stroke Preformer Name | Role | Phone | + +------+ + | Tate Hoff | PCP | | + +------+ + Reason for Visit + +--------+ + | Reason | Onset | Comments | | | Date | | + +--------+ + | Surgery Appointment | 10/23/ | Call patient, he has questions. | | | 2020 | | + +--------+ + Encounter Details +--------+ + + + + | Date | Type | Department | Care Team | Description | +--------+ + + + + | 10/23/ | Telephone | [facility] | Girish Cleveland | Surgery Appointment | | 2019 | | NEUROSURGERY [address] | MD Carissa [address] | (Call patient, he | | | | [address] | [address] [place] | has questions. ) | | | | [place] | [place] [address] | | | | | [address] | [phone] | | | | | [phone] | | | +--------+ + + + [...] encounter Miscellaneous Notes Telephone Encounter - Deya Joyce, Guardian Family Member - 10/25/2019 10:37 AM PSTSursalvadorjosr rodriguez dafne on 11/15/2019 has been cancelled as well as any preop and postop appointments. Elec tronically signed by Deya Joyce Guardian Family Member at 10/25/2019 10:38 AM PSTTelephone E car - Ana Laura Angel RN - 10/25/2019 10:00 AM PSTReceived a call from Terrence Johnson (his ) and she said he wants to cancel the surgery at this time. He is afraid of bringing so mething home to his who has stage 4 lung cancer. He wants to wait until the "coronaviru s situation resolves." I advised her to have him call in when he was ready to proceed with s urgery. He asked for pain medication. I advised he would need to contact his PCP for pain me dication as we could only prescribe in the post op phase. He verbalized understanding. Elect ronically signed by Ana Laura Angel RN at 10/25/2019 10:07 AM PSTTelephone Encounter - Ana Laura Angel RN - 10/24/2019 10:35 AM PSTAttempted to call to clarify questions. No answer, left message to call the clinic. elephone Encounter - Cynthia Cho - 10/24/2019 10:17 AM PSTPlease call Srini, he has some questions regarding his upcoming surgery. documented in this encounter Plan of Treatment [...]
--- OUTSIDE RECORDS SUMMARY | ~2020-03-03 | XMS | Encounter Summary ---
Demographics + + + | Address | [address] | | | [place] [address] | + + + | Home Phone | | + + + | Preferred Language | Unknown | + + + | Marital Status | Legally | + + + | Druze Affiliation | 1013 | + + + | Race | Unknown | + + + | Ethnic Group | Unknown | + + + Author + + + | Author | [facility] | | | and [place] | + + + | Organization | [facility] | | [...] Team Providers + +------+ + | Care Meat Inspector Name | Role | Phone | + +------+ + | Tate Hoff | PCP | | + +------+ + Reason for Visit + + + | Reason | Comments | + + + | Pain Management | preop and DC MEDD (DOS CORE SHAPER TOP) | + + + Encounter Details +--------+ + + + + | Date | Type | Department | Care Team | Description | +--------+ + + + + | 02/24/ | Documentati | [facility] | Girish Cleveland | Pain Management | | 2020 | on | [place] [address] Elissa Ferrer MD [address] | (preop and DC MEDD | | | | [address] | [address] [place] | (DOS CORE SHAPER TOP)) | | | | [place] | [place] [address] | | | | | [address] | [phone] | | | | | [phone] | | | +--------+ + + + [...] + documented as of this encounter Progress Ana Laura Bah RN - 02/25/2020 8:20 AM PDTSurgery cancelled. Closing this encounter.Electr onically signed by Ana Laura Angel RN at 02/25/2020 1:23 PM PDTAna Laura Angel RN - 02/25/2020 8:20 AM PDTPDMP check r/t 02/25/20 Anterior Cervical Discectomy Fusion at C3-C4, C6-C7 by Dr. Cleveland PREMICHELLE MEDD=0 The following information was obtained from [email or web address]/myAccess/saw/select .do on 02/25/20. No results from [place] 12 month CORE SHAPER TOP query Results from [facility] 12 month CORE SHAPER TOP query Last filled 10/25/19 Percocet #20 documented in this enco unter Plan of [...]
--- OUTSIDE RECORDS SUMMARY | ~2020-03-03 | XMS | Encounter Summary ---
Demographics + + + | Address | [address] | | | [place] [address] | + + + | Home Phone | | + + + | Preferred Language | Unknown | + + + | Marital Status | Legally | + + + | Amish Affiliation | 1013 | + + + | Race | Unknown | + + + | Ethnic Group | Unknown | + + + Author + + + | Author | [facility] | | | and [place] | + + + | Organization | [facility] | [...] Team Providers + +------+ + | Care Handicrafts Teacher Name | Role | Phone | + +------+ + | Tate Hoff | PCP | | + +------+ + Encounter Details +--------+ + + + + | Date | Type | Department | Care Team | Description | +--------+ + + + + | 10/10/ | Preadmit | [facility] | Girish Cleveland | Preoperative | | 2020 | Visit | [facility] | J, MD [address] | clearance (Primary | | | | CLINIC [address] | [address] [place] | Dx); Chronic | | | | [place], [place] | [place] [address] | obstructive | | | | [address] | [phone] | pulmonary disease, | | | | [phone] | | unspecified COPD | | | | | | type (HCC); | | | | | | Essential | | | | | | hypertension; | | | | [...] + | CBC WITH | Routin | 10/10/2019 | Chronic | Results for this | | DIFFERENTIAL | e | 1:52 PM | obstructive | procedure are in the | | | | PST | pulmonary disease, | results section. | | | | | unspecified COPD | | | | | | type (HCC) | | | | | | Essential | | | | | | hypertension | | | | | | Obstructive sleep | | | | | | apnea on CPAP | | | | | | Chronic | | | | | | pancreatitis, | | | | | | unspecified | | | | | | pancreatitis type | | | | | | (HCC) | | | | | | Gastroesophageal | | | | | | reflux disease, | | | | | | esophagitis presence | | | | | | not specified | | | | | | Hyperlipidemia, | | | | | | mixed Preoperative | | | | | | clearance | | + +--------+ + + + | BASIC METABOLIC | Routin | 10/10/2019 | Chronic | Results for this | | PANEL | e | 1:52 PM | obstructive | procedure are in the | | | | PST | pulmonary disease, | results section. | | | | | unspecified COPD | | | | | | type (HCC) | | | | | | Essential | | | | | | hypertension | | | | | | Obstructive sleep | | | | | | apnea on CPAP | | | | | | Chronic | | | | | | pancreatitis, | | | | | | unspecified | | | | | | pancreatitis type | | | | | | (HCC) | | | | | | Gastroesophageal | | | | | | reflux disease, | | | | | | esophagitis presence | | | | | | not specified | | | | | | Hyperlipidemia, | | | | | | mixed Preoperative | | | | | | clearance | | + +--------+ + + + | CULTURE, MRSA | Routin | 10/10/2019 | Preoperative | Results for this | | | e | 1:51 PM | clearance Chronic | procedure are in the | | | | PST | obstructive | results section. | | | | | pulmonary disease, | | | | | | unspecified COPD | | | | | | type (HCC) | | | | | | Essential | | | | | | hypertension | | | | | | Obstructive sleep | | | | | | apnea on CPAP | | | | | | Chronic | | | | | | pancreatitis, | | | | | | unspecified | | | | | | pancreatitis type | | | | | | (HCC) | | | | | | Gastroesophageal | | | | | | reflux disease, | | | | | | esophagitis presence | | | | | | not specified | | | | | | Hyperlipidemia, | | | | | | mixed | | + +--------+ + + + | MISC LAB REFERRAL | Routin | 10/10/2019 | Preoperative | Results for this | | | e | 1:42 PM | clearance Chronic | procedure are in the | | | | PST | obstructive | results section. | | | | | pulmonary disease, | | | | | | unspecified COPD | | | | | | type (HCC) | | | | | | Essential | | | | | | hypertension | | | | | | Obstructive sleep | | | | | | apnea on CPAP | | | | | | Chronic | | | | | | pancreatitis, | | | | | | unspecified | | | | | | pancreatitis type | | | | | | (HCC) | | | | | | Gastroesophageal | | | | | | reflux disease, | | | | | | esophagitis presence | | | | | | not specified | | | | | | Hyperlipidemia, | | | | | | mixed | | + +--------+ + + + documented in this encounter Results CBC with Differential (10/10/2019 1:52 PM PST) + + + + + + | Component | Value | Ref Range | Performed | Pathologist | | | | | At | Signature | + + + + + + | White Blood | 10.3 | 4.0 - 11.0 K/uL | [facility] | | | Cells | | | [facility] | | [...] Granulocyte | Preliminary studies have | | [facility] | | | s | indicated the [...] | Basophils | | K/uL | [facility] | | | | | | MEDICAL | | | | | | CENTER - | | | | | | LABORATORY | | + + + + + + | Absolute | 0.07 (H) | 0.00 - 0.03 | [facility] | | | Immature | | K/uL | [facility] | | | Granulocyte | | | MEDICAL | | | s | | | CENTER - | | | | | | LABORATORY | | + + + + + + | % nRBC | 0 | 0 - 2 per 100 | [facility] | | | | | WBCs | [facility] | | | | [...] [address] | [place] | [phone] | | [facility] | | [address] | | | - LABORATORY | | | | + + + + + Basic Metabolic Panel (10/10/2019 1:52 PM PST) [...] 100 | 60 - 106 mg/dL | [facility] | | | | | | [facility] | | | | | | MEDICAL | | | | | | CENTER - | | | | | | LABORATORY | | + + + + + + | BUN | 15 | 9 - 23 mg/dL | [facility] | | | | | | [facility] | | | | | | MEDICAL | | | | | | CENTER - | | | | | | LABORATORY | | + + + + + + | Creatinine | 0.82 | 0.70 - 1.30 | [facility] | | | | | mg/dL | [facility] | | | | | | MEDICAL | | | | | | CENTER - | | | | | | LABORATORY | | + + + + + + | eGFR if not | >60Comment: GLOMERULAR | >=60 | [facility] | | | | FILTRATION | mL/min/1.73m2 | [facility] | | | THAI | RATE,ESTIMATED | | MEDICAL | | | | mL/min/1.36t7Nsob than | | CENTER - | | [...] [address] | [place] | [phone] | | [facility] | | [address] | | | - LABORATORY | | | | + + + + + Culture, MRSA (10/10/2019 1:51 PM PST) + + + + + + | Component | Value | Ref Range | Performed | Pathologist | | | | | At | Signature | + + + + + + | Culture | 4+ Staphylococcus | | [facility] | | | | aureus,Methicillin | | [facility] | | | | resistant (MRSA)Comment: | | MEDICAL | | | | *INFECTION PREVENTION | | CENTER - | | | | ALERT - MRSA* CONTACT | | LABORATORY | | | | PRECAUTIONS REQUIRED. | | | | + + + [...] [address] | [place] | [phone] | | [facility] | | [address] | | | - LABORATORY | | | | + + + + + [facility] Lab Referral (10/10/2019 1:42 PM PST) + + + + + + | Component | Value | Ref Range | Performed | Pathologist | | | | | At | Signature | + + + + + + | Miscellaneo | COMMENTComment: Test | | REFERENCE | | | us Lab Test | Ordered: [id number] Nicotine | | LAB [facility] | | | | Metabolite, | | - [facility] | | | | UrineCotinine | | | | | | | | | | | | Positive [A ] ng/mL | | | | | | 01 Reference | | | | | | Range: Nhuzoe=156 | | | | | | | | | | | | Drug Screen | | | | | | Comment: | | | | | | Comment | | | | | | 02 This | | | | | | analysis is performed by | | | | | | immunoassay. Positive | | | | | | findings areunconfirmed | | | | | | analytical test results; | | | | | | if results do not | | | | | | supportexpected clinical | | | | | | finding, confirmation | | | | | | by an alternate | | | | | | methodology | | | | | | isrecommended. Patient | | | | | | metabolic variables, | | | | | | specific drug chemistry, | | | | | | andspecimen | | | | | | characteristics can | | | | | | affect test | | | | | | outcome.Technical | | | | | | consultation is | | | | | | available at | | | | | | [email or web address], | | | | | | or calltoll free | | | | | | [phone]. | | | | + + + + + + + + | Specimen | + + | Blood | + + + + + | Narrative | Performed At | + + + | Performed At: 01 [facility] [address] [facility], [place] | REFERENCE LAB | | [id number] Norm Hobbs PhD Ph:[phone] Performed At: [facility] | [facility] | | [address] [place] [id number] [place] | | | Daily Koehler MD Ph:[phone] | | + + + + + + + + | Performing | Address | City/State/Zipcode | Phone Number | | Organization | | | | + + + + + | [facility] | [address] | [place], [place] | [phone] | | [facility] | [facility] | [address] | | + + + + + documented in this encounter Visit Diagnoses + + | Diagnosis | + + | Preoperative clearance - Primary Preoperative examination, unspecified | + + | Chronic obstructive pulmonary disease, unspecified COPD type (HCC) | + + | Essential hypertension Unspecified [...]
--- OUTSIDE RECORDS SUMMARY | ~2020-03-03 | XMS | Encounter Summary ---
Demographics + + + | Address | [address] | | | [place] [address] | + + + | Home Phone | | + + + | Preferred Language | Unknown | + + + | Marital Status | Legally | + + + | Uatsdin Affiliation | 1013 | + + + [...] Team Providers + +------+ + | Care Geothermal System Installer Name | Role | Phone | + +------+ + | Tate Hoff | PCP | | + +------+ + Reason for Visit + + + | Reason | Comments | + + + | Pain Management | preop CHEMICAL DEPENDENCY COUNSELOR | + + + Encounter Details +--------+ + + + + | Date | Type | Department | Care Team | Description | +--------+ + + + + | 01/30/ | Documentati | [facility] [place] | Girish Cleveland | Pain Management | | 2019 | on | [address] | MD Carissa [address] | (preop CHEMICAL DEPENDENCY COUNSELOR) | | | | [address] | [address] [place] | | | | | [place], [place] | [place] [address] | | | | | [address] | [phone] | | | | | [phone] | | | +--------+ + + + [...] MEDD=0 The following information was obtained from [email or web address]://[email or web address] on 01/31/20. No results from [place] 3 month CHEMICAL DEPENDENCY COUNSELOR query No results from [facility] 3 month CHEMICAL DEPENDENCY COUNSELOR query documented in this enco unter Plan [...]
--- OUTSIDE RECORDS SUMMARY | ~2020-03-03 | XMS | Encounter Summary ---
Demographics + + + | Address | [address] | | | [place] [address] | + + + | Home Phone | | + + + | Preferred Language | Unknown | + + + | Marital Status | Legally | + + + | Muslim Affiliation | 1013 | + + + | Race | Unknown | + + + | Ethnic Group | Unknown | + + + Author + + + | Author | [facility] | | | and [place] | + + + | Organization | [facility] | | | and [...] Team Providers + +------+ + | Care Financial Underwriter Name | Role | Phone | + +------+ + | Tate Hoff | PCP | | + +------+ + Reason for Visit + + + | Reason | Comments | + + + | Pain Management | intital encounter | + + + Encounter Details +--------+ + + + + | Date | Type | Department | Care Team | Description | +--------+ + + + + | 08/21/ | Documentati | [facility] | Girish Cleveland | Pain Management | | 2019 | on | NE[address]ERY [address] | MD Carissa [address] | (intital encounter) | | | | [address] | [address] | | | | | [place] | [place] [address] | | | | | [address] | [phone] | | | | | [phone] | | | +--------+ + + + [...] documented as of this encounter Progress Notes Felicity Blanco Cert MA - 08/21/2019 2:50 PM PSTPatient states he is not taking pain medi cations. (medication strength, dose, frequency) [facility] VP PROJECT was checked on 08/21/19 and no medications have been dispensed in the last 3 months. documented in th is encounter Plan of Treatment Not on filedocumented as of this encounter Visit Diagnoses Not on filedocumented in this encounter"
--- OUTSIDE RECORDS SUMMARY | ~2020-03-03 | XMS | Encounter Summary ---
Demographics + + + | Address | [address] | | | [place] [address] | + + + | Home Phone | | + + + | Preferred Language | Unknown | + + + | Marital Status | Legally | + + + | Bahai Affiliation | 1013 | + + + | Race | Unknown | + + + | Ethnic Group | Unknown | + + + Author + + + | Author | [facility] | | | and [place] | + + + | Organization | [facility] | | | [...] Team Providers + +------+ + | Care Hand Cementer Name | Role | Phone | + +------+ + | Tate Hoff | PCP | | + +------+ + Reason for Visit + +--------+ + | Reason | Onset | Comments | | | Date | | + +--------+ + | Case Management | 02/14/ | pre discharge planning | | | 2020 | | + +--------+ + Encounter Details +--------+ + + + + | Date | Type | Department | Care Team | Description | +--------+ + + + + | 02/14/ | Telephone | [facility] | Ashely Sanchez, | Case Management (pre | | 2019 | | MED CTR CASE | RN | discharge planning) | | | | MANAGEMENT [address] | | | | | | [place], | | | | | | [place] [address] | | | | | | [phone] | | | +--------+ + + + [...] this encounter Miscellaneous Notes Telephone Encounter - Ashely Sanchez RN - 02/15/2020 3:04 PM PDTOutpatient Case Managem ent: Pre - discharge planning. I called and spoke to Srini. He states he lives in a multilevel home with 8 steps to get i nto the front door (with handrails) and 24 steps once inside. He has a bathroom on the same floor that he will be sleeping in. He has a tub shower with a curtain and grab bars in the shower. He owns a cane but not other DME reported. He lives with his Terrence Johnson. She will be his support person following his surgery s cheduled for 02-25-2020. He states he has had surgery before and is familiar with the dischar ge process. He will use [employer] transportation. He has not scheduled his ride yet as he is wa iting for a surgery time. I told him he would be contacted by the neurosurgery department f or this information. He did not have any questions for me at this time. DISPO: Home with Cristina, Transportation via [employer] Electronically signed by: Ashely Sanchez RN 02/15/2020 3:11 PM PDT documented in this e ncounter Plan of Treatment Not on filedocumented as [...]
--- OUTSIDE RECORDS SUMMARY | ~2020-03-03 | XMS | Encounter Summary ---
Demographics + + + | Address | [address] | | | [place] [address] | + + + | Home Phone | | + + + | Preferred Language | Unknown | + + + | Marital Status | Legally | + + + | Buddhist Affiliation | 1013 | + + + | Race | Unknown | + + + | Ethnic Group | Unknown | + + + Author + + + | Author | [facility] | | | and [place] | + + + | Organization | [facility] | | | [...] Team Providers + +------+ + | Care Director Of Acquisition Marketing Name | Role | Phone | + [...] | stenosis (Primary | | | | [place], [place] | [place] [address] | Dx); Cervical | | | | [address] | [phone] | myelopathy (HCC) | | | | [phone] | | | +--------+ + + + [...]
--- OUTSIDE RECORDS SUMMARY | ~2020-03-03 | XMS | Encounter Summary ---
Demographics + + + | Address | [address] | | | [place] [address] | + + + | Home Phone | | + + + | Preferred Language | Unknown | + + + | Marital Status | Legally | + + + | Oriental Orthodox Affiliation | 1013 | + + + | Race | Unknown | + + + | Ethnic Group | Unknown | + + + Author + + + | Author | [facility] | | | and [place] | + + + | Organization | [facility] | | [...] Team Providers + +------+ + | Care Towel Sorter Name | Role | Phone | + +------+ + | Tate Hoff | PCP | | + +------+ + Reason for Visit +---------+--------+ + | Reason | Onset | Comments | | | Date | | +---------+--------+ + | Imaging | 08/23/ | Ask for images from [facility] and let patient know if | | | 2020 | we need any others completed. | +---------+--------+ + Encounter Details +--------+ + + + + | Date | Type | Department | Care Team | Description | +--------+ + + + + | 08/23/ | Telephone | [facility] [place] | Girish Cleveland | Imaging (Ask for | | 2020 | | NEUROSURGERY [address] | MD Carissa [address] | images from St | | | | [address] | [address] [place] | Timo and let | | | | [place] | [place] [address] | patient know if we | | | | [address] | [phone] | need any others | | | | [phone] | | completed. ) | +--------+ + [...] Miscellaneous Notes Telephone Encounter - Corinna Finley, [employer] - 08/24/2019 9:08 AM PSTImaging o jatinder Chandra TTelephone Encounter - Kristin Shelton CMA - 08/23/2019 10:41 AM PSTCalled [facility] to [facility] compl eted [facility], patient has not had cervical x-rays. Called to inform him that we would need th ose prior to the appointment. Patient will go to [facility] today to complete these. Orders faxed.E lectronically signed by Kristin Shelton CMA at 08/23/2019 10:46 AM PSTTelephone Encounter - Cynthia Connolly - 08/23/2019 9:55 AM PSTPatient [facility] [place]rays [facility] it included the neck with multiple views. Same day as the MRI. Can we please request those and let him know if we need anything else. documented in this encounter Plan of Treatment Not on filedocumented as of this encounter Visit Diagnoses Not on filedocumented in this encounter"
--- OUTSIDE RECORDS SUMMARY | ~2020-03-03 | XMS | Encounter Summary ---
Demographics + + + | Address | [address] | | | [place] [address] | + + + | Home Phone | | + + + | Preferred Language | Unknown | + + + | Marital Status | Legally | + + + | Bahai Affiliation | 1013 | + + + | Race | Unknown | + + + | Ethnic Group | Unknown | + + + Author + + + | Author | [facility] | | | and [place] | + + + | Organization | [facility] | | [...] Team Providers + +------+ + | Care Web Consultant Name | Role | Phone | + +------+ + | Tate Hoff | PCP | | + +------+ + Reason for Visit + + + | Reason | Comments | + + + | Pre-op Exam | C3-C4, C6-C7 ACDF | + + + Encounter Details +--------+---------+ + + + | Date | Type | Department | Care Team | Description | +--------+---------+ + + + | 01/31/ | Office | [facility] | Girish Cleveland | Cervical spinal | | 2019 | Visit | NEUROSURGERY [address] | [address] | stenosis (Primary | | | | [address] | [address] [place] | Dx); Adjacent | | | | [place] | [place] [address] | segment disease with | | | | [address] | [phone] | spinal stenosis | | | | [phone] | | | +--------+---------+ + + + [...] + + + + | Pulse | 58 | 02/01/2020 8:37 AM | | | | | PDT | | + + + + + | Temperature | 36.4 C (97.5 F) | 02/01/2020 8:37 AM | | | | | PDT | | + + + + + | Respiratory Rate | 16 | 02/01/2020 8:37 AM | | | | | PDT | | + + + + + | Oxygen Saturation | 97% | 02/01/2020 8:37 AM | | | [...] Patient Instructions Ana Laura Angel RN - 02/01/2020 8:30 AM PDTYou need to complete covid 19 testing 4 days prior to your procedure. Please complete as indicated on handout and [facility] quarantine guidelines. Surgery may be cancelled if not completed as instructed. We will call you 2 business days [...] water the morning of your s urgery. Use surgical wipes as instructed on page 15 of Preparing for Surgery booklet. Please review the medications you were instructed [...] include attending Spine Class or viewing the Viddyad version of Spine Class on Lastline Preparing for Neck Surgery (Belarusian) [email or web address] Here are some resources that may be helpful for managing postoperative pain: Persistent Pain Toolkit for Patients and Families: Includes education on pain in general (multiple languages) and education on pain after inju ry or surgery. Relaxation videos practice techniques to quiet pain. https://[place].[facility]/our-services/p/qfevsnaogh-kifknidrea-qidi/pnepfxbyvr-tjrt-vrd lkit/kikmqkh-rjz-bbzukcdt-toolkit/ynoung-tuxr-zahgbhlxl/ Surgical Pain Handout: https://www.fauzia.wv.gov/Portals/1/Documents/9220/515589-YiuynstMhnxvaozvwyw-EizodqgtVrwl.pdf If you have any questions or concerns, please call the neurosurgery clinic o r send us a My Chart message. documented in this encounter Progress Notes Kristin Shelton CMA - 02/01/2020 8:30 AM PDTPatient was provided a copy of the Preparing for Surgery booklet and encouraged to read this to prepare for surgery and recovery. Informed consent for the planned procedure was signed and a copy provided to the patient al elizabeth with a signed copy of the Pain Care Agreement. Patient was advised to stop taking the following medications: Aspirin and naproxen-hold 7 d ays prior to surgery Lisinopril-hold 24 hrs prior [...] prio r to the date of surgery. irish Cleveland MD - 02/01/2020 8:30 AM PDT Girish Cleveland MD [address] [place] [address], [address] [place], [place] [id number] FAX: [phone] NEUROSURGERY HISTORY AND PHYSICAL EXAMINATION CHIEF COMPLAINT: Chief Complaint Patient presents with Pre-op Exam C3-C4, C6-C7 ACDF HISTORY OF PRESENT ILLNESS: Srini Johnsno is a 54 y.o. male that presents today for a pre -op exam. He is scheduled for a anterior cervical discectomy fusion at C3-C4, C6-C7 on 02/24. He was scheduled for this surgery on 10/22/19 but due to the COVID-19 pandemic he was rescheduled for 02/25/2020. He continues to have neck and bilateral shoulder pain. He reports that he is unable to lift his arms above his head with out causing shoulder pain but for hi s neck pain there has not been any changes. He had started smoking again due to stress becau se his has cancer and is not doing well. He is knows that he needs to quit and is worki ng on that. PAST MEDICAL HISTORY: Past Medical History: Diagnosis [...] DISC ARTHROPLASTY Anterior 09/13/2006 Dr. Crow @ [facility] C4-C5 and C5-C6 anterior cervical discectomy and fusion with anterior farida te from C4-C6. CERVICAL FUSION 2009 C4-6 CHOLECYSTECTOMY, LAPAROSCOPIC 05/12/2009 Dr. [email or web address]: Cholecystectomy, lap with intraoperative cholangiograms EGD AND COLONOSCOPY 03/15/2014 Dr. Cerna, moderate hiatal hernia, patchy antral and body gastritis GASTRIC FUNDOPLICATION HEMORRHOID SURGERY 08/22/2005 HIATAL HERNIA REPAIR 08/22/2004 RECTAL SURGERY 01/20/2014 Dr. Faria; INCISION OF RECTAL ABSCESS TONSILLECTOMY AND ADENOIDECTOMY 08/22/1969 UPPER GASTROINTESTINAL ENDOSCOPY 10/30/2003 Dr. Castillo @[facility] POSTOPERATIVE DIAGNOSIS: HIATAL HERNIA AND DISTAL ESOPHAGITIS CURRENT MEDICATIONS: Current Outpatient Medications Medication Sig Dispense Refill yefjrcz-beuqhq-nwpsbgcx (ZENPEP) 84,000-20,000-63,000 units per capsule Take 1 capsule by mouth 3 (three) times daily. aspirin 81 mg EC tablet Take 81 mg by mouth Daily. atorvaSTATin (LIPITOR) 20 mg tablet Take 20 mg by mouth Daily. busPIRone (BUSPAR) 10 MG tablet Take 10 mg by mouth 3 times daily. dicyclomine (BENTYL) 20 MG tablet Take 1 tablet by mouth 4 times daily. ergocalciferol (VITAMIN D2) 1.25 mg (50,000 units) capsule haloperidol (HALDOL) 5 mg tablet TAKE 1 [...] BY MOUTH ONCE DAILY. NOTICE STRENGTH CHAGNE Gemisimo. Devices (QUAD CANE) SinColaC Cane wood 8 ball handle black, requires [...] No current facility-administered medications for this visit. Facility-Administered Medications Ordered in Other Visits Medication Dose Route Frequency Provider Last Rate Last Dose vancomycin 1 g in sodium chloride 0.9% 250 mL IVPB 1 g Intravenous Prior to Incision M markel Cleveland MD ALLERGIES: Allergies Allergen Reactions Baclofen Swelling, Rash [...] Ovarian cancer Other Review of Systems Constitutional: Negative. HENT: Negative. Eyes: Negative. Respiratory: Negative. Cardiovascular: Negative. Gastrointestinal: Negative. Genitourinary: Negative. Musculoskeletal: Positive for back pain, joint pain and neck pain. Skin: Negative. Neurological: Positive for tingling (bilateral arms and hands ). Endo/Heme/Allergies: Negative. Psychiatric/Behavioral: Positive for depression. PHYSICAL EXAMINATION: Blood pressure 100/60, pulse 58, temperature 36.4 C (97.5 F), temperature source Tempor al, resp. rate 16, height 1.702 m (5' 7"), weight 80.8 kg (178 lb 2.1 oz), SpO2 97 %. Body m ass index is 27.9 kg/m. GENERAL: Srini Johnson is in no acute distress with unlabored respirations. The patient d oes appear comfortable throughout the exam today. HEENT: Head: Normocephalic/atraumatic with no areas of recent trauma. Eyes: Normal sclerae without icterus. Ears: No drainage or tenderness. Nasopharnyx: Clear without drainage. Oropharnyx: Clear without erythema. NECK (ANTERIOR): Supple and without palpable masses. CHEST: Clear to ausculation without crackles or wheeze. HEART: Regular rate and rhythm without murmurs. ABDOMEN: Soft, non-tender, non-distended, and without palpable masses. SPINE: Well-healed anterior fusion scar. EXTREMITIES: No cyanosis, clubbing, or edema. Distal pulses are palpable. NEUROLOGICAL EXAM: MENTAL STATUS: He is awake, alert, and oriented. He follows simple and complex commands. His speech is fluent, he comprehends speech well, and he repeats well. He has no apparent deficits with short or mcc memory. CRANIAL NERVES: II: Acuity is intact. [...] 5 Interossei 5 5 APB 5 5 Logistics Planning Engineer Strength 5 5 Hip Flexion 5 5 Hip Extension 5 5 Knee Flexion 5 5 Knee Extension 5 5 Dorsiflexion 5 5 Extensor Hallicus Longus 5 5 Plantarflexion 5 5 SENSORY EXAM: Sensory exam shows no diminished sensation to light touch or pain throughout the upper and lower extremities. REFLEXES: (2 OR 2+ IS NORMAL) REFLEX: RIGHT LEFT BICEPS 2 2 BRACHIORADIALIS 2 2 TRICEPS 2 2 PATELLAR 2 2 ACHILLES 2 2 ARGUETA'S ABSENT ABSENT CLONUS ABSENT ABSENT BABINSKI NEGATIVE NEGATIVE GAIT: Gait is steady PERIPHERAL NERVE/MISC: Tinel is negative at the wrists and elbows bilaterally. Phalen is negative. Straight leg raise is negative bilaterally. Hayder's test of the hips is negative bilaterally. TEST AND RADIOGRAPHIC REVIEW: His imaging was reviewed in detail during the visit. The MRI from 08/06/2019 shows adjacen t level disc disease at C3-4 above, and at C6-7 below his previous anterior cervical fusion with subtle changes in cord signal on T2 weighted images at both levels. Cervical x-rays from 08/06/2019 shows a well incorporated anterior fusion from C4-6. The caudal end of the plate tends slightly to the left, and hence I will try to put the interbo dy cage at C6-7 centrally or slightly to the right. ASSESSMENT: Symptomatic cervical spinal stenosis due to adjacent level degenerative change at C3-4 abov e, and C6-7 below, a previous C4-6 anterior cervical fusion. NEUROSURGICAL DIAGNOSES: Encounter Diagnoses Name Primary? Cervical spinal stenosis Yes Adjacent segment disease with spinal stenosis GENERAL DIAGNOSES: Past Medical History: Diagnosis Date [...] biliary colic Sleep apnea no CPAP PLAN: Srini Young Johnson presented today , and it was a pleasure seeing this patient and assessing hi s neurologic problems. We had a lengthy discussion with the patient about his surgery and the recovery process. Jalen daly states that he understands and would like to proceed with the anterior cervical discec mohamud and fusion at C3-C4, C6-C7 surgery that is scheduled on 02/25/2020. Discussed that this surgery will not make him 100% pain free, he could have swallowing trou ble and or hoarseness after the procedure. Explained the risks of surgery and the patient sh owed that he understood and would like to proceed with the procedure as planned. I, Girish Cleveland MD, personally performed the services described in this documentatio n, as scribed by DAKOTA Sheridan in my presence, and it is both accurate and complete. Girish Cleveland MD 02/01/20 ELECTRONICALLY SIGNED BY: Girish Cleveland MD, 02/01/2020 9:05 AM documented in thi s encounter Plan of Treatment Not on filedocumented as of this encounter Visit Diagnoses + + | Diagnosis | + + | Cervical spinal stenosis - Primary Spinal stenosis in cervical region | + + | Adjacent segment disease with spinal stenosis | + + documented in this encounter [...]
--- OUTSIDE RECORDS SUMMARY | ~2020-03-03 | XMS | Encounter Summary ---
Demographics + + + | Address | [address] | | | [place] [address] | + + + | Home Phone [...] Team Providers + +------+ + | Care Pack Operator Name | Role | Phone | [...] | | | [address] | [place] [address] | | | | | [address] | [phone] | | | | | [phone] | | | +--------+ + + + [...] Miscellaneous Notes Telephone Encounter - Benja Farrell, Bunch Trimmer Mold - 10/18/2019 12:37 PM PSTAll presurg ical check-in instructions given Surgery date: 10/22/2019 Check-in Time: 8:00AM (OR Schedule states procedure start time 10:00AM) No solids or liquids after midnight the night before surgery. Follow the cleansing instructions provided beginning the night before surgery after you rashawn wer or bathe. No showering the morning of surgery. Please do not wear jewelry, contact lenses, nail ugandan (on fingers or toes), or make-up to [...]
--- OUTSIDE RECORDS SUMMARY | ~2020-03-03 | XMS | Encounter Summary ---
Demographics + + + | Address | [address] | | | [place] [address] | + + + | Home Phone | | + + + | Preferred Language | Unknown | + + + | Marital Status | Legally | + + + | Taoism Affiliation | 1013 | + + + | Race | Unknown | + + + | Ethnic Group | Unknown | + + + Author + + + | Author | [facility] | | | and [place] | + + + | Organization | [facility] | | | [...] Team Providers + +------+ + | Care Card Player Name | Role | Phone | + [...] | (Primary Dx); | | | | [place], [place] | [place] [address] | Chronic | | | | [address] | [phone] | pancreatitis, | | | | [phone] | | unspecified | | | | [...] [address] | [place] | [phone] | | [facility] | | [address] | | | - LABORATORY | | [...] ST. | [address] | [place] | [phone] | | [facility] | | [address] | | | - LABORATORY | | [...] | 0.83 | 0.70 - 1.30 | [facility] | | | | | mg/dL | [facility] | | | | | | MEDICAL | | | | | | CENTER - | | | | | | LABORATORY | | + + + + + + | eGFR if not | >60Comment: GLOMERULAR | >=60 | [facility] | | | | FILTRATION | mL/min/1.73m2 | [facility] | | | INDIAN | RATE,ESTIMATED | | MEDICAL | | | | mL/min/1.30c3Xgto than | | CENTER - | | [...] | | | | | mg/dL | [facility] | | | | | | MEDICAL [...] [address] | [place] | [phone] | | [facility] | | [address] | | | - LABORATORY | | [...]
--- OUTSIDE RECORDS SUMMARY | ~2020-03-03 | XMS | Encounter Summary ---
Demographics + + + | Address | [address] | | | [place] [address] | + + + | Home Phone | | + + + | Preferred Language | Unknown | + + + | Marital Status | Legally | + + + | Jewish Affiliation | 1013 | + + + | Race | Unknown | + + + | Ethnic Group | Unknown | + + + Author + + + | Author | [facility] | | | and [place] | + + + | Organization | [facility] | | | [...] Team Providers + +------+ + | Care Welt Stitcher Name | Role | Phone | + [...] | | | | CLINIC [address] | [address] [place] | Chronic | | | | [place], [place] | [place] [address] | pancreatitis, | | | | [address] | [phone] | unspecified | | | | | [...] | | | FILTRATION | mL/min/1.73m2 | [facility] | | | BEL[place] | RATE,ESTIMATED | | MEDICAL | | | | mL/min/1.93a6Yhvm than | | CENTER - | | [...] | ine Ratio | | | [facility] | | [...] [address] | [place] | [phone] | | [facility] | | [address] | | | - LABORATORY | | [...] | | Cells | | M/uL | . [facility] | | | | | | MEDICAL | | | | | | CENTER - | | | | | | LABORATORY | | + + + + + + | Hemoglobin | 14.7 | 13.5 - 18.0 | [facility] | | | | | g/dL | [facility] | | | | | [...] | | Count | | | [facility] | | | | | | MEDICAL [...] Granulocyte | Preliminary studies have | | [facility] | | | s | indicated [...] | | Lymphocytes | | K/uL | [facility] | | [...] [address] | [place] | [phone] | | [facility] | | [address] | | | - LABORATORY | | [...] [address] | [place] | [phone] | | [facility] | | [address] | | | - LABORATORY | | [...]
--- OUTSIDE RECORDS SUMMARY | ~2020-03-03 | XMS | Encounter Summary ---
Demographics + + + | Address | [address] | | | [place] [address] | + + + | Home Phone | | + + + | Preferred Language | Unknown | + + + | Marital Status | Legally | + + + | Adventist Affiliation | 1013 | + + + | Race | Unknown | + + + | Ethnic Group | Unknown | + + + Author + + + | Author | [facility] | | | and [place] | + + + | Organization | [facility] | | | [...] Team Providers + +------+ + | Care Nematology Teacher Name | Role | Phone | [...] | | [address] | [place] [address] | | | | | [address] | [phone] | | | | | [phone] | | | +--------+ + + + [...] do not wear jewelry, contact lenses, nail comoran (on fingers or toes), or make-up to [...]
--- OUTSIDE RECORDS SUMMARY | ~2020-03-03 | XMS | Encounter Summary ---
Demographics + + + | Address | [address] | | | [place] [address] | + + + | Home Phone | | + + + | Preferred Language | Unknown | + + + | Marital Status | Legally | + + + | Caodaism Affiliation | 1013 | + + + | Race | Unknown | + + + | Ethnic Group | Unknown | + + + Author + + + | Author | [facility] | | | and [place] | + + + | Organization | [facility] | | | [...] Team Providers + +------+ + | Care Chip Mucker Name | Role | Phone | + [...] + + | 09/05/ | Office | [facility] | Jakub Fox, | Essential | | 2020 | Visit | CARDIOLOGY [place] | [address] | hypertension | | | | [address] | [place], [place] | (Primary Dx); | | | | [address] | [address] | Obstructive sleep | | | | [place] | | apnea (adult) | | | | [address] | | (pediatric) | | | | [phone] | | | +--------+---------+ + + + [...] us history of alcohol. Pattient had in [place] coronary angiogram was done, reported with normal coronaries. Past medical history, SH, FH, and medications were reviewed in the chart. Medications: Outpatient Encounter Medications as of 09/05/2019 Medication Sig Dispense Refill Omddmxf-Zonxxx-Tvwatama (PANCRELIPASE 32219 PO) Take 1 capsule by mouth. xvhttay-wvlofi-efvfhsbr (ZENPEP) 84,000-20,000-63,000 units per capsule Take 1 [...] the lungs 2 (two) caro es daily. gaaazy-rrvrcdgu-bavvorz (PANCREAZE 21) 21,000-54,700-83,900 units per capsule Take [...] MD | | | | | | ([phone]) on 09/06/2019 | | | | | [...]
--- OUTSIDE RECORDS SUMMARY | ~2020-03-03 | XMS | Encounter Summary ---
Demographics + + + | Address | [address] | | | [place] [address] | + + + | Home Phone | | + + + | Preferred Language | Unknown | + + + | Marital Status | Legally | + + + | Druze Affiliation | 1013 | + + + | Race | Unknown | + + + | Ethnic Group | Unknown | + + + Author + + + | Author | [facility] | | | and [place] | + + + | Organization | [facility] | | [...] Team Providers + +------+ + | Care Carver And Checkerer Specials Name | Role | Phone | + [...] | | [address] | [place] [address] | | | | | [address] | [phone] | | | | | [phone] | | | +--------+ + + + [...] nasal ointment per the optional protocol at [facility] to start today and then we would r etest and if still positive, he would discuss if the patient still wanted to proceed. He rahul balized understanding. Called a prescription for Mupirocin 2% apply to bilateral nostrils twice daily for 8 days t briana Abdi in [place]. Spoke with Joyce.Electronically signed by Ana Laura Anegl RN at 0 10/22/2019 3:49 PM PSTTelephone Encounter - Jett Corado PA-C - 10/11/2019 1:33 PM PS TMy old supervising physicians felt that this was a protocol instituted by the hospital and not managed by neurosurgery. Since this is a hospital protocol we will allow them to instit tatitlek their designated response to the positive MRSA [...] proceed with 3M nasal antiseptic protocol in [facility] on day of surgery? Please advise.Electronically signed [...]
--- OUTSIDE RECORDS SUMMARY | ~2020-03-03 | XMS | Encounter Summary ---
Demographics + + + | Address | [address] | | | [place] [address] | + + + | Home Phone [...] Team Providers + +------+ + | Care Business Programmer Name | Role | Phone | + [...] | | | | [place] | [phone] | | | | | [address] | | | | | | [phone] | | | +--------+ + + + [...]
--- OUTSIDE RECORDS SUMMARY | ~2020-03-03 | XMS | Encounter Summary ---
Demographics + + + | Address | [address] | | | [place] [address] | + + + | Home Phone | | + + + | Preferred Language | Unknown | + + + | Marital Status | Legally | + + + | Scientologist Affiliation | 1013 | + + + | Race | Unknown | + + + | Ethnic Group | Unknown | + + + Author + + + | Author | [facility] | | | and [place] | + + + | Organization | [facility] | | | [...] Team Providers + +------+ + | Care Lift Slab Operator Name | Role | Phone | [...] + | 09/26/ | Telephone | [facility] | Girish Cleveland | Medical Clearance | | 2019 | | [address] | MD Carissa [address] | | | | | [address] | [address] [place] | | | | | [place], [place] | [place] [address] | | | | | [address] | [phone] | | | | | [phone] | | | +--------+ + + + [...] Miscellaneous Notes Telephone Encounter - Deya Joyce Photo Checker And Assembler - 09/26/2019 4:07 PM PSTMedical c drea [...]
--- OUTSIDE RECORDS SUMMARY | ~2020-03-03 | XMS | Encounter Summary ---
Demographics + + + | Address | [address] | | | [place] [address] | + + + | Home Phone | | + + + | Preferred Language | Unknown | + + + | Marital Status | Legally | + + + | Sikhism Affiliation | 1013 | + + + | Race | Unknown | + + + | Ethnic Group | Unknown | + + + Author + + + | Author | [facility] | | | and [place] | + + + | Organization | [facility] | | | and [...] Team Providers + +------+ + | Care Shop Clerk Name | Role | Phone | [...] | | | | [address] | [place] [address] | | | | | [place] [address] | | | | | | [phone] | | | +--------+ + + + [...]
--- OUTSIDE RECORDS SUMMARY | ~2020-03-03 | XMS | Encounter Summary ---
Demographics + + + | Address | [address] | | | [place] [address] | + + + | Home Phone | | + + + | Preferred Language | Unknown | + + + | Marital Status | Legally | + + + | Confucianism Affiliation | 1013 | + + + | Race | Unknown | + + + | Ethnic Group | Unknown | + + + Author + + + | Author | [facility] | | | and [place] | + + + | Organization | [facility] | | | [...] Team Providers + +------+ + | Care Tower Switch Operator Name | Role | Phone | [...] [address] [place] | | | | | [place], [place] | [place] [address] | | | | | [address] | [phone] | | | | | [phone] | | | +--------+ + + + [...]
--- OUTSIDE RECORDS SUMMARY | ~2020-03-03 | XMS | Encounter Summary ---
Demographics + + + | Address | [address] | | | [place] [address] | + + + | Home Phone | | + + + | Preferred Language | Unknown | + + + | Marital Status | Legally | + + + | Tenriism Affiliation | 1013 | + + + [...] Team Providers + +------+ + | Care Civil Rights Attorney Name | Role | Phone | + [...] + | 02/24/ | Telephone | [facility] | Girish Cleveland | Cancel Surgery | | 2019 | | [address] | MD [address] | | | | | [address] | [address] [place] | | | | | [place], [place] | [place] [address] | | | | | [address] | [phone] | | | | | [phone] | | | +--------+ + + + [...] Telephone Encounter - Kristin Shelton CMA - 02/25/2020 9:26 AM PDTPatient's spouse called to day to cancel the surgery that was scheduled [...]
--- OUTSIDE RECORDS SUMMARY | ~2020-03-03 | XMS | Encounter Summary ---
Demographics + + + | Address | [address] | | | [place] [address] | + + + | Home Phone | | + + + | Preferred Language | Unknown | + + + | Marital Status | Legally | + + + | Temple Affiliation | 1013 | + + + [...] Providers + +------+ + | Care Marketing Development Specialist Name | Role | Phone | + +------+ + | Tate Hoff | PCP | | + +------+ + Reason for Visit + + + | Reason | Comments | + + + | Pain Management | Preop (MILK POWDER GRINDER) | + + + Encounter Details +--------+ + + + + | Date | Type | Department | Care Team | Description | +--------+ + + + + | 10/09/ | Documentati | [facility] | Girish Cleveland | Pain Management | | 2019 | on | [address] | MD Carissa [address] | (Preop (MILK POWDER GRINDER)) | | | | [address] | [address] [place] | | | | | [place], [place] | [place] [address] | | | | | [address] | [phone] | | | | | [phone] | | | +--------+ + + + [...] 15 The following information was obtained from https://Lookmash.[email or web address]/myAccess/saw/select .do on 10/09/19. No results from [place] 3 month MILK POWDER GRINDER query Results from [facility] 3 month MILK POWDER GRINDER query Last filled 09/26/19 percocet 5/325 #30 (15 day supply by PCP) documented in this enco unter Plan of Treatment Not on filedocumented as of this encounter Visit Diagnoses Not on filedocumented in this encounter"
--- OUTSIDE RECORDS SUMMARY | ~2020-03-03 | XMS | Encounter Summary ---
Demographics + + + | Address | [address] | | | [place] [address] | + + + | Home Phone | | + + + | Preferred Language | Unknown | + + + | Marital Status | Legally | + + + | Congregation Affiliation | 1013 | + + + | Race | Unknown | + + + | Ethnic Group | Unknown | + + + Author + + + | Author | [facility] | | | and [place] | + + + | Organization | [facility] | | | and [...] Team Providers + +------+ + | Care Call Circuit Worker Name | Role | Phone | [...] [address] [place] | | | | | [place], [place] | [place] [address] | | | | | [address] | [phone] | | | | | [phone] | | | +--------+ + + + [...] + | Performed at: 01 - [facility] [place] [address], [place], [place] | REFERENCE LAB | | [phone] Casting Operator Helper: Dionicio Gibbs MD, Phone: [phone] | [facility] | + + + + + + + + | Performing | Address | City/State/Zipcode | Phone Number | | Organization | | | | + + + + + | REFERENCE LAB | [id number] | [place], [place] | [phone] | | [facility] | [facility] | [address] | | + + + + + [...]
[~2020-03-03 10:53] MED LIST changes: +PROMETHAZINE HC25 MG PR
--- OUTSIDE RECORDS SUMMARY | 2020-03-03 10:56 | XMS ---
PreManage Notification: VINAY FERNANDEZ Security Textiles Sales Representative Events No recent Security Events currently on file CRITERIA MET - [facility] - Has Care Guidelines - History of Sepsis Dx CARE PROVIDERS CONNER LUU Dentist: Press Clipper 05/16/2019-Current PHONE: [phone] CEE COTTO [facility] Current PHONE: [phone] JOSIAH PEREZ Internal Medicine: Pulmonary Disease 06/26/2018-Current PHONE: Unknown Guidelines Source: dentaZOOM - [place] Guidelines Date: 12/13/2019 Care Coordination: Member is currently engaged in dentaZOOM services. If dentaZOOM services are needed contact [facility] at: Stephanie [phone] [place] [phone] [facility] [phone] Care History Medical/Surgical 09/13/2019 [facility] - PATIENT HAS ANOTHER ER FOLLOW UP APT- WITH PCP DR LUU 09/14/2019. 09/11/2019 [facility] - PATIENT PRIMARY CARE PHYSICIAN- [facility] LUU-[facility] - PATIENT FOLLOWED UP WITH PCP DR LUU 09/11/2019 @ 9:20AM. E.DEmmanuel VISIT COUNT (12 MO.) [address] [facility] [address] Timo Flores TOTAL 7 NOTE: Visits indicate total known visits. ED/UCC VISIT TRACKING (12 MO.) 03/03/2020 10:54 AMBER Phillip [place] TYPE: Emergency COMPLAINT: - CHEST PAIN, VOMITING 12/12/2019 12:42 AMBER Phillip [place] TYPE: Emergency COMPLAINT: - ABDOMINAL PAIN DIAGNOSES: - Unspecified abdominal pain - Allergy status to penicillin - Allergy status to other drugs, medicaments and biological sub - Cyclical vomiting syndrome unrelated to migraine - Epigastric pain - Other chronic pain - Other senior care (current) 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 09/12/2019 12:15 AMBER Phillip [place] TYPE: Emergency COMPLAINT: - ABD PAIN DIAGNOSES: - Nausea with vomiting, unspecified - Other senior care (current) 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 - Allergy status to penicillin - Epigastric pain - Allergy status to other drugs, medicaments and biological sub 09/10/2019 08:47 AMBER Phillip [place] TYPE: Emergency COMPLAINT: - N/V FEVER DIAGNOSES: - Epigastric pain - Nausea with vomiting, unspecified 09/08/2019 09:38 AMBER Phillip [place] TYPE: Emergency COMPLAINT: - HEADACHE,VOMITING,SWEATS DIAGNOSES: - Allergy status to penicillin - Cyclical vomiting syndrome unrelated to migraine - Acute gastritis without bleeding - Unspecified abdominal pain 05/15/2019 12:39 AMBER Phillip [place] TYPE: Emergency COMPLAINT: - ABD PAIN DIAGNOSES: - Other senior care (current) 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 - Allergy status to penicillin - Unspecified abdominal pain - Personal history of nicotine dependence - Allergy status to analgesic agent status - Gastritis, unspecified, without bleeding 03/23/2019 17:53 AMBER Phillip [place] TYPE: Emergency COMPLAINT: - POSSIBLE SIEZURE DIAGNOSES: - Other 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
[2020-03-03] MEDS ORDERED: PRILOSEC OTC20 MG PO (15:10)
[2020-03-03] MEDS ORDERED: REGLAN10 MG PO (15:10)
--- NOTE | 2020-03-04 09:08 | EKG ---
[facility] [address] [place] [address] Signed Sinus bradycardia with premature atrial complexes Minimal voltage criteria for LVH, may be normal variant Borderline ECG When compared with ECG of 25-AUG-2018 06:31, premature atrial complexes are now present Confirmed by GILL LUKE MD ([id number]) on 03/04/2020 9:08:05 AM Electronically Signed By: GILL LUKE MD 03/04/20 0908 PATIENT NAME: VINAY FERNANDEZ Electrocardiogram DATE OF : 63 PHYSICIAN: GILL LUKE MD REPORT #: [id number] REPORT IS CONFIDENTIAL AND NOT TO BE RELEASED WITHOUT AUTHORIZATION
== END 2020-03-03 15:50 | disposition home or self-care (01) ==
LOC: ED 10:53
DX: K22.4 Dyskinesia of esophagus (principal); F17.200 Nicotine dependence, unspecified, uncomplicated; Z88.0 Allergy status to penicillin; Z88.8 Allergy status to other drugs, medicaments and biological substances; Z79.899 Other long term (current) 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
CPT/HCPCS: 71045; 71260; 74174; 80053; 83735; 84484; 85025; 93005; 93010; 99285-25; J2060; J2270; J2405; Q9967

== ENCOUNTER 2020-04-03 09:07 | Emergency (ER) | payer MEDICARE, OTHER ==
[~2020-04-03] VITALS: Ht 170.2 cm; Wt 76.0 kg
--- OUTSIDE RECORDS SUMMARY | ~2020-04-03 | XMS | Encounter Summary ---
Demographics + + + | Address | [address] | | | [place] [address] | + + + | Home Phone | | + + + | Preferred Language | Unknown | + + + | Marital Status | Legally | + + + | Mandaen Affiliation | 1013 | + + + | Race | Unknown | + + + | Ethnic Group | Unknown | + + + Author + + + | Author | [facility] | | | and [place] | + + + | Organization | [facility] | | | and [place] | + + + | Address | Unknown | + + + | Phone | Unavailable | + + + Support + + +---------+ + | Name | Relationship | Address | Phone | + + +---------+ + | Terrence Johnson | ECON | Unknown | | + + +---------+ + Care Team Providers + +------+ + | Care Hose Builder Name | Role | Phone | + +------+ + | Tate Hoff | PCP | | + +------+ + Reason for Visit + + + | Reason | Comments | + + + | Follow-up | | + + + Encounter Details +--------+---------+ + + + | Date | Type | Department | Care Team | Description | +--------+---------+ + + + | 09/05/ | Office | [facility] | Jakub Fox, | Essential | | 2020 | Visit | CARDIOLOGY [place] | [address] | hypertension | | | | [address] | [place], [place] | (Primary Dx); | | | | [address] | [address] | Obstructive sleep | | | | [place] | | apnea (adult) | | | | [address] | | (pediatric) | | | | [phone] | | | +--------+---------+ + + + Social History + + + +--------+ + | Tobacco Use | Types | Packs/Day | Years | Date | | | | | Used | | + + + +--------+ + | Former Smoker | Cigarettes | 0.5 | 40 | Quit: 08/29/2019 | + + + +--------+ + + +---+---+---+ | Smokeless Tobacco: | | | | | Never Used | | | | + +---+---+---+ + + | Comments: Vapes Currently - 6% tobacco | + + + + +---------+ + | Alcohol Use | Drinks/Week | oz/Week | Comments | + + +---------+ + | Not Currently | | | quit 30 years ago | | | | | (1989) | + + +---------+ + + + + | Sex Assigned at | Date Recorded | | | | + + + | Not on file | | + + + documented as of this encounter Last Filed Vital Signs + + + + + | Vital Sign | Reading | Time Taken | Comments | + + + + + | Blood Pressure | 90/56 | 09/05/2019 1:52 PM | | | | | PST | | + + + + + | Pulse | 70 | 09/05/2019 1:52 PM | | | | | PST | | + + + + + | Temperature | - | - | | + + + + + | Respiratory Rate | - | - | | + + + + + | Oxygen Saturation | 97% | 09/05/2019 1:52 PM | | | | | PST | | + + + + + | Inhaled Oxygen | - | - | | | Concentration | | | | + + + + + | Weight | 82.1 kg (181 lb) | 09/05/2019 1:52 PM | | | | | PST | | + + + + + | Height | 170.2 cm (5' 7") | 09/05/2019 1:52 PM | | | | | PST | | + + + + + | Body Mass Index | 28.35 | 09/05/2019 1:52 PM | | | | | PST | | + + + + + documented in this encounter Progress Notes Jakub Fox MD - 09/05/2019 3:30 PM PSTFormatting of this note might be different f rom the original. Date of visit: 09/05/2019 Primary Care Physician: Tate Hoff CHIEF COMPLAINT: Chief Complaint Patient presents with Follow-up HISTORY OF PRESENT ILLNESS: Srini is 54 y.o. here for follow up visit and pre-op risk assessment. Has cervical spine surgery scheduled. Denies any chest pain or shortness of breath. Continues to walk at least 5K steps a day. Denies any chest pain or shortness of breath. Previous HPI: Had an evaluation with ECG stress test that was asymptomatic, however minimal st depression in the inferolateral leads. Has history of hypertension which is treated. History of chronic pancreatitis due to previo us history of alcohol. Pattient had in [place] coronary angiogram was done, reported with normal coronaries. Past medical history, SH, FH, and medications were reviewed in the chart. Medications: Outpatient Encounter Medications as of 09/05/2019 Medication Sig Dispense Refill Koiazgg-Neugcy-Cuzpnqkl (PANCRELIPASE 49815 PO) Take 1 capsule by mouth. cycrcxq-bjrcjb-hmgirbuc (ZENPEP) 84,000-20,000-63,000 units per capsule Take 1 capsule by mouth 3 (three) times daily. aspirin 81 mg EC tablet Take 81 mg by mouth Daily. atorvaSTATin (LIPITOR) 20 mg tablet Take 20 mg by mouth Daily. busPIRone (BUSPAR) 10 MG tablet Take 10 mg by mouth 3 times daily. dicyclomine (BENTYL) 20 MG tablet Take 1 tablet by mouth 4 times daily. icosapent ethyl (VASCEPA) 1 g capsule Take 1 mg by mouth 2 (two) times daily. levalbuterol (XOPENEX HFA) 45 mcg/puff inhaler Inhale 45 mcg into the lungs 2 (two) caro es daily. geslsv-beihtnte-jhgnmjm (PANCREAZE 21) 21,000-54,700-83,900 units per capsule Take 1 ca psule by mouth Daily. lisinopril (PRINIVIL, ZESTRIL) 10 mg tablet Take 10 mg by mouth daily. metoprolol succinate (TOPROL-XL) 25 mg 24 hr tablet TAKE 1 TABLET BY MOUTH ONCE DAILY. NOTICE STRENGTH CHAGNE Misc. Devices (QUAD CANE) MISC Cane wood 8 ball handle black, requires for safe in home mobility naproxen (NAPROSYN) 500 mg tablet TAKE 1 TABLET BY MOUTH EVERY 12 HOURS NEEDED WITH FOOD OR MILK nitroglycerin (NITROSTAT) 0.[address] 1 TABLET UNDER TONGUE EVERY 5 MIN IF N EEDED FOR CHEST PAIN UP TO 3DOSES, CALL 911 IF NO RELIEF ondansetron (ZOFRAN ODT) [address] 4 mg under the tongue daily a s needed. pantoprazole (PROTONIX) 40 mg tablet Take 40 mg by mouth daily. sertraline (ZOLOFT) 100 mg tablet Take 100 mg by mouth every evening. simvastatin (ZOCOR) 20 mg tablet Take 20 mg by mouth nightly. sucralfate (CARAFATE) 1 g tablet Take 1 g by mouth 4 times daily. tiZANidine (ZANAFLEX) 2 MG tablet Take 2 mg by mouth 2 times daily. No facility-administered encounter medications on file as of 09/05/2019. Allergies Allergies Allergen Reactions Cat Hair Extract Anaphylaxis Swelling in eyes, nose, throat, body, Difficulty breathing. Cyclobenzaprine Anaphylaxis and Shortness Of Breath Penicillins Anaphylaxis Baclofen Other (See Comments), Rash and Swelling Almost had a stroke Diclofenac Other (See Comments) Muscles and everything tense up Patch. Patient reports going into shock Pollen Extract Unknown Sulfamethoxazole-Trimethoprim Headache REVIEW OF SYSTEMS: Constitutional: negative for fatigue. No fever, chills, and rigors. No report of weight ch kale. HEENT: Negative for nosebleeds, ear discharge, nasal congestion or soar throat. Eyes: Wears glasses, no redness, or secretion. Respiratory: Negative for cough, sputum production, hemoptysis, wheezing. Cardiovascular: as HPI. Gastrointestinal: Negative for nausea, vomiting, diarrhea, abdominal pain and blood in stoo l. Genitourinary: Negative for dysuria or hematuria. Musculoskeletal: chronic arthritic pain uses a cane. Skin: Negative for rash. Neurological: Negative for dizziness. No numbness. No recent falls. No slurred speech. Hematological: No significant bruising. Psychiatric/Behavioral: No depression or anxiety. PHYSICAL EXAM Vital Signs: BP 90/56 | Pulse 70 | Ht 1.702 m (5' 7") | Wt 82.1 kg (181 lb) | SpO2 97% | BMI 28.35 kg/m GENERAL APPEARANCE: Alert, oriented, cooperative, no distress, appears stated age. HEENT: Extraocular movements were intact. No jaundice. Pupiles round and reactive. NECK: No JVD, lymphadenopathy. Carotid upstrokes normal. No carotid bruit heard. CARDIAC: Regular rhythm and rate. There is normal S1 and S2. No galop. No murmur. CHEST: Normal bilateral symmetrical chest excursion.ackles or wheezing. No evidence of dull ness. ABDOMEN: Soft.No tenderness or guarding. No palpable organs. Active bowel sounds. EXTREMITIES: No lower extremities edema, cyanosis or clubbing. NEURO: Alert and oriented times three with no focal deficit. Cranial nerves are grossly no rmal. SKIN: Warm and dry. No rash. Psych: Normal affect and mood. DATA 08/27/2018 Cholesterol 174, triglycerides 158. 03/27/2018 WBC 10.8, hemoglobin 14.8, platelets 268. There is, potassium 4.3, chloride 103, bicarbonat e 23, BUN 12, creatinine 0.89. AST 15, AST 8, alk phos 100. Total cholesterol 268, triglycerides 124, HDL 36. LDL could not be calculated. No results found for: NA, K, CO2, BUN, CREA, CALCIUM, MG No results found for: WBC, HGB, HCT, MCV, LABPLAT No results found for: ALT, CHOL, TRIG, HDL, LDLEX, GLUF, TSH EC09/05/2018 Ordered and reviewed by myself showed normal sinus rhythm normal EKG. 09/13/2018 Reviewed by your with possible right atrial enlargement otherwise normal EKG. Last Echo: Last Stress test: 03/27/2018 Kaden protocol 10.10 METS, 7 minutes and 28 seconds of exercise. 90% of maximal age-predict ed HR. Minimal ST depression in the inferolateral leads. Last Cath: Last US carotid: ASSESSMENT: Patient is 53 y.o. with 1. Pre-Op risk assessment for moderate risk surgery. 2. Hypertension blood pressure is controlled. 3. Chronic pancreatitis. 4. History of remote alcohol. 5. Hypertriglyceridemia. Plan: Patient is scheduled for moderate risk surgery, patient is active more than 4 METS. Can proceed with no required pre-op testing. Continue with lisinopril and Icosapent. Will continue to follow up as needed. *This report has been prepared using a voice recognition system. The report was reviewed fo r accuracy, however, sound-alike word errors, addition and/or deletions may occur. If there is any question about this report please contact me. Jakub Fox MD, MPH documented in this encounter Plan of Treatment Not on filedocumented as of this encounter Procedures + +--------+ + + + | Procedure Name | Priori | Date/Time | Associated Diagnosis | Comments | | | ty | | | | + +--------+ + + + | ECG 12 LEAD | Routin | 09/05/2019 | Essential | Results for this | | | e | 2:02 PM | hypertension | procedure are in the | | | | PST | | results section. | + +--------+ + + + documented in this encounter Results ECG 12 lead (09/05/2019 2:02 PM PST) + + + + + + | Component | Value | Ref Range | Performed | Pathologist | | | | | At | Signature | + + + + + + | VENTRICULAR | 62 | BPM | [facility] | | | RATE EKG | | | | | + + + + + + | ATRIAL RATE | 62 | BPM | [facility] | | + + + + + + | P-R | 146 | ms | [facility] | | | INTERVAL | | | | | + + + + + + | QRS | 102 | ms | [facility] | | | DURATION | | | | | + + + + + + | Q-T | 412 | ms | [facility] | | | INTERVAL | | | | | + + + + + + | Q-T | 418 | ms | [facility] | | | INTERVAL | | | | | | (CORRECTED) | | | | | + + + + + + | P WAVE AXIS | 79 | degrees | [facility] | | + + + + + + | QRS AXIS | 67 | degrees | [facility] | | + + + + + + | T AXIS | 70 | degrees | [facility] | | + + + + + + | INTERPRETAT | Normal sinus | | [facility] | | | ION TEXT | rhythmIncomplete right | | | | | | bundle branch | | | | | | blockBorderline ECGWhen | | | | | | compared with ECG of | | | | | | 13-SEP-2018 15:18,No | | | | | | significant change was | | | | | | foundConfirmed by | | | | | | Jakub Fox MD | | | | | | ([id number]) on 09/06/2019 | | | | | | 1:55:58 PM | | | | + + + + + + + + | Specimen | + + | | + + + + + | Narrative | Performed At | + + + | | | + + + + +---------+ + + | Performing | Address | City/State/Zipcode | Phone Number | | Organization | | | | + +---------+ + + | [facility] | | | | + +---------+ + + documented in this encounter Visit Diagnoses + + | Diagnosis | + + | Essential hypertension - Primary Unspecified essential hypertension | + + | Obstructive sleep apnea (adult) (pediatric) | + + documented in this encounter
--- OUTSIDE RECORDS SUMMARY | ~2020-04-03 | XMS | Encounter Summary ---
Demographics + + + | Address | [address] | | | [place] [address] | + + + | Home Phone | | + + + | Preferred Language | Unknown | + + + | Marital Status | Legally | + + + | Anglican Affiliation | 1013 | + + + | Race | Unknown | + + + | Ethnic Group | Unknown | + + + Author + + + | Author | [facility] | | | and [place] | + + + | Organization | [facility] | | | and [...] Team Providers + +------+ + | Care Social Work Program Coordinator Name | Role | Phone | + +------+ + | Tate Hoff | PCP | | + +------+ + Reason for Visit + +--------+ + | Reason | Onset | Comments | | | Date | | + +--------+ + | Medical Clearance | 09/26/ | | | | 2020 | | + +--------+ + Encounter Details +--------+ + + + + | Date | Type | Department | Care Team | Description | +--------+ + + + + | 09/26/ | Telephone | [facility] | Girish Cleveland | Medical Clearance | | 2019 | | [address] | MD Carissa [address] | | | | | [address] | [address] [place] | | | | | [place], [place] | [place] [address] | | | | | [address] | [phone] | | | | | [phone] | | | +--------+ + + + + Social History + + + +--------+ + | Tobacco Use | Types | Packs/Day | Years | Date | | | | | Used | | + + + +--------+ + | Former Smoker | E-Cigarettes | 0.5 | 39 | Quit: 08/29/2019 | + + + +--------+ + + +---+---+---+ | Smokeless Tobacco: | | | | | Never Used | | | | + +---+---+---+ + + | Comments: Vaping flavor, no nicotine | + + + + +---------+ + [...] + + documented as of this encounter Miscellaneous Notes Telephone Encounter - Deya Joyce Beam Builder - 09/26/2019 4:07 PM PSTMedical c drea received from patient's PCP. Attached to surgery orders. elephone Encounter - Danial Joyce ra, Medical Assistant - 09/26/2019 3:08 PM PSTCalled Family Medicine and spoke with Medic al Records Department. I requested medical clearance notes to be sent to our office. Electro nically signed by Ning Colunga at 09/26/2019 3:10 PM PSTdocumented in this encounter Plan of Treatment Not on filedocumented as of this encounter Visit Diagnoses Not on filedocumented in this encounter"
--- OUTSIDE RECORDS SUMMARY | ~2020-04-03 | XMS | Encounter Summary ---
Demographics + + + | Address | [address] | | | [place] [address] | + + + | Home Phone | | + + + | Preferred Language | Unknown | + + + | Marital Status | Legally | + + + | Shinto Affiliation | 1013 | + + + | Race | Unknown | + + + | Ethnic Group | Unknown | + + + Author + + + | Author | [facility] | | | and [place] | + + + | Organization | [facility] | | | and [...] Team Providers + +------+ + | Care Aerospace Quality Engineer Name | Role | Phone | + +------+ + | Tate Hoff | PCP | | + +------+ + Encounter Details +--------+ + + + + | Date | Type | Department | Care Team | Description | +--------+ + + + + | 08/10/ | Orders Only | [facility] [place] | Jett Corado, | Neck pain (Primary | | 2019 | | NEUROSURGERY [address] | PA-C [address] | Dx) | | | | [address] | [address] [place] | | | | | [place], [place] | [place] [address] | | | | | [address] | [phone] | | | | | [phone] | | | +--------+ + + + + Social History + +-------+ +--------+------+ | Tobacco Use | Types | Packs/Day | Years | Date | | | | | Used | | + +-------+ +--------+------+ | Former Smoker | | | | | + +-------+ +--------+------+ + + | Comments: vapes | + + + + + | Sex Assigned at | Date Recorded | | | | + + + | Not on file | | + + + documented as of this encounter Plan of Treatment + +---------+--------+ + + | Name | Type | Priori | Associated Diagnoses | Order Schedule | | | | ty | | | + +---------+--------+ + + | XR Cervical Spine 4 | Imaging | Routin | Neck pain | Expected: | | or 5 Vws | | e | | 08/10/2019, Expires: | | | | | | 08/10/2020 | + +---------+--------+ + + documented as of this encounter Visit Diagnoses + + | Diagnosis | + + | Neck pain - Primary Cervicalgia | + + documented in this encounter"
--- OUTSIDE RECORDS SUMMARY | ~2020-04-03 | XMS | Encounter Summary ---
Demographics + + + | Address | [address] | | | [place] [address] | + + + | Home Phone | | + + + | Preferred Language | Unknown | + + + | Marital Status | Legally | + + + | Rastafarian Affiliation | 1013 | + + + | Race | Unknown | + + + | Ethnic Group | Unknown | + + + Author + + + | Author | [facility] | | | and [place] | + + + | Organization | [facility] | | | [...] Team Providers + +------+ + | Care Mechanical Test Engineer Name | Role | Phone | + +------+ + | Tate Hoff | PCP | | + +------+ + Reason for Visit + + + | Reason | Comments | + + + | Pain Management | preop EVENT DECORATOR AND DESIGNER | + + + Encounter Details +--------+ + + + + | Date | Type | Department | Care Team | Description | +--------+ + + + + | 01/30/ | Documentati | [facility] [place] | Girish Cleveland | Pain Management | | 2019 | on | [address] | MD Carissa [address] | (preop EVENT DECORATOR AND DESIGNER) | | | | [address] | [address] [place] | | | | | [place], [place] | [place] [address] | | | | | [address] | [phone] | | | | | [phone] | | | +--------+ + + + [...] + + documented as of this encounter Progress Notes Ana Laura Angel RN - 01/31/2020 12:31 PM PDTPDMP check r/t 02/01/[address] [place] PREOP MEDD=0 The following information was obtained from [email or web address] on 01/31/20. No results from [place] 3 month EVENT DECORATOR AND DESIGNER query No results from [facility] 3 month EVENT DECORATOR AND DESIGNER query documented in this enco unter Plan of Treatment Not on filedocumented as [...]
--- OUTSIDE RECORDS SUMMARY | ~2020-04-03 | XMS | Encounter Summary ---
Demographics + + + | Address | [address] | | | [place] [address] | + + + | Home Phone | | + + + | Preferred Language | Unknown | + + + | Marital Status | Legally | + + + | Moravian Affiliation | 1013 | + + + | Race | Unknown | + + + | Ethnic Group | Unknown | + + + Author + + + | Author | [facility] | | | and [place] | + + + | Organization | [facility] | | | and [...] Team Providers + +------+ + | Care Charter Coordinator Name | Role | Phone | + +------+ + | Tate Hoff | PCP | | + +------+ + Encounter Details +--------+ + + + + | Date | Type | Department | Care Team | Description | +--------+ + + + + | 08/14/ | Abstract | [facility] | Provider, | | | 2019 | | NEUROSURGERY [address] | [address] | | | | | [address] | [address]EE | | | | | [place] | [place] [address] | | | | | [address] | | | | | | [phone] | | | +--------+ + + + + Social History + + + +--------+ + | Tobacco Use | Types | Packs/Day | Years | Date | | | | | Used | | + + + +--------+ + | Former Smoker | Cigarettes | 0.5 | 40 | Quit: 08/22/2015 | + + + +--------+ + + +---+---+---+ | Smokeless Tobacco: | | | | | Never Used | | | | + +---+---+---+ + + | Comments: Vapes Currently | + + + + +---------+ + | Alcohol Use | Drinks/Week | oz/Week | Comments | + + +---------+ + | Not Currently | | | Quit 08/2015 | + + +---------+ + + + + | Sex Assigned at | Date Recorded | | | | + + + | Not on file | | + + + documented as of this encounter Plan of Treatment Not on filedocumented as of this encounter Visit Diagnoses Not on filedocumented in this encounter"
--- OUTSIDE RECORDS SUMMARY | ~2020-04-03 | XMS | Encounter Summary ---
Demographics + + + | Address | [address] | | | [place] [address] | + + + | Home Phone | | + + + | Preferred Language | Unknown | + + + | Marital Status | Legally | + + + | Orthodoxy Affiliation | 1013 | + + + | Race | Unknown | + + + | Ethnic Group | Unknown | + + + Author + + + | Author | [facility] | | | and [place] | + + + | Organization | [facility] | | | [...] Team Providers + +------+ + | Care Makeup Editor Name | Role | Phone | + +------+ + | Tate Hoff | PCP | | + +------+ + Encounter Details +--------+ + + + + | Date | Type | Department | Care Team | Description | +--------+ + + + + | 09/26/ | Orders Only | [facility] | Girish Cleveland | Chronic obstructive | | 2020 | | [address] | MD [facility] [address] | pulmonary disease, | | | | [address] | [address] [place] | unspecified COPD | | | | [place], [place] | [place] [address] | type (HCC) (Primary | | | | [address] | [phone] | Dx); Essential | | | | [phone] | | hypertension; | | | | | | Obstructive sleep | | | | | | apnea on CPAP; | | | | | | Chronic | | | | | | pancreatitis, | | | | | | unspecified | | | | | | pancreatitis type | | | | | | (HCC); | | | | | | Gastroesophageal | | | | | | reflux disease, | | | | | | esophagitis presence | | | | | | not specified; | | | | | | Hyperlipidemia, | | | | | | mixed | +--------+ + + + + Social [...] Not on filedocumented as of this encounter Results Basic Metabolic Panel (10/10/2019 1:52 PM PST) + + + + + + | Component | Value | Ref Range | Performed | Pathologist | | | | | At | Signature | + + + + + + | Na | 139 | 136 - 145 | [facility] | | | | | mmol/L | [facility] | | | | | | MED[facility] | | | | | | CENTER - | | | | | | LABORATORY | | + + + + + + | K | 4.5 | 3.4 - 5.1 | [facility] | | | | | mmol/L | [facility] | | | | | | MED[facility] | | | | | | CENTER - | | | | | | LABORATORY | | + + + + + + | Cl | 105 | 98 - 107 mmol/L | [facility] | | | | | | [facility] | | | | | | [facility] | | | | | | CENTER - | | | | | | LABORATORY | | + + + + + + | CO2 | 27 | 20 - 31 mmol/L | [facility] | | | | | | [facility] | | | | | | [facility] | | | | | | CENTER - | | | | | | LABORATORY | | + + + + + + | Anion Gap | 7 | 3 - 16 mmol/L | [facility] | | | | | | [facility] | | | | | | [facility] | | | | | | CENTER - | | | | | | LABORATORY | | + + + + + + | Glucose | 100 | 60 - 106 mg/dL | [facility] | | | | | | [facility] | | | | | | MEDICAL | | | | | | CENTER - | | | | | | LABORATORY | | + + + + + + | BUN | 15 | 9 - 23 mg/dL | [facility] | | | | | | [facility] | | | | | | MEDICAL | | | | | | CENTER - | | | | | | LABORATORY | | + + + + + + | Creatinine | 0.82 | 0.70 - 1.30 | [facility] | | | | | mg/dL | [facility] | | | | | | MEDICAL | | | | | | CENTER - | | | | | | LABORATORY | | + + + + + + | eGFR, | >60Comment: GLOMERULAR | >=60 | [facility] | | | non- | FILTRATION | mL/min/1.73m2 | [facility] | | | Ethiopian | RATE,ESTIMATED | | MEDICAL | | | | mL/min/1.25y9Ytuh than | | CENTER - | | [...] + + + + | Calcium | 9.6 | 8.7 - 10.4 | [facility] | | | | | mg/dL | [facility] | | | | | | MEDICAL | | | | | | CENTER - | | | | | | LABORATORY | | + + + + + + | BUN/Creatin | 18.3 | | [facility] | | | ine Ratio | | | [facility] | | [...] | + + + + + | [facility] | [address] | [place] | [phone] | | [facility] | | [address] | | | - LABORATORY | | | | + + + + + CBC with Differential (10/10/2019 1:52 PM PST) + + + + + + | Component | Value | Ref Range | Performed | Pathologist | | | | | At | Signature | + + + + + + | White Blood | 10.3 | 4.0 - 11.0 K/uL | [facility] | | | Cells | | | [facility] | | | | | | MEDICAL | | | | | | CENTER - | | | | | | LABORATORY | | + + + + + + | Red Blood | 4.62 | 4.30 - 5.70 | [facility] | | | Cells | | M/uL | [facility] | | | | | | MEDICAL | | | | | | CENTER - | | | | | | LABORATORY | | + + + + + + | Hemoglobin | 13.4 (L) | 13.5 - 18.0 | [facility] | | | | | g/dL | [facility] | | | | | | MEDICAL | | | | | | CENTER - | | | | | | LABORATORY | | + + + + + + | Hematocrit | 39.0 (L) | 40.0 - 51.0 % | [facility] | | | | | | [facility] | | | | | | MEDICAL | | | | | | CENTER - | | | | | | LABORATORY | | + + + + + + | MCV | 84.4 | 83.0 - 101.0 fL | [facility] | | | | | | [facility] | | | | | | MEDICAL | | | | | | CENTER - | | | | | | LABORATORY | | + + + + + + | MCH | 29.0 | 28.0 - 35.0 pg | [facility] | | | | | | [facility] | | | | | | MEDICAL | | | | | | CENTER - | | | | | | LABORATORY | | + + + + + + | MCHC | 34.4 | 32.0 - 36.0 | [facility] | | | | | g/dL | [facility] | | | | | | MEDICAL | | | | | | CENTER - | | | | | | LABORATORY | | + + + + + + | RDW-CV | 14.4 | <15.0 % | [facility] | | | | | | [facility] | | | | | | MEDICAL | | | | | | CENTER - | | | | | | LABORATORY | | + + + + + + | RDW-SD | 44.2 | 35.1 - 46.3 fL | [facility] | | | | | | [facility] | | | | | | MEDICAL | | | | | | CENTER - | | | | | | LABORATORY | | + + + + + + | Platelet | 221 | 140 - 440 K/uL | [facility] | | | Count | | | [facility] | | | | | | MEDICAL | | | | | | CENTER - | | | | | | LABORATORY | | + + + + + + | MPV | 9.0 | 6.5 - 12.4 fL | [facility] | | | | | | [facility] | | | | | | MEDICAL | | | | | | CENTER - | | | | | | LABORATORY | | + + + + + + | % | 52.3 | 45.0 - 82.0 % | [facility] | | | Neutrophils | | | [facility] | | | | | | MEDICAL | | | | | | CENTER - | | | | | | LABORATORY | | + + + + + + | % | 35.9 | 20.0 - 45.0 % | [facility] | | | Lymphocytes | | | [facility] | | | | | | MEDICAL | | | | | | CENTER - | | | | | | LABORATORY | | + + + + + + | % Monocytes | 6.8 | 4.0 - 12.0 % | [facility] | | | | | | [facility] | | | | | | MEDICAL | | | | | | CENTER - | | | | | | LABORATORY | | + + + + + + | % | 3.3 | 0.0 - 5.0 % | [facility] | | | Eosinophils | | | [facility] | | | | | | MEDICAL | | | | | | CENTER - | | | | | | LABORATORY | | + + + + + + | % Basophils | 1.0 | 0.0 - 1.0 % | [facility] | | | | | | [facility] | | | | | | MEDICAL | | | | | | CENTER - | | | | | | LABORATORY | | + + + + + + | % Immature | 0.7 (H)Comment: | 0.0 - 0.4 % | [...] + + + + | Absolute | 5.39 | 1.80 - 8.50 | [facility] | | | Neutrophils | | K/uL | [facility] | | | | | | MEDICAL | | | | | | CENTER - | | | | | | LABORATORY | | + + + + + + | Absolute | 3.69 (H) | 0.60 - 3.20 | [facility] | | | Lymphocytes | | K/uL | [facility] | | | | | | MEDICAL | | | | | | CENTER - | | | | | | LABORATORY | | + + + + + + | Absolute | 0.70 | 0.00 - 1.00 | [facility] | | | Monocytes | | K/uL | [facility] | | | | | | MEDICAL | | | | | | CENTER - | | | | | | LABORATORY | | + + + + + + | Absolute | 0.34 | 0.00 - 0.40 | [facility] | | | Eosinophils | | K/uL | [facility] | | | | | | MEDICAL | | | | | | CENTER - | | | | | | LABORATORY | | + + + + + + | Absolute | 0.10 | 0.00 - 0.10 | [facility] | | | Basophils | | K/uL | [facility] | | | | | | MEDICAL | | | | | | CENTER - | | | | | | LABORATORY | | + + + + + + | Absolute | 0.07 (H) | 0.00 - 0.03 | [facility] | | | Immature | | K/uL | [facility] | | | Granulocyte | | | MEDICAL | | | s | | | CENTER - | | | | | | LABORATORY | | + + + + + + | % nRBC | 0 | 0 - 2 per 100 | [facility] | | | | | WBCs | [facility] | | | | | | MEDICAL | | | | | | CENTER - | | | | | | LABORATORY | | + + + + + + | Absolute | 0.00 | 0.00 - 0.01 | [facility] | | | nRBC | | K/uL | [facility] | | | | | | [...] | + + + + + | [facility] | [address] | [place] | [phone] | | [facility] | | [address] | | | - LABORATORY | | | | + + + + + documented in this encounter Visit Diagnoses + + | Diagnosis | + + | Chronic obstructive pulmonary disease, unspecified COPD type (HCC) - Primary | + + | Essential hypertension Unspecified essential hypertension | + + | Obstructive sleep apnea on CPAP Obstructive sleep apnea (adult) (pediatric) | + + | Chronic pancreatitis, unspecified pancreatitis type (HCC) | + + | Gastroesophageal reflux disease, esophagitis presence not specified | + + | Hyperlipidemia, mixed Mixed hyperlipidemia | + + documented in this encounter"
--- OUTSIDE RECORDS SUMMARY | ~2020-04-03 | XMS | Encounter Summary ---
Demographics + + + | Address | [address] | | | [place] [address] | + + + | Home Phone [...] Team Providers + +------+ + | Care Wool Sampler Name | Role | Phone | + +------+ + | Tate Hoff | PCP | | + +------+ + Encounter Details +--------+ + + + + | Date | Type | Department | Care Team | Description | +--------+ + + + + | 08/10/ | Imaging | [facility] | Provider, | | | 2019 | Exam | [facility] | [address] | | | | | IMAGING [address] | [place] | | | | | [place] | [place] [address] | | | | | [place] [address] | | | | | | [phone] | | | +--------+ + + + [...] | + +--------+ + + + | MRI CERVICAL SPINE | Routin | 08/06/2019 | | Results for this | | WO CONTRAST | e | 12:00 AM | | procedure are in the | | | | PST | | results section. | + +--------+ + + + documented in this encounter Results MRI Cervical Spine wo Contrast (08/06/2019 12:00 AM PST) + + | Specimen | + + | | + + + + + | Narrative | Performed At | + + + | External films for comparison only | [facility] | | | | | No results will be in the chart. | | + + + + +---------+ + + | Performing | Address | City/State/Zipcode | Phone Number | | Organization | | | | + +---------+ + + | [facility] | | | | + +---------+ + + documented in this encounter Visit Diagnoses Not on filedocumented in this encounter"
--- OUTSIDE RECORDS SUMMARY | ~2020-04-03 | XMS | Encounter Summary ---
Demographics + + + | Address | [address] | | | [place] [address] | + + + | Home Phone | | + + + | Preferred Language | Unknown | + + + | Marital Status | Legally | + + + | Anabaptism Affiliation | 1013 | + + + | Race | Unknown | + + + | Ethnic Group | Unknown | + + + Author + + + | Author | [facility] | | | and [place] | + + + | Organization | [facility] | | [...] Team Providers + +------+ + | Care Fruit Loader Machine Operator Name | Role | Phone | + +------+ + | Tate Hoff | PCP | | + +------+ + Reason for Visit + +--------+ + | Reason | Onset | Comments | | | Date | | + +--------+ + | Procedure | 02/20/ | Confirmation call for 02/25/20 Sx | | | 2020 | | + +--------+ + Encounter Details +--------+ + + + + | Date | Type | Department | Care Team | Description | +--------+ + + + + | 02/20/ | Telephone | [facility] | Girish Cleveland | Procedure | | 2020 | | [address] | MD Carissa [address] | (Confirmation call | | | | [address] | [address] [place] | for 02/25/20 Sx) | | | | [place] | [place] [address] | | | | | [address] | [phone] | | | | | [phone] | | | +--------+ + + + [...] this encounter Miscellaneous Notes Telephone Encounter - Kristin Shelton CMA - 02/21/2020 11:29 AM PDTAll presurgical check-in i nstructions given Surgery date: 02/25/20 Check-in Time: 155p (OR Schedule states procedure start time 355p) No solids or liquids after midnight the night before surgery. Follow the cleansing instructions provided beginning the night before surgery after you rashawn wer or bathe. No showering the morning of surgery. Please do not wear jewelry, contact lenses, nail east tim[place] (on fingers or toes), or make-up to surgery check-in. If you have dentures, hearing aids, or glasses please bring the cases with you to check-in. Medications instructions: Aspirin and naproxen-hold 7 days prior to surgery Lisinopril-hold 24 hrs prior to surgery Surgical Admit Anticipated Disposition reviewed and correct: yes Confirmation of procedure/approval: yes Has patient been seen in the ED or had surgery since last seen in our office?: no Confirm local pharmacy: [facility] documented in this enco unter Plan of [...]
--- OUTSIDE RECORDS SUMMARY | ~2020-04-03 | XMS | Encounter Summary ---
Demographics + + + | Address | [address] | | | [place] [address] | + + + | Home Phone | | + + + | Preferred Language | Unknown | + + + | Marital Status | Legally | + + + | Latter-Day Affiliation | 1013 | + + + | Race | Unknown | + + + | Ethnic Group | Unknown | + + + Author + + + | Author | [facility] | | | and [place] | + + + | Organization | [facility] | | [...] Team Providers + +------+ + | Care Automation Software Engineer Name | Role | Phone | + +------+ + | Tate Hoff | PCP | | + +------+ + Reason for Visit + +--------+ + | Reason | Onset | Comments | | | Date | | + +--------+ + | Results, Critical | 10/11/ | MRSA swab positive | | | 2020 | | + +--------+ + Encounter Details +--------+ + + + + | Date | Type | Department | Care Team | Description | +--------+ + + + + | 10/11/ | Telephone | [facility] | Girish Cleveland | Results, Critical | | 2019 | | [address] Elissa Ferrer MD [address] | (MRSA swab positive) | | | | [address] | [address] [place] | | | | | [place] | [place] [address] | | | | | [address] | [phone] | | | | | [phone] | | | +--------+ + + + [...] Encounter - Ana Laura Angel RN - 10/25/2019 12:45 PM PSTPatient cancelled surgery. He was advised to complete the mupirocin as instructed. When he decides to reschedule, we w ill reswab to check status of MRSA. 1 2:46 PM PSTTelephone Encounter - Ana Laura Angel RN - 10/23/2019 10:16 AM PSTSpoke with donell singleton and discussed the mupirocin and surgery rescheduling. Dr Cleveland said his surgery is on h old for now. I advised to continue the mupirocin as ordered. He is scheduled for preop and will be reswabbed at that time. He was advised that medications he was previously adv ised to hold could be resumed but needed to be stopped according to when his surgery was res cheduled. He verbalized understanding.Electronically signed by Ana Laura Angel RN at 0 10:19 AM PSTTelephone Encounter - Ana Laura Angel RN - 10/22/2019 3:12 PM PSTDiscussed sit uation with Dr Cleveland. He said we need to tell the patient he tested positive for MRSA and wanted the mupirocin prescription started now. Will call in to his pharmacy. He said we need to retest him before doing surgery and then he would reevaluate with the patient if he want ed to take the risk of an elective surgery if he is severely colonized with MRSA. Advised patti daly that he tested positive on his nasal swab done at his preadmission exam. Explained he was colonized, but didn't have an active infection, but Dr Cleveland wanted him to have the mu pirocin nasal ointment per the optional protocol at [facility] to start today and then we would r etest and if still positive, he would discuss if the patient still wanted to proceed. He rahul balized understanding. Called a prescription for Mupirocin 2% apply to bilateral nostrils twice daily for 8 days t briana Abdi in [place]. Spoke with Joyce.Electronically signed by Ana Laura Angel RN at 0 10/22/2019 3:49 PM PSTTelephone Encounter - Jett Corado PA-C - 10/11/2019 1:33 PM PS TMy old supervising physicians felt that this was a protocol instituted by the hospital and not managed by neurosurgery. Since this is a hospital protocol we will allow them to instit iliamna their designated response to the positive MRSA screening; and less Dr. Cleveland would lik e to manage this differently. elephone Encounter - Ana Laura Angel RN - 10/11/2019 9:11 AM PSTReceived call fr angelina Jordan in lab. He reports a 4+ MRSA positive swab screening. Notified Varsha Beard in I nfection Prevention. Will change the surgical antibiotic per protocol and add contact precau tions with surgery orders. Will follow up on the infection banner. Did you want to order the mupirocin preop or just proceed with 3M nasal antiseptic protocol in [facility] on day of surgery? Please advise.Electronically signed by Ana Laura Angel RN at 2019 9:30 AM PSTdocumented in this encounter Plan of Treatment [...]
--- OUTSIDE RECORDS SUMMARY | ~2020-04-03 | XMS | Clinical Summary ---
Demographics + + + | Address | [address] | | | [place] [address] | + + + | Home Phone | | + + + | Preferred Language | Unknown | + + + | Marital Status | Legally | + + + | Buddhism Affiliation | 1013 | + + + | Race | Unknown | + + + | Ethnic Group | Unknown | + + + Author + + + | Author | [facility] | | | and [place] | + + + | Organization | [facility] | | [...] Team Providers + +------+ + | Care Logger Driving Horses Name | Role | Phone | + [...] | 01/2 | | Activ | | [id number] | mouth 3 (three) | | | [...] Overview: 10/30/2003: Upper Endoscopy Biopsy, Dr. Castillo [facility]: | | "Hiatal hernia, distal esophagitis [...] Overview: Overview: | | Overview: | | 10/24/14- narcotic agreement and ameritox [...] | + +---+ + + | Overview: [place] [facility] 11/2017:ABDOMEN and PELVIS: Left | | [...] + + + | Overview: CT chest [facility] 02/23/11: "IMPRESSION: There are | | multiple bilateral pulmonary nodules. They are uncalcified and | | they range in size from a few millimeters to 0.7 cm. They are | | most likely sequela of previous granulomatous disease. A repeat | | noncontrast CT scan of the chest in three months is | | recommended."05/24/11 CT [facility]: IMPRESSION: Stable bilateral | | pulmonary [...] | | | | | | (DOS MANAGER DATABASE ADMINISTRATION)) | +--------+ + + + + | 02/20/ | Clinical | Immediate Care | Girish Salter | Preop testing | 2019 | Support | | [facility] | | +--------+ + + + + | 02/20/ | Telephone | Neurosurgery | Girish Cleveland | Procedure | 2019 | | | MD Carissa | (Confirmation call | | | | | | for 02/25/20 Sx) | +--------+ + + + + | 02/14/ | Telephone | Case Management | Ashely Sanchez | Case Management (pre | 2019 | | | RN | discharge planning) | +--------+ + + + + | 01/31/ | Preadmit | Pre-Admission | Girish Cleveland | Essential | 2019 | Visit | Testing | MD Carissa | hypertension; | | | | | | Chronic | | | | | | pancreatitis, | | | | | | unspecified | | | | | | pancreatitis type | | | | | | ([facility]); | | | | | | Hyperlipidemia, [...] on | | MD Carissa | (preop MANAGER DATABASE ADMINISTRATION) | +--------+ + + + + | 01/09/ | Orders Only | Neurosurgery | Girish Cleveland | Preop testing | 2019 | | | MD Carissa [...] | + + + + + | Med Mgmt: Vit D | | | | | | 4 | | | + + + + + | Medication | | | | | Management | 4 | | | + + [...] | + + + + + | Med Mgmt: BUN | | 02/01/20 | | | | 1 | 20, | | | | | 10/10/19 | | | | | 20 | | + + + + + | Med Mgmt: Cr | | 02/01/20 | | | | 1 | 20, | | | | | 10/10/19 | | | | | 20 | | + + + + + | Med Mgmt: K | | 02/01/20 | | | | 1 | 20, | | | | | 10/10/19 | | | | | 20 | | + + + + + [...] + + | Performed at: 01 - [email or web address] [place] [address], [place], [place] | REFERENCE LAB | | [id number] Electromechanisms Design Drafter: Dionicio Gibbs MD, Phone: [phone] | [facility] | + + + + + + + + | Performing | Address | City/State/Zipcode | Phone Number | | Organization | | | | + + + + + | REFERENCE LAB | [address] | [place], [place] | [phone] | | [facility] | [address] | [address] | | + + + + + [...] | chromogenic agar method. | | [facility] | | | [...] [address] | [place] | [phone] | | [facility] | | [address] | | | - LABORATORY | | [...] | 0.00 | 0.00 - 0.01 | [facility] | | | nRBC | | K/uL | [facility] | | | | [...] + + | [facility] | [address] | [place] | [phone] | | [facility] | | [address] | | | - LABORATORY | | [...] 12 | 9 - 23 mg/dL | [facility] | | | | | | [facility] | | | | | | MEDICAL | | | | | | CENTER - | | | | | | LABORATORY | | + + + + + + | Creatinine | 0.83 | 0.70 - 1.30 | [facility] | | | | | mg/dL | [facility] | | | | | | MEDICAL | | | | | | CENTER - | | | | | | LABORATORY | | + + + + + + | eGFR, | >60Comment: GLOMERULAR | >=60 | [facility] | | | non- | FILTRATION | mL/min/1.73m2 | [facility] | | | [place]er | RATE,ESTIMATED | | MEDICAL | | | | mL/min/1.90p0Rccv than | | CENTER - | | [...] | | | | mg/dL | [facility] | | | | [...] + | [facility] | [address] | [place] | [phone] | | [facility] | | [address] | | | - LABORATORY | | [...] +--------+ +---------+--------+ | MEDICARE | MEDICA | [id number] | 11/21/19 | [phone] | | Medica | | | RE | | 02-Pre | 5 | | re | | | PART A | | sent | | | | | | AND B | | | | | | + +--------+ +--------+ +---------+--------+ | MEDICARE | MEDICA | [id number] | 11/21/19 | [phone] | | Medica | | | RE | | 02-Pre | 5 | | re | | | PART A | | sent | | | | | | AND B | | | | | | + +--------+ +--------+ +---------+--------+ | [employer] | MODA | [id number] | 08/23/19 | [phone] | | Medica | | MEDICAID HMO | HEALTH | | 20-Pre | 1 | | id | | | MDCD | | sent | | | | | | HMO [place] | | | | | | + +--------+ +--------+ +---------+--------+ | [employer] | [employer] | [id number] | 08/22/19 | [phone] | | Medica | | MEDICAID HMO [...] Self | [birth year] | [address] | | | al/Fam | | 1964 | [phone] | [address] [place], | | | [place] | | | [address] (Home) | [place] [address] | + +--------+ +--------+ + + | Srini Johnson Ray | Person | Self | [birth year] | [address] | | | al/Fam | | 1964 | [address] | [address] [place], | | | [place] | | | [address] (Home) | [place] [address] | + +--------+ +--------+ + + Advance Directives + + + + + | Type | Date Recorded | Patient | Explanation | | | | Intelligence Officer | | + + + + + | Power of | | | | | Curriculum Consultant | | | | + + + + + | Advance | | | | | Directive | | | | + + + + +
--- OUTSIDE RECORDS SUMMARY | ~2020-04-03 | XMS | Encounter Summary ---
Demographics + + + | Address | [address] | | | [place] [address] | + + + | Home Phone | | + + + | Preferred Language | Unknown | + + + | Marital Status | Legally | + + + | Voodoo Affiliation | 1013 | + + + | Race | Unknown | + + + | Ethnic Group | Unknown | + + + Author + + + | Author | [facility] | | | and [place] | + + + | Organization | [facility] | | | and [...] Team Providers + +------+ + | Care Diesel Scoop Operator Name | Role | Phone | + +------+ + | Tate Hoff | PCP | | + +------+ + Encounter Details +--------+ + + + + | Date | Type | Department | Care Team | Description | +--------+ + + + + | 09/03/ | Orders Only | [facility] | Girish Cleveland | Adjacent segment | | 2019 | | [address] | MD Carissa [address] | disease with spinal | | | | [address] | [address] [place] | stenosis (Primary | | | | [place], [place] | [place] [address] | Dx); Cervical | | | | [address] | [phone] | myelopathy (HCC) | | | | [phone] | | | +--------+ + + + [...] myelopathy | + + documented in this encounter"
--- OUTSIDE RECORDS SUMMARY | ~2020-04-03 | XMS | Encounter Summary ---
Demographics + + + | Address | [address] | | | [place] [address] | + + + | Home Phone | | + + + | Preferred Language | Unknown | + + + | Marital Status | Legally | + + + | Holiness Affiliation | 1013 | + + + | Race | Unknown | + + + | Ethnic Group | Unknown | + + + Author + + + | Author | [facility] | | | and [place] | + + + | Organization | [facility] | | | [...] Team Providers + +------+ + | Care Professor Of Languages Name | Role | Phone | + [...] + + | 09/26/ | Telephone | [facility] | Girish Cleveland | Medication Screening | | 2019 | | [address] | MD Carissa [address] | (NS medications to | | | | [address] | [address] [place] | stop prior to | | | | [place] | [place] [address] | surgery) | | | | [address] | [phone] | | | | | [phone] | | | +--------+ + + + [...] - 02/01/2020 10:22 AM PDTMedications reviewed by Roshan Shelton CMA, no changes. TTelephone Encounter - [...]
--- OUTSIDE RECORDS SUMMARY | ~2020-04-03 | XMS | Encounter Summary ---
Demographics + + + | Address | [address] | | | [place] [address] | + + + | Home Phone | | + + + | Preferred Language | Unknown | + + + | Marital Status | Legally | + + + | Restorationism Affiliation | 1013 | + + + | Race | Unknown | + + + | Ethnic Group | Unknown | + + + Author + + + | Author | [facility] | | | and [place] | + + + | Organization | [facility] | | | [...] Team Providers + +------+ + | Care Industrial/Organizational Psychologist Name | Role | Phone | + +------+ + | Tate Hoff | PCP | | + +------+ + Encounter Details +--------+ + + + + | Date | Type | Department | Care Team | Description | +--------+ + + + + | 09/13/ | Orders Only | [facility] | Conversion | | | 2019 | | CONVERSION DEP [address] | Transaction, | | | | | RICHARD YANES | Provider Unknown | | | | | [place] | [phone] | | | | | [address] | | | | | | [phone] | | | +--------+ + + + [...]
--- OUTSIDE RECORDS SUMMARY | ~2020-04-03 | XMS | Encounter Summary ---
Demographics + + + | Address | [address] | | | [place] [address] | + + + | Home Phone | | + + + | Preferred Language | Unknown | + + + | Marital Status | Legally | + + + | Lutheran Affiliation | 1013 | + + + | Race | Unknown | + + + | Ethnic Group | Unknown | + + + Author + + + | Author | [facility] | | | and [place] | + + + | Organization | [facility] | | [...] Team Providers + +------+ + | Care Catering Attendant Name | Role | Phone | + +------+ + | Tate Hoff | PCP | | + +------+ + Reason for Visit + + + | Reason | Comments | + + + | Pain Management | Preop (DIRECTOR OF ANCILLARY SERVICES) | + + + Encounter Details +--------+ + + + + | Date | Type | Department | Care Team | Description | +--------+ + + + + | 10/09/ | Documentati | [facility] [place] | Girish Cleveland | Pain Management | | 2019 | on | [address] | MD Carissa [address] | (Preop (DIRECTOR OF ANCILLARY SERVICES)) | | | | [address] | [address] [place] | | | | | [place], [place] | [place] [address] | | | | | [address] | [phone] | | | | | [phone] | | | +--------+ + + + [...] Progress Notes Ana Laura Angel RN - 10/09/2019 7:31 AM PSTPMP check r/t 10/10/19 Preop appointment with Jett Corado PREOP MEDD= 15 The following information was obtained from [email or web address]/myAccess/saw/select .do on 10/09/19. No results from [place] 3 month DIRECTOR OF ANCILLARY SERVICES query Results from [facility] 3 month DIRECTOR OF ANCILLARY SERVICES query Last filled 09/26/19 percocet 5/325 #30 (15 day supply by PCP) documented in this enco unter Plan of Treatment Not on filedocumented as of this encounter Visit Diagnoses Not on filedocumented in this encounter"
--- OUTSIDE RECORDS SUMMARY | ~2020-04-03 | XMS | Encounter Summary ---
Demographics + + + | Address | [address] | | | [place] [address] | + + + | Home Phone [...] + + + | Author | [facility] | | | and [place] | + + + | Organization | [facility] | | [...] Team Providers + +------+ + | Care Street Light Servicer Name | Role | Phone | + +------+ + | Tate Hoff | PCP | | + +------+ + Reason for Visit +---------+--------+ + | Reason | Onset | Comments | | | Date | | +---------+--------+ + | Imaging | 08/23/ | Ask for images from [facility] and let patient know if | | | 2020 | we need any others completed. | +---------+--------+ + Encounter Details +--------+ + + + + | Date | Type | Department | Care Team | Description | +--------+ + + + + | 08/23/ | Telephone | [facility] [place] | Girish Cleveland | Imaging (Ask for | | 2020 | | NEUROSURGERY [address] | MD Carissa [address] | images from St | | | | [address] | [address] [place] | Timo and let | | | | [address] [address] | [place] [address] | patient know if we | | | | [address] | [phone] | need any others | | | | [phone] | | completed. ) | +--------+ + + + + Social [...] this encounter Miscellaneous Notes Telephone Encounter - Corinna Finley, Meat Cutting Block Repairer - 08/24/2019 9:08 AM PSTImaging o jatinder Chandra TTelephone Encounter - Kristin Shelton CMA - 08/23/2019 10:41 AM PSTCalled [facility] to [facility] compl eted [facility], patient has not had cervical x-rays. Called to inform him that we would need th ose prior to the appointment. Patient will go to [facility] today to complete these. Orders faxed.E lectronically signed by Kristin Shelton CMA at 08/23/2019 10:46 AM PSTTelephone Encounter - Cynthia Connolly - 08/23/2019 9:55 AM PSTPatient had xrays in [facility] it included the neck with multiple views. Same day as the MRI. Can we please request those and let him know if we need anything else. documented in this encounter Plan of Treatment Not on filedocumented as of this encounter Visit Diagnoses Not on filedocumented in this encounter"
--- OUTSIDE RECORDS SUMMARY | ~2020-04-03 | XMS | Encounter Summary ---
Demographics + + + | Address | [address] | | | [place] [address] | + + + | Home Phone | | + + + | Preferred Language | Unknown | + + + | Marital Status | Legally | + + + | Anabaptism Affiliation | 1013 | + + + | Race | Unknown | + + + | Ethnic Group | Unknown | + + + Author + + + | Author | [facility] | | | and [place] | + + + | Organization | [facility] | | [...] Team Providers + +------+ + | Care Banquet Manager Name | Role | Phone | + +------+ + | Tate Hoff | PCP | | + +------+ + Encounter Details +--------+ + + + + | Date | Type | Department | Care Team | Description | +--------+ + + + + | 10/21/ | Orders Only | [facility] | Girish Cleveland | Essential | | 2020 | | [address] | J, MD [address] | hypertension | | | | [address] | [address] [place] | (Primary Dx); | | | | [place], [place] | [place] [address] | Chronic | | | | [address] | [phone] | pancreatitis, | | | | [phone] | | unspecified | | | | | | pancreatitis type | | | | | | (HCC); | | | | | | Hyperlipidemia, | | | | | | mixed; | | | | | | Gastroesophageal | | | | | | reflux disease, | | | | | | esophagitis presence | | | | | | not specified | +--------+ + + + + Social [...] on filedocumented as of this encounter Results Culture, MRSA (02/01/2020 9:41 AM PDT) + [...] | + + + + + | [facility] | [address] | [place] | [phone] | | [facility] | | [address] | | | - LABORATORY | | [...] | | | Cells | | | [facility] | | [...] ST. | [address] | [place] | [phone] | | [facility] | | [address] | | | - LABORATORY | | [...] | | | | | mg/dL | [facility] | | | | | | MEDICAL | | | | | | CENTER - | | | | | | LABORATORY | | + + + + + + | eGFR, | >60Comment: GLOMERULAR | >=60 | [facility] | | | non- | FILTRATION | mL/min/1.73m2 | [facility] | | | Lebanese | RATE,ESTIMATED | | MEDICAL | | | | mL/min/1.02e3Pzeu than | | CENTER - | | [...] | | | | | mg/dL | [facility] | | | | | | MEDICAL | | | | | | CENTER - | | | | | | LABORATORY | | + + + + + + | BUN/Creatin | 14.5 | | [facility] | | | ine Ratio | | | [facility] | | [...] [address] | [place] | [phone] | | [facility] | | [address] | | | - LABORATORY | | | | + + + + + documented in this encounter Visit Diagnoses + + | Diagnosis | + + | Essential hypertension - Primary Unspecified essential hypertension | + + | Chronic pancreatitis, unspecified pancreatitis type (HCC) | + + | Hyperlipidemia, mixed Mixed hyperlipidemia | + + | Gastroesophageal reflux disease, esophagitis presence not specified | + + documented in this encounter [...]
--- OUTSIDE RECORDS SUMMARY | ~2020-04-03 | XMS | Encounter Summary ---
Demographics + + + | Address | [address] | | | [place] [address] | + + + | Home Phone | | + + + | Preferred Language | Unknown | + + + | Marital Status | Legally | + + + | Synagogue Affiliation | 1013 | + + + | Race | Unknown | + + + | Ethnic Group | Unknown | + + + Author + + + | Author | [facility] | | | and [place] | + + + | Organization | [facility] | | | [...] Team Providers + +------+ + | Care Transition Assistant Name | Role | Phone | + +------+ + | Tate Hoff | PCP | | + +------+ + Reason for Visit + +--------+ + | Reason | Onset | Comments | | | Date | | + +--------+ + | Procedure | 10/18/ | Pre Surgical Instructions | | | 2020 | | + +--------+ + Encounter Details +--------+ + + + + | Date | Type | Department | Care Team | Description | +--------+ + + + + | 10/18/ | Telephone | [facility] [place] | Girish Cleveland | Procedure (Pre | | 2019 | | [address] Elissa Ferrer MD [address] | Surgical | | | | [address] | [address] [place] | Instructions) | | | | [address] | [place] [address] | | | | | [address] | [phone] | | | | | [phone] | | | +--------+ + + + [...] this encounter Miscellaneous Notes Telephone Encounter - Benja Farrell, Pst Manager - 10/18/2019 12:37 PM PSTAll presurg ical check-in instructions given Surgery date: 10/22/2019 Check-in Time: 8:00AM (OR Schedule states procedure start time 10:00AM) No solids or liquids after midnight the night before surgery. Follow the cleansing instructions provided beginning the night before surgery after you rashawn wer or bathe. No showering the morning of surgery. Please do not wear jewelry, contact lenses, nail sierra leonean (on fingers or toes), or make-up to surgery check-in. If you have dentures, hearing aids, or glasses please bring the cases with you to check-in. Medications instructions: Aspirin and naproxen-hold 7 days prior to surgery Lisinopril-hold 24 hrs prior to surgery Surgical Admit Anticipated Disposition reviewed and correct: "Yes Confirmation of procedure/approval: "Yes". Has patient been seen in the ED or had surgery since last seen in our office?: NO Confirm local pharmacy: [facility] document ed in this encounter Plan of Treatment Not [...]
--- OUTSIDE RECORDS SUMMARY | ~2020-04-03 | XMS | Encounter Summary ---
Demographics + + + | Address | [address] | | | [place] [address] | + + + | Home Phone | | + + + | Preferred Language | Unknown | + + + | Marital Status | Legally | + + + | Taoism Affiliation | 1013 | + + + [...] Team Providers + +------+ + | Care Resident Surgeon Name | Role | Phone | + +------+ + | Tate Hoff | PCP | | + +------+ + Encounter Details +--------+ + + + + | Date | Type | Department | Care Team | Description | +--------+ + + + + | 01/09/ | Orders Only | [facility] | Girish Cleveland | Preop testing | | 2019 | | [address] MD Torsten [address] | (Primary Dx) | | | | [address] | [address] [place] | | | | | [place], [place] | [place] [address] | | | | | [address] | [phone] | | | | | [phone] | | | +--------+ + + + [...] on filedocumented as of this encounter Results Coronavirus (COVID-19) NAAT (02/21/2020 [...] + + | Performed at: 01 - [facility] [place] [address], [place], [place] | REFERENCE LAB | | [id number] Ed Special Education Teacher: Dionicio Gibbs MD, Phone: [phone] | [facility] | + + + + + + + + | Performing | Address | City/State/Zipcode | Phone Number | | Organization | | | | + + + + + | REFERENCE LAB | [address] | [place], [place] | [phone] | | [facility] | [facility] | [address] | | + + + + + documented in this encounter Visit Diagnoses + + | Diagnosis | + + | Preop testing - Primary Preoperative examination, unspecified | + + documented [...]
--- OUTSIDE RECORDS SUMMARY | ~2020-04-03 | XMS | Encounter Summary ---
Demographics + + + | Address | [address] | | | [place] [address] | + + + | Home Phone | | + + + | Preferred Language | Unknown | + + + | Marital Status | Legally | + + + | Islam Affiliation | 1013 | + + + [...] Providers + +------+ + | Care Director Supply Chain Name | Role | Phone | + +------+ + | Tate Hoff | PCP | | + +------+ + Encounter Details +--------+ + + + + | Date | Type | Department | Care Team | Description | +--------+ + + + + | 01/31/ | Preadmit | [facility] | Girish Cleveland | Essential | | 2020 | Visit | [facility] | J, MD [address] | hypertension; | | | | CLINIC [address] | [address] [place] | Chronic | | | | [place], [place] | [place] [address] | pancreatitis, | | | | [address] | [phone] | unspecified | | | | | [...] + + documented in this encounter Results Basic Metabolic Panel (02/01/2020 9:41 AM PDT) [...] | | | | | | [facility] | | | | | | [...] | non- | FILTRATION | mL/min/1.73m2 | [facility] | | | Nepalese | RATE,ESTIMATED | | MEDICAL | | | | mL/min/1.05x1Qnic than | | CENTER - | | [...] | | | | | mg/dL | [facility] | | | | | | [...] [address] | [place] | [phone] | | [facility] | | [address] | | | - LABORATORY | | [...] | | | Cells | | | . [facility] | | | | | | [...] | Preliminary studies have | | [facility] | | | s | indicated [...] | | Neutrophils | | K/uL | [facility] | | | | | | [...] | | Monocytes | | K/uL | [facility] | [...] | nRBC | | K/uL | [facility] | [...] [address] | Caryn RubinJOSE | [phone] | | [facility] | | [address] | | | - LABORATORY | | | | + + + + + Culture, MRSA (02/01/2020 9:41 AM PDT) + + + + + + | Component | Value | Ref Range | Performed | Pathologist | | | | | At | Signature | + + + + + + | Culture | Negative for MRSA by | | [facility] | | | | chromogenic agar method. [...] [address] | [place] | [phone] | | [facility] | | [address] | | | - LABORATORY | | | | + + + + + documented in this encounter Visit Diagnoses + + | Diagnosis | + + | Essential hypertension Unspecified [...]
--- OUTSIDE RECORDS SUMMARY | ~2020-04-03 | XMS | Encounter Summary ---
Demographics + + + | Address | [address] | | | [place] [address] | + + + | Home Phone | | + + + | Preferred Language | Unknown | + + + | Marital Status | Legally | + + + | Restorationism Affiliation | 1013 | + + + | Race | Unknown | + + + | Ethnic Group | Unknown | + + + Author + + + | Author | [facility] | | | and [place] | + + + | Organization | [facility] | | [...] Team Providers + +------+ + | Care Welder Tool And Die Name | Role | Phone | + [...] + | 08/21/ | Documentati | [facility] | Girish Cleveland | Pain Management | | 2019 | on | [address] | MD Carissa [address] | (intital encounter) | | | | [address] | [address] [place] | | | | | [address] [address] | [place] [address] | | | | | [address] | [phone] | | | | | [phone] | | | +--------+ + + + [...] pain medi cations. (medication strength, dose, frequency) [facility] DRILLER PORTABLE was checked on 08/21/19 and no medications have been dispensed in the last 3 months. documented in th is encounter Plan of Treatment Not on filedocumented as of this encounter Visit Diagnoses Not on filedocumented in this encounter"
--- OUTSIDE RECORDS SUMMARY | ~2020-04-03 | XMS | Encounter Summary ---
Demographics + + + | Address | [address] | | | [place] [address] | + + + | Home Phone | | + + + | Preferred Language | Unknown | + + + | Marital Status | Legally | + + + | Confucianism Affiliation | 1013 | + + + | Race | Unknown | + + + | Ethnic Group | Unknown | + + + Author + + + | Author | [facility] | | | and [place] | + + + | Organization | [facility] | | | [...] Team Providers + +------+ + | Care Highway Worker Name | Role | Phone | + +------+ + | Tate Hoff | PCP | | + +------+ + Encounter Details +--------+ + + + + | Date | Type | Department | Care Team | Description | +--------+ + + + + | 08/29/ | Imaging | [facility] | Provider, | | | 2020 | Exam | [facility] | [address] | | | | | IMAGING [address] | Demetrio MCKEE | | | | | [address] | [place] [address] | | | | | [place] [address] | | | | | | [phone] | | | +--------+ + + + [...] | + +--------+ + + + | XR CERVICAL SPINE 2 | Routin | 08/06/2019 | | Results for this | | OR 3 VIEWS | e | 12:05 AM | | procedure are in the | | | | PST | | results section. | + +--------+ + + + documented in this encounter Results XR Cervical Spine 2 or 3 Views (08/06/2019 12:05 AM PST) + + | Specimen | [...]
--- OUTSIDE RECORDS SUMMARY | ~2020-04-03 | XMS | Encounter Summary ---
Demographics + + + | Address | [address] | | | [place] [address] | + + + | Home Phone [...] Team Providers + +------+ + | Care Movement Therapist Name | Role | Phone | + [...] + + | 10/23/ | Telephone | [facility] | Girish Cleveland | Surgery Appointment | | 2019 | | [address] | MD Carissa [address] | (Call patient, he | | | | [address] | [address] [place] | has questions. ) | | | | [address] | [place] [address] | | | | | [address] | [phone] | | | | | [phone] | | | +--------+ + + + [...] Miscellaneous Notes Telephone Encounter - Deya Joyce, Customer Relations Specialist - 10/25/2019 10:37 AM PSTSursalvadorjosr rodriguez dafne on 11/15/2019 has been cancelled as well as any preop and postop appointments. Elec tronically signed by Deya Joyce Customer Relations Specialist at 10/25/2019 10:38 AM PSTTelephone E car [...]
--- OUTSIDE RECORDS SUMMARY | ~2020-04-03 | XMS | Encounter Summary ---
Demographics + + + | Address | [address] | | | [place] [address] | + + + | Home Phone | | + + + | Preferred Language | Unknown | + + + | Marital Status | Legally | + + + | Jainism Affiliation | 1013 | + + + | Race | Unknown | + + + | Ethnic Group | Unknown | + + + Author + + + | Author | [facility] | | | and [place] | + + + | Organization | [facility] | | [...] Team Providers + +------+ + | Care Child And Family Counselor Name | Role | Phone | + +------+ + | Tate Hoff | PCP | | + +------+ + Reason for Visit + +--------+ + | Reason | Onset | Comments | | | Date | | + +--------+ + | Cancel Surgery | 02/24/ | | | | 2020 | | + +--------+ + Encounter Details +--------+ + + + + | Date | Type | Department | Care Team | Description | +--------+ + + + + | 02/24/ | Telephone | [facility] | Girish Cleveland | Cancel Surgery | | 2019 | | [address] | MD Carissa [address] | | | | | [address] | [address] [place] | | | | | [place], [place] | [place] [address] | | | | | [address] | [phone] | | | | | [phone] | | | +--------+ + + + [...] Telephone Encounter - Kristin Shelton CMA - 03/04/2020 8:54 AM PDTPatient was in the ED agai n last night for health issues. Patient understands that Dr Emmanuel [place] will be leaving [facility] in March. He will focus on his health and contact our office to establish with a new provid er when he is ready to proceed with surgery. Electronically signed by Kristin Shelton CMA at 8:55 AM PDTTelephone Encounter - Kristin Shelton CMA - 02/25/2020 9:26 AM PDTTae t's spouse called today to cancel the surgery that was scheduled for this afternoon. patient is having a severe pancreatitis attack. Patient will call to reschedule once he is feeling better. OR updated. Post Op appointments cancelled. Electronically signed by Kristin Shelton CMA at 9:31 AM PDTdocumented in this encounter Plan of [...]
--- OUTSIDE RECORDS SUMMARY | ~2020-04-03 | XMS | Encounter Summary ---
Demographics + + + | Address | [address] | | | [place] [address] | + + + | Home Phone [...] + + + | Author | [facility] | | | and [place] | + + + | Organization | [facility] | | [...] Team Providers + +------+ + | Care Marketing Editor Name | Role | Phone | + +------+ + | Tate Hoff | PCP | | + +------+ + Reason for Visit +--------+--------+ + | Reason | Onset | Comments | | | Date | | +--------+--------+ + | Other | 09/11/ | | | | 2020 | | +--------+--------+ + Encounter Details +--------+ + + + + | Date | Type | Department | Care Team | Description | +--------+ + + + + | 09/11/ | Telephone | [facility] [place] | [facility] | Other | | 2019 | | [address] | J, [address] | | | | | [address] | [address] [place] | | | | | [place], [place] | [place] [address] | | | | | [address] | [phone] | | | | | [phone] | | | +--------+ + + + [...] this encounter Miscellaneous Notes Telephone Encounter - Sandie Stanley Cert MA - 09/11/2019 11:51 AM PSTI called edwige to con firm if he is still smoking/using nicotine. He states he is no longer using any nicotine pr oducts and is only vaping flavor. Electronically signed by Rosalio Lau MA at 020 11:56 AM PSTdocumented in this encounter Plan of Treatment Not on filedocumented as of this encounter Visit Diagnoses Not on filedocumented in this encounter"
--- OUTSIDE RECORDS SUMMARY | ~2020-04-03 | XMS | Encounter Summary ---
Demographics + + + | Address | [address] | | | [place] [address] | + + + | Home Phone | | + + + | Preferred Language | Unknown | + + + | Marital Status | Legally | + + + | Mormonism Affiliation | 1013 | + + + [...] Team Providers + +------+ + | Care Assistant Infant Toddler Teacher Name | Role | Phone | + +------+ + | Tate Hoff | PCP | | + +------+ + Reason for Visit + + + | Reason | Comments | + + + | Pain Management | preop and DC MEDD (DOS BOOKKEEPING TEACHER) | + + + Encounter Details +--------+ + + + + | Date | Type | Department | Care Team | Description | +--------+ + + + + | 02/24/ | Documentati | [facility] | Girish Cleveland | Pain Management | | 2020 | on | [address] Elissa Ferrer MD [address] | (preop and DC MEDD | | | | [address] | [address] [place] | (DOS BOOKKEEPING TEACHER)) | | | | [place] | [place] [address] | | | | | [address] | [phone] | | | | | [phone] | | | +--------+ + + + [...] documented as of this encounter Progress Ana Luara Bah RN - 02/25/2020 8:20 AM PDTSurgery cancelled. Closing this encounter.Electr onically signed by Ana Laura Angel RN at 02/25/2020 1:23 PM PDTAna Laura Angel RN - 02/25/2020 8:20 AM PDTPDMP check r/t 02/25/20 Anterior Cervical Discectomy Fusion at C3-C4, C6-C7 by Dr. Cleveland PREMICHELLE MEDD=0 The following information was obtained from [email or web address]/myAccess/saw/select .do on 02/25/20. No results from [place] 12 month BOOKKEEPING TEACHER query Results from [facility] 12 month BOOKKEEPING TEACHER query Last filled 10/25/19 Percocet #20 documented [...]
--- OUTSIDE RECORDS SUMMARY | ~2020-04-03 | XMS | Encounter Summary ---
Demographics + + + | Address | [address] | | | [place] [address] | + + + | Home Phone | | + + + | Preferred Language | Unknown | + + + | Marital Status | Legally | + + + | Confucianist Affiliation | 1013 | + + + | Race | Unknown | + + + | Ethnic Group | Unknown | + + + Author + + + | Author | [facility] | | | and [place] | + + + | Organization | [facility] | | [...] Team Providers + +------+ + | Care Front End Architect Name | Role | Phone | + [...] | | | degeneration | [place], | [place], | | | | | , | [place] [address] | [place] [address] | | | | | unspecified | Phone: | Phone: | | | | | cervical | [phone] | [phone] | | | | | region | Fax: | Fax: | | | | | | [phone] | [phone] | + +--------+ + + + + [...] | stenosis (Primary | | | | [place], [place] | [place] [address] | Dx); Cervical | | | | [address] | [phone] | myelopathy (HCC) | | | | [phone] | | | +--------+---------+ + + + [...] schedule a follow up because you need [facility] physician clearance prior to surgery. You [...] Class on YouTube Preparing for Neck Surgery (Maltese) [email or web address] Here are some resources that may be helpful for managing postoperative pain: Persistent Pain Toolkit for Patients and Families: Includes education on pain in general (multiple languages) and education on pain after inju ry or surgery. Relaxation videos practice techniques to quiet pain. https://[place].cascade.org/our-services/p/huormcxeia-yznxglqlfx-qqxd/bpdcnlgvbu-jkhe-tqs lkit/ksfnyix-jka-ovorodqk-toolkit/yjwwed-akke-dlmbgexfs/ Surgical Pain Handout: https://www.fauzia.sc.gov/Portals/1/Documents/9220/825843-NpilvlnEiephxjzppbr-NtkbqlbeIqsa.pdf If you have any questions or concerns, please call the neurosurgery clinic o r send us a KODA Chart message. documented in this encounter Progress Notes Girish Cleveland MD - 08/29/2019 2:15 PM PST Girish Cleveland MD [address] [place] [address], [address] [place] [address] FAX: [phone] NEUROSURGERY HISTORY AND PHYSICAL EXAMINATION CHIEF COMPLAINT: [...] DISC ARTHROPLASTY Anterior 09/13/2006 Dr. Crow @ [facility] C4-C5 and C5-C6 anterior cervical discectomy and fusion with anterior farida te from C4-C6. CHOLECYSTECTOMY, LAPAROSCOPIC 05/12/2009 Dr. Castillo@[facility]: Cholecystectomy, lap with intraoperative cholangiograms EGD AND COLONOSCOPY 03/15/2014 Dr. Cerna, moderate hiatal hernia, patchy antral and body gastritis GASTRIC FUNDOPLICATION HEMORRHOID SURGERY 08/22/2005 HIATAL HERNIA REPAIR 08/22/2004 RECTAL SURGERY 01/20/2014 Dr. Faria; INCISION OF RECTAL ABSCESS TONSILLECTOMY AND ADENOIDECTOMY 08/22/1969 UPPER GASTROINTESTINAL ENDOSCOPY 10/30/2003 Dr. Castillo @[facility] POSTOPERATIVE DIAGNOSIS: HIATAL HERNIA AND DISTAL ESOPHAGITIS CURRENT MEDICATIONS: Current Outpatient Medications Medication Sig Dispense Refill Ucsrzat-Oardsn-Bajwurjo (PANCRELIPASE 43713 PO) Take 1 capsule by mouth. nosehef-tdwwxy-zqvnadvp (ZENPEP) 84,000-20,000-63,000 units per capsule Take 1 [...] the lungs 2 (two) caro es daily. whfuxe-gufwcvtx-rwdrtfo (PANCREAZE 21) 21,000-54,700-83,900 units per capsule Take [...] today. His smoking use included cigarettes. He dacosta s a 20.00 pack-year smoking history. He [...] has no apparent deficits with short or residential memory. CRANIAL NERVES: II: Acuity is intact. [...] 5 Interossei 5 5 APB 5 5 Natural Resources Instructor Strength 5 5 * Discomfort in the [...] also needs to follow up with his garment parts cutter machine for surgical clearance. I, Girish Cleveland MD, [...]
--- OUTSIDE RECORDS SUMMARY | ~2020-04-03 | XMS | Encounter Summary ---
Demographics + + + | Address | [address] | | | [place] [address] | + + + | Home Phone | | + + + | Preferred Language | Unknown | + + + | Marital Status | Legally | + + + | Yazdanism Affiliation | 1013 | + + + [...] Team Providers + +------+ + | Care Supervisor Show Operations Name | Role | Phone | + [...] [address] [place] | | | | | [address] | [place] [address] | | | | | [phone] | [phone] | | | | | | | [...] [] Asymptomatic - testing requested by authorized [facility] personnel, [facility] Infection Prevention Nurse or Caregiver Health [] [...] + + | Performed at: 01 - [facility] [place] [address], [place], [place] | REFERENCE LAB | | [phone] Reading Tutor: Dionicio Gibbs MD, Phone: [phone] | [facility] | + + + + + + + + | Performing | Address | City/State/Zipcode | Phone Number | | Organization | | | | + + + + + | REFERENCE LAB | [address] | [place], [place] | [phone] | | [facility] | Bhargav Quintanilla | [address] | | + + + + + [...]
--- OUTSIDE RECORDS SUMMARY | ~2020-04-03 | XMS | Encounter Summary ---
Demographics + + + | Address | [address] | | | [place] [address] | + + + | Home Phone | | + + + | Preferred Language | Unknown | + + + | Marital Status | Legally | + + + | Religion Affiliation | 1013 | + + + [...] Team Providers + +------+ + | Care Cloud Software Engineer Name | Role | Phone [...] [address] [place] | | | | | [place], [place] | [place] [address] | | | | | [address] | [phone] | | | | | [phone] | | | +--------+ + + + [...] him back. elephone Encounter - Deya Joyce, Machine Stripper Cutter - 10/23/2019 9:35 AM PSTCalled patient to n otify him that we have an opening for the OR schedule tomorrow. Verified with patient and he has not started taking medication. He will call his transportation to verify they can bring him tomorrow. 10:1 9 AM PSTTelephone Encounter - Deya Joyce Machine Stripper Cutter - 10/22/2019 12:16 PM PSTRe turned Srini's [...] rescheduled to. Apparently they showed up at [facility] this morning and were turned [...] his understanding. Srini can be reached at [phone]. documented in this encounter Plan of Treatment [...]
--- OUTSIDE RECORDS SUMMARY | ~2020-04-03 | XMS | Encounter Summary ---
Demographics + + + | Address | [address] | | | [place] [address] | + + + | Home Phone [...] Team Providers + +------+ + | Care Managed Care Nurse Name | Role | Phone | + [...] | Dx); Foraminal | | | | [place], [place] | [place] [address] | stenosis of cervical | | | | [address] | [phone] | region; Cervical | | | | [phone] | | myelopathy (HCC) | +--------+---------+ + [...] include attending Spine Class or viewing the X2IMPACT version of Spine Class on [employer] Preparing for Neck Surgery (Sami) [email or web address] Here are some resources that may be helpful for managing postoperative pain: Persistent Pain Toolkit for Patients and Families: Includes education on pain in general (multiple languages) and education on pain after inju ry or surgery. Relaxation videos practice techniques to quiet pain. https://[place].org/our-services/p/ydeatwbhhm-okxawpfchu-jchw/eixtuvhdpg-ivzj-aec lkit/hsxxjhu-dey-izdowxom-toolkit/nfarqs-wxwz-vpnyjhgic/ Surgical Pain Handout: https://www.fauzia.sc.gov/Portals/1/Documents/9220/218317-QafhhjfYvrxrtzdnsxr-UquamfzuNruk.pdf If you have any questions or concerns, [...] 2:30 PM PST Jett Corado PA-C [address] [facility], [address] [place] [address] FAX: [phone] NEUROSURGERY HISTORY AND PHYSICAL EXAMINATION CHIEF COMPLAINT: [...] DISC ARTHROPLASTY Anterior 09/13/2006 Dr. Crow @ [facility] C4-C5 and C5-C6 anterior cervical discectomy and fusion with anterior farida te from C4-C6. CERVICAL FUSION 2009 C4-6 CHOLECYSTECTOMY, LAPAROSCOPIC 05/12/2009 Dr. Castillo@[facility]: Cholecystectomy, lap with intraoperative cholangiograms EGD AND COLONOSCOPY 03/15/2014 Dr. Cerna, moderate hiatal hernia, patchy antral and body gastritis GASTRIC FUNDOPLICATION HEMORRHOID SURGERY 08/22/2005 HIATAL HERNIA REPAIR 08/22/2004 RECTAL SURGERY 01/20/2014 Dr. Faria; INCISION OF RECTAL ABSCESS TONSILLECTOMY AND ADENOIDECTOMY 08/22/1969 UPPER GASTROINTESTINAL ENDOSCOPY 10/30/2003 Dr. Castillo @[facility] POSTOPERATIVE DIAGNOSIS: HIATAL HERNIA AND DISTAL ESOPHAGITIS CURRENT MEDICATIONS: Current Outpatient Medications Medication Sig Dispense Refill rrmpfnf-pwgjvt-oxfmgnrv (ZENPEP) 84,000-20,000-63,000 units per capsule Take 1 [...] BY MOUTH ONCE DAILY. NOTICE STRENGTH CHAGNE Qubrit. Devices (QUAD CANE) MISC Cane wood 8 [...] has no apparent deficits with short or [facility] memory. CRANIAL NERVES: II: Acuity is intact. [...] 5 Interossei 5 5 APB 5 5 Tobacco Grower Strength 5 5 * Discomfort in the [...]
--- OUTSIDE RECORDS SUMMARY | ~2020-04-03 | XMS | Encounter Summary ---
Demographics + + + | Address | [address] | | | [place] [address] | + + + | Home Phone | | + + + | Preferred Language | Unknown | + + + | Marital Status | Legally | + + + | Gnosticist Affiliation | 1013 | + + + | Race | Unknown | + + + | Ethnic Group | Unknown | + + + Author + + + | Author | [facility] | | | and [place] | + + + | Organization | [facility] | | | and [...] Team Providers + +------+ + | Care Dragger Name | Role | Phone | + [...] + + | 01/31/ | Office | [facility] | Girish Cleveland | Cervical spinal | | 2019 | Visit | NEUROSURGERY [address] | JMD [address] | stenosis (Primary | | | | [address] | [address] [place] | Dx); Adjacent | | | | [place] | [place] [address] | segment disease with | | | | [address] | [phone] | spinal stenosis | | | | [phone] | | | +--------+---------+ + + + [...] Please complete as indicated on handout and [facility] quarantine guidelines. Surgery may be cancelled [...] include attending Spine Class or viewing the SmartOn Learning version of Spine Class on [employer] ([place] Natong) Preparing for Neck Surgery (Korean) https://www.[employer].U.S. Healthworks/watch?[email or web address] Here are some resources that may be helpful for managing postoperative pain: Persistent Pain Toolkit for Patients and Families: Includes education on pain in general (multiple languages) and education on pain after inju ry or surgery. Relaxation videos practice techniques to quiet pain. https://[place].[facility]ans.[facility]/our-services/p/gssbfxuqsy-xqumorxhdv-zryv/uenccqcdyd-xbke-dhq lkit/paugyvg-bwb-flcinujl-toolkit/dzhinx-ndqn-cdtodhese/ Surgical Pain Handout: https://www.fauzia.az.gov/Portals/1/Documents/9220/259761-BigynkuGbdgmleaonxa-QxdywuebUupl.pdf If you have any questions or concerns, [...] 02/01/2020 8:30 AM PDT Girish Cleveland MD [address] [place] [address], [address] [place], [place] [address] FAX: [phone] NEUROSURGERY HISTORY AND PHYSICAL EXAMINATION CHIEF COMPLAINT: Chief Complaint Patient presents with Pre-op Exam C3-C4, C6-C7 ACDF HISTORY OF PRESENT ILLNESS: Srini Johnson is a 54 y.o. male that presents [...] DISC ARTHROPLASTY Anterior 09/13/2006 Dr. Crow @ [facility] C4-C5 and C5-C6 anterior cervical discectomy and fusion with anterior farida te from C4-C6. CERVICAL FUSION 2009 C4-6 CHOLECYSTECTOMY, LAPAROSCOPIC 05/12/2009 Dr. Castillo@[facility]: Cholecystectomy, lap with intraoperative cholangiograms EGD AND COLONOSCOPY 03/15/2014 Dr. Cerna, moderate hiatal hernia, patchy antral and body gastritis GASTRIC FUNDOPLICATION HEMORRHOID SURGERY 08/22/2005 HIATAL HERNIA REPAIR 08/22/2004 RECTAL SURGERY 01/20/2014 Dr. Faria; INCISION OF RECTAL ABSCESS TONSILLECTOMY AND ADENOIDECTOMY 08/22/1969 UPPER GASTROINTESTINAL ENDOSCOPY 10/30/2003 Dr. Castillo @[facility] POSTOPERATIVE DIAGNOSIS: HIATAL HERNIA AND DISTAL ESOPHAGITIS CURRENT MEDICATIONS: Current Outpatient Medications Medication Sig Dispense Refill nojusfo-iycttl-okodkvkh (ZENPEP) 84,000-20,000-63,000 units per capsule Take 1 [...] BY MOUTH ONCE DAILY. NOTICE STRENGTH CHAGNE [employer]. Devices (QUAD CANE) Homeschool SnowboardingC Cane wood 8 ball handle black, requires [...] has no apparent deficits with short or jail memory. CRANIAL NERVES: II: Acuity is intact. [...] 5 Interossei 5 5 APB 5 5 Production Analyst Strength 5 5 Hip Flexion 5 5 [...]
--- OUTSIDE RECORDS SUMMARY | ~2020-04-03 | XMS | Encounter Summary ---
Demographics + + + | Address | [address] | | | [place] [address] | + + + | Home Phone | | + + + | Preferred Language | Unknown | + + + | Marital Status | Legally | + + + | Hoahaoism Affiliation | 1013 | + + + [...] Team Providers + +------+ + | Care Electronic Commerce Specialist Name | Role | Phone | + [...] | 10/10/ | Telephone | [facility] [place] | Girish Cleveland | Patient Education | | 2019 | | [address] | MD Carissa [address] | (spine class) | | | | [address] | [address] [place] | | | | | [place], [place] | [place] [address] | | | | | [address] | [phone] | | | | | [phone] | | | +--------+ + + + [...]
--- OUTSIDE RECORDS SUMMARY | ~2020-04-03 | XMS | Encounter Summary ---
Demographics + + + | Address | [address] | | | [place] [address] | + + + | Home Phone | | + + + | Preferred Language | Unknown | + + + | Marital Status | Legally | + + + | Baptism Affiliation | 1013 | + + + [...] Team Providers + +------+ + | Care Special Education Aide Name | Role | Phone | + [...] | | | | CLINIC [address] | [address] [place] | Dx); Chronic | | | | [place], [place] | [place] [address] | obstructive | | | | [address] | [phone] | pulmonary disease, | | | | [phone] | | unspecified COPD | | | [...] [address] | [place] | [phone] | | [facility] | | [address] | | | - LABORATORY | | [...] 100 | 60 - 106 mg/dL | [facility] | | | | | | [facility] | | | | | | [facility]ICAL | | | | | | CENTER - | | | | | | LABORATORY | | + + + + + + | BUN | 15 | 9 - 23 mg/dL | [facility] | | | | | | [facility] | | | | | | MEDICAL | | | | | | CENTER - | | | | | | LABORATORY | | + + + + + + | Creatinine | 0.82 | 0.70 - 1.30 | [facility] | | | | | mg/dL | [facility] | | | | | | MEDICAL | | | | | | CENTER - | | | | | | LABORATORY | | + + + + + + | eGFR, | >60Comment: GLOMERULAR | >=60 | [facility] | | | non- | FILTRATION | mL/min/1.73m2 | [facility] | | | Belarusian | RATE,ESTIMATED | | MEDICAL | | | | mL/min/1.67l6Urhr than | | CENTER - | | [...] | | ine Ratio | | | DUSTY | | | | | [...] [address] | [place] | [phone] | | [facility] | | [address] | | | - LABORATORY | | [...] | | | | aureus,Methicillin | | [facility] | | | | resistant (MRSA)Comment: | [...] + + | [address] | [address] | [place] | [phone] | | [facility] | | [address] | | | - LABORATORY | | | | + + + + + [facility] Lab Referral (10/10/2019 1:42 PM PST) + + + + + + | Component | Value | Ref Range | Performed | Pathologist | | | | | At | Signature | + + + + + + | Miscellaneo | COMMENTComment: Test | | REFERENCE | | | us Lab Test | Ordered: [id number] Nicotine | | LAB [facility] | | | | Metabolite, | | - [facility] | | | | UrineCotinine | | | | | | | | | | | | Positive [A ] ng/mL | | | | | | 01 Reference | | | | | | Range: Rlmekp=697 | | | | | | | [...] at | | | | | | [email or web address], | | | | | | or naratozeyad free | | | | | | [phone]. | | | | + + + + + + + + | Specimen | + + | Blood | + + + + + | Narrative | Performed At | + + + | Performed At: 01 [facility] [address] [facility], [place] | REFERENCE LAB | | [id number] Norm Hobbs PhD Ph:[phone] Performed At: 02 [facility] | [facility] | | Tae [address] [place] [phone] Keesha | | | Daily Koehler MD Ph:[phone] | | + + + + + + + + | Performing | Address | City/State/Zipcode | Phone Number | | Organization | | | | + + + + + | REFERENCE LAB | [address] | [place], [place] | [phone] | | [facility] | [facility] | [address] | | + + + + + [...]
--- OUTSIDE RECORDS SUMMARY | ~2020-04-03 | XMS | Encounter Summary ---
Demographics + + + | Address | [address] | | | [place] [address] | + + + | Home Phone | | + + + | Preferred Language | Unknown | + + + | Marital Status | Legally | + + + | Mu-Ism Affiliation | 1013 | + + + | Race | Unknown | + + + | Ethnic Group | Unknown | + + + Author + + + | Author | [facility] | | | and [place] | + + + | Organization | [facility] | | [...] Team Providers + +------+ + | Care Dispatch Manager Name | Role | Phone | [...] [place], | | | | | | [place] [address] | | | | | | [phone] | | | +--------+ + + + [...] the dischar ge process. He will use [employer] transportation. He has not scheduled his ride yet as he is wa iting for a surgery time. I told him he would be contacted by the neurosurgery department f or this information. He did not have any questions for me at this time. DISPO: Home with Cristina, Transportation via [employer] Electronically signed by: Ashely Sanchez RN 02/15/2020 [...]
[~2020-04-03 09:07] MED LIST changes: +PRILOSEC OTC20 MG PO
--- OUTSIDE RECORDS SUMMARY | 2020-04-03 09:10 | XMS ---
PreManage Notification: VINAY FERNANDEZ Security C Developer Events No recent Security Events currently on file CRITERIA MET - [facility] - Has Care Guidelines - History of Sepsis Dx CARE PROVIDERS CONNER LUU Dentist: Selling Underwriter 05/16/2019-Current PHONE: [phone] CEE COTTO [facility] Current PHONE: [phone] JOSIAH PEREZ Internal Medicine: Pulmonary Disease 06/26/2018-Current PHONE: Unknown Guidelines Source: [facility] - [place] Guidelines Date: 12/13/2019 Care Coordination: Member is currently engaged in [employer] services. If [facility] services are needed contact [facility] at: Stephanie [phone] [place] [phone] [facility] [phone] Care History Medical/Surgical 09/13/2019 [facility] - PATIENT HAS ANOTHER ER FOLLOW UP APT- WITH PCP DR LUU 09/14/2019. 09/11/2019 [facility] - PATIENT PRIMARY CARE PHYSICIAN- DR LUU[facility] - PATIENT FOLLOWED UP WITH PCP DR LUU 09/11/2019 @ 9:20AM. E.DEmmanuel VISIT COUNT (12 MO.) [address] [facility] [address] [facility] TOTAL 7 NOTE: Visits indicate total known visits. ED/UCC VISIT TRACKING (12 MO.) 04/03/2020 09:[address] [facility] [address] [facility] [place] TYPE: Emergency COMPLAINT: - CHEST PAIN, ABD PAIN 03/03/2020 10:54 [facility] [place] TYPE: Emergency COMPLAINT: - CHEST PAIN, VOMITING DIAGNOSES: - Nicotine dependence, unspecified, uncomplicated - Dyskinesia of esophagus - Precordial pain - Other halfway (current) 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 - Allergy status to penicillin - Allergy status to other drugs, medicaments and biological sub 12/12/2019 12:42 [facility] [place] TYPE: Emergency COMPLAINT: - ABDOMINAL PAIN DIAGNOSES: - Unspecified abdominal pain - Allergy status to penicillin - Allergy status to other drugs, medicaments and biological sub - Cyclical vomiting syndrome unrelated to migraine - Epigastric pain - Other chronic pain - Other halfway (current) 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 09/12/2019 12:15 [facility] [place] TYPE: Emergency COMPLAINT: - ABD PAIN DIAGNOSES: - Nausea with vomiting, unspecified - Other halfway (current) 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 - Allergy status to [...] COMPLAINT: - ABD PAIN DIAGNOSES: - Other oil heaterman (current) 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 - Allergy status to penicillin - Unspecified abdominal pain - Personal history of nicotine dependence - Allergy status to analgesic agent status - Gastritis, unspecified, without bleeding INPATIENT VISIT TRACKING (12 MO.) No inpatient visits to display in this time frame [email or web address]
[2020-04-03] MEDS ORDERED: ONDANSETRON ODT4 MG SL (09:40)
--- NOTE | 2020-04-03 15:42 | EKG ---
[facility] [address] [facility] [place] [address] Signed Normal sinus rhythm Right atrial enlargement Minimal voltage criteria for LVH, may be normal variant Borderline ECG When compared with ECG of 03-MAR-2020 11:04, premature atrial complexes are no longer present QT has lengthened Confirmed by GILL LUKE MD ([id number]) on 04/03/2020 3:41:56 PM Electronically Signed By: GILL LUKE MD 04/03/20 1542 PATIENT NAME: VINAY FERNANDEZ Electrocardiogram DATE OF : 63 PHYSICIAN: GILL LUKE MD REPORT #: [id number] REPORT IS CONFIDENTIAL AND NOT TO BE RELEASED WITHOUT AUTHORIZATION
== END 2020-04-03 11:15 | disposition home or self-care (01) ==
LOC: ED 09:07
DX: R11.15 Cyclical vomiting syndrome unrelated to migraine (principal); F17.200 Nicotine dependence, unspecified, uncomplicated; Z88.8 Allergy status to other drugs, medicaments and biological substances; Z88.0 Allergy status to penicillin; Z79.899 Other long term (current) 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
CPT/HCPCS: 93005; 93010; 96374; 96375; 99284-25; J1200; J1790; J2060

== ENCOUNTER 2020-09-23 06:09 | Emergency (ER) | payer MEDICARE, OTHER ==
[~2020-09-23] VITALS: Ht 170.2 cm; Wt 75.9 kg
[~2020-09-23 06:09] MED LIST changes: +ONDANSETRON ODT4 MG SL
--- OUTSIDE RECORDS SUMMARY | 2020-09-23 06:12 | XMS ---
PreManage Notification: VINAY FERNANDEZ Security Nurse Sane Events No recent Security Events currently on file CRITERIA MET - [facility] - Has Care Guidelines - History of Sepsis Dx CARE PROVIDERS CONNER LUU Dentist: Communications Department Head 05/16/2019-Current PHONE: [phone] CEE COTTO [facility] Current PHONE: [phone] JOSIAH PEREZ Internal Medicine: Pulmonary Disease 06/26/2018-Current PHONE: Unknown Guidelines Source: Decision Pace - [place] Guidelines Date: 12/13/2019 Care Coordination: Member is currently engaged in Decision Pace services. If Decision Pace services are needed contact [facility] at: Stephanie [phone] [place] [phone] [facility] [phone] Care History Medical/Surgical 04/03/2020 [facility] - PATIENT HAS BEEN FOLLOWING UP WITH PCP OFFICE-DR LUU- - PATIENT DOES NOT HAVE NO SHOWS AND IS SHOWING TO APTS NEEDED - LAST APT WITH PCP WAS ON 04/01/2020, NEXT APT WILL BE ON 07/02/20. - [facility] CONTACTED PCP OFFICE AND THEY WILL CONTACT PATIENT FOR A FOLLOW UP APT DUE TO RECENT ED VISIT., 09/13/2019 [facility] - PATIENT HAS ANOTHER ER FOLLOW UP APT- WITH PCP DR LUU 09/14/2019. 09/11/2019 [facility] - PATIENT PRIMARY CARE PHYSICIAN- DR LUU-[facility] - PATIENT FOLLOWED UP WITH PCP DR LUU 09/11/2019 @ 9:20AM. E.D. VISIT COUNT (12 MO.) 5 [facility] TOTAL 5 NOTE: Visits indicate total known visits. ED/UCC VISIT TRACKING (12 MO.) 09/23/2020 06:10 [facility] [place] TYPE: Emergency COMPLAINT: - ABD PAIN, VOMITING, SWEATS, ACHES/PAINS 06/05/2020 11:03 [facility] [place] TYPE: Emergency COMPLAINT: - UNRESPONSIVE DIAGNOSES: - Vomiting, unspecified - Altered mental status, unspecified - Syncope and collapse - Unspecified abdominal pain - Allergy status to other drugs, medicaments and biological substances - Other intermediate teacher (current) 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 - Nicotine dependence, unspecified, uncomplicated - Cannabis use, unspecified with intoxication, uncomplicated - Allergy status to penicillin 04/03/2020 09:07 [facility] [place] TYPE: Emergency COMPLAINT: - CHEST PAIN, ABD PAIN DIAGNOSES: - Allergy status to penicillin - Other care home (current) 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 - Nicotine dependence, unspecified, uncomplicated - Chest pain, unspecified - Cyclical vomiting syndrome unrelated to migraine - Allergy status to other drugs, medicaments and biological substances 03/03/2020 10:54 [facility] [place] TYPE: Emergency COMPLAINT: - CHEST PAIN, VOMITING DIAGNOSES: - Nicotine dependence, unspecified, uncomplicated - Dyskinesia of esophagus - Precordial pain - Other care home (current) 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 - Allergy status to penicillin - Allergy status to other drugs, medicaments and biological substances 12/12/2019 12:42 [facility] [place] TYPE: Emergency COMPLAINT: - ABDOMINAL PAIN DIAGNOSES: - Unspecified abdominal pain - Allergy status to penicillin - Allergy status to other drugs, medicaments and biological substances - Cyclical vomiting syndrome unrelated to migraine - Epigastric pain - Other chronic pain - Other care home (current) 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 INPATIENT VISIT TRACKING (12 MO.) No inpatient visits to display in this time frame [email or web address]
[2020-09-23] MEDS ORDERED: ATORVASTATIN CA20 MG PO (06:54)
[2020-09-23] MEDS ORDERED: NAPROXEN500 MG PO (06:55)
[2020-09-23] MEDS ORDERED: VISTARIL50 MG PO (11:29)
[2020-09-23] MEDS ORDERED: OMEPRAZOLE20 MG PO (11:29)
[2020-09-23] MEDS ORDERED: ZOFRAN4 MG PO (11:29)
== END 2020-09-23 11:59 | disposition home or self-care (01) ==
LOC: ED 06:09
DX: K29.20 Alcoholic gastritis without bleeding (principal); F17.200 Nicotine dependence, unspecified, uncomplicated; Z88.8 Allergy status to other drugs, medicaments and biological substances; Z88.0 Allergy status to penicillin; Z79.899 Other long term (current) 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
CPT/HCPCS: 74177; 80053; 83690; 85025; 99284-25; J1200; J1790; J1885; Q9967

== ENCOUNTER 2020-09-24 06:45 | Emergency (ER) | payer MEDICARE, OTHER ==
[~2020-09-24] VITALS: Ht 170.2 cm; Wt 75.9 kg
[~2020-09-24 06:45] MED LIST changes: +NAPROXEN500 MG PO; +OMEPRAZOLE20 MG PO; +VISTARIL50 MG PO
--- OUTSIDE RECORDS SUMMARY | 2020-09-24 06:48 | XMS ---
PreManage Notification: VINAY FERNANDEZ Security Galvanizing Pot Runner Events No recent Security Events currently on file CRITERIA MET - [facility] - Has Care Guidelines - History of Sepsis Dx - [facility] - 2 Visits in 30 Days CARE PROVIDERS CONNER LUU Dentist: Geothermal Installer 05/16/2019-Current PHONE: [phone] CEE COTTO JUL[facility] Current PHONE: [phone] JOSIAH PEREZ Internal Medicine: Pulmonary Disease 06/26/2018-Current PHONE: Unknown Guidelines Source: [facility] [place] Guidelines Date: 12/13/2019 Care Coordination: Member is currently engaged in [employer] services. If [employer] services are needed contact [employer] at: Stephanie [phone] [place] [phone] Crisis Line [phone] Care History Medical/Surgical 04/03/2020 [facility] - PATIENT HAS BEEN FOLLOWING UP WITH PCP OFFICE-DR LUU- - PATIENT DOES NOT HAVE NO SHOWS AND IS SHOWING TO APTS NEEDED - LAST APT WITH PCP WAS ON 04/01/2020, NEXT APT WILL BE ON 07/02/20. - [facility] CONTACTED PCP OFFICE AND THEY WILL CONTACT PATIENT FOR A FOLLOW UP APT DUE TO RECENT ED VISIT., 09/13/2019 [facility] - PATIENT HAS ANOTHER ER FOLLOW UP APT- WITH PCP DR LUU 09/14/2019. 09/11/2019 [facility] - PATIENT PRIMARY CARE PHYSICIAN- DR LUU-[facility] - PATIENT FOLLOWED UP WITH PCP DR LUU 09/11/2019 @ 9:20AM. E.D. VISIT COUNT (12 MO.) 6 [facility]. TOTAL 6 NOTE: Visits indicate total known visits. ED/UCC VISIT TRACKING (12 MO.) 09/24/2020 06:45 [facility] [place] TYPE: Emergency COMPLAINT: - FALL, LEFT SIDE PAIN, DIFFICULTY BREATHING 09/23/2020 06:10 [facility] [place] TYPE: Emergency COMPLAINT: - ABD PAIN, VOMITING, SWEATS, ACHES/PAINS 06/05/2020 11:03 [facility] [place] TYPE: Emergency COMPLAINT: - UNRESPONSIVE DIAGNOSES: - Vomiting, unspecified - Altered mental status, unspecified - Syncope and collapse - Unspecified abdominal pain - Allergy status to other drugs, medicaments and biological substances - Other group home (current) 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 - Nicotine dependence, unspecified, uncomplicated - Allergy status to other drugs, medicaments and biological substances - Cannabis use, unspecified with intoxication, uncomplicated - Allergy status to penicillin 04/03/2020 09:07 [facility] [place] TYPE: Emergency COMPLAINT: - CHEST PAIN, ABD PAIN DIAGNOSES: - Allergy status to penicillin - Other group home (current) 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 - Nicotine dependence, unspecified, uncomplicated - Chest pain, unspecified - Cyclical vomiting syndrome unrelated to migraine - Allergy status to other drugs, medicaments and biological substances 03/03/2020 10:54 [facility] [place] TYPE: Emergency COMPLAINT: - CHEST PAIN, VOMITING DIAGNOSES: - Nicotine dependence, unspecified, uncomplicated - Dyskinesia of esophagus - Precordial pain - Other group home (current) 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 [...] pain - Other chronic pain - Other group home (current) 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 INPATIENT VISIT TRACKING ( MO.) No inpatient visits to display in this time frame [email or web address]
--- NOTE | 2020-09-24 23:53 | EKG ---
[facility] [address] [place] [address] Signed Normal sinus rhythm Right atrial enlargement Minimal voltage criteria for LVH, may be normal variant Borderline ECG When compared with ECG of 05-JUN-2020 11:08, No significant change was found Confirmed by NICOLE KAUR MD ([id number]) on 09/24/2020 11:52:39 PM Electronically Signed By: NICOLE KAUR MD 09/24/20 2353 PATIENT NAME: VINAY FERNANDEZ JAILENE Electrocardiogram DATE OF : 63 PHYSICIAN: NICOLE KAUR MD REPORT #: [id number] REPORT IS CONFIDENTIAL AND NOT TO BE RELEASED WITHOUT AUTHORIZATION
== END 2020-09-24 09:42 | disposition home or self-care (01) ==
LOC: ED 06:45
DX: R55 Syncope and collapse (principal); S22.32XA Fracture of one rib, left side, initial encounter for closed fracture; W18.30XA Fall on same level, unspecified, initial encounter; F17.200 Nicotine dependence, unspecified, uncomplicated; Z88.8 Allergy status to other drugs, medicaments and biological substances; Z88.0 Allergy status to penicillin; Z79.899 Other long term (current) 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
CPT/HCPCS: 51701; 71045; 71101; 80053; 84484; 85025; 93005; 93010; 99284-25; J1885; J2310; J7030

== ENCOUNTER 2020-10-28 05:14 | Emergency (ER) | payer MEDICARE, OTHER ==
[~2020-10-28] VITALS: Ht 170.2 cm; Wt 75.9 kg
--- OUTSIDE RECORDS SUMMARY | 2020-10-28 05:16 | XMS ---
PreManage Notification: VINAY FERNANDEZ Security Baker Events No recent Security Events currently on file CRITERIA MET - [facility] - Has Care Guidelines - History of Sepsis Dx CARE PROVIDERS CONNER LUU Dentist: Combat Engineer 05/16/2019-Current PHONE: [phone] CEE C[facility] Current PHONE: [phone] JOSIAH PEREZ Internal Medicine: Pulmonary Disease 06/26/2018-Current PHONE: Unknown Guidelines Source: [employer] - [place] Guidelines Date: 12/13/2019 Care Coordination: Member is currently engaged in [employer] services. If [employer] services are needed contact [facility] at: Stephanie [phone] [place] [phone] [facility] [phone] Care History Medical/Surgical 04/03/2020 [facility] - PATIENT HAS BEEN FOLLOWING UP WITH PCP OFFICE-DR LUU- - PATIENT DOES NOT HAVE NO SHOWS AND IS SHOWING TO APTS NEEDED - LAST APT WITH PCP WAS ON 04/01/2020, NEXT APT WILL BE ON 07/02/20. - [facility] CONTACTED PCP OFFICE AND THEY WILL CONTACT PATIENT FOR A FOLLOW UP APT DUE TO RECENT ED VISIT., 09/13/2019 [facility] - PATIENT HAS ANOTHER ER FOLLOW UP APT- WITH PCP DR LUU 09/14/2019. 09/11/2019 [facility] - PATIENT PRIMARY CARE PHYSICIAN- DR LUU-[facility] - PATIENT FOLLOWED UP WITH PCP DR LUU 09/11/2019 @ 9:20AM. E.D. VISIT COUNT (12 MO.) 7 [facility] TOTAL 7 NOTE: Visits indicate total known visits. ED/UCC VISIT TRACKING (12 MO.) 10/28/2020 05:15 [facility] [place] TYPE: Emergency COMPLAINT: - HEAD PAIN,NAUSEA 09/24/2020 06:45 [facility] [place] TYPE: Emergency COMPLAINT: - FALL, LEFT SIDE PAIN, DIFFICULTY BREATHING DIAGNOSES: - Allergy status to penicillin - Fall on same level, unspecified, initial encounter - Allergy status to other drugs, medicaments and biological substances - Other skilled nursing (current) 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 - Fracture of one rib, left side, initial encounter for closed fracture - Pleurodynia - Syncope and collapse - Nicotine dependence, unspecified, uncomplicated 09/23/2020 06:10 [facility] [place] TYPE: Emergency COMPLAINT: - ABD PAIN, VOMITING, SWEATS, ACHES/PAINS DIAGNOSES: - Generalized abdominal pain - Allergy status to penicillin - Other oil heaterman (current) 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 - Allergy status to other drugs, medicaments and biological substances - Alcoholic gastritis without bleeding - Nicotine dependence, unspecified, uncomplicated 06/05/2020 11:03 [facility] [place] TYPE: Emergency COMPLAINT: - UNRESPONSIVE DIAGNOSES: - Vomiting, unspecified - Altered mental status, unspecified - Syncope and collapse - Unspecified abdominal pain - Allergy status to other drugs, medicaments and biological substances - Other skilled nursing (current) 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 - Nicotine dependence, unspecified, uncomplicated - Allergy status to other drugs, medicaments and biological substances - Cannabis use, unspecified with intoxication, uncomplicated - Allergy status to penicillin 04/03/2020 09:07 [facility] [place] TYPE: Emergency COMPLAINT: - CHEST PAIN, ABD PAIN DIAGNOSES: - Allergy status to penicillin - Other oil heaterman (current) 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 - Nicotine dependence, unspecified, uncomplicated - Chest pain, unspecified - Cyclical vomiting syndrome unrelated to migraine - Allergy status to other drugs, medicaments and biological substances 03/03/2020 10:54 [facility] [place] TYPE: Emergency COMPLAINT: - CHEST PAIN, VOMITING DIAGNOSES: - Nicotine dependence, unspecified, uncomplicated - Dyskinesia of esophagus - Precordial pain - Other oil heaterman (current) 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 [...] pain - Other chronic pain - Other oil heaterman (current) 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 INPATIENT VISIT TRACKING (12 MO.) No inpatient visits to display in this time frame [email or web address]
== END 2020-10-28 06:32 | disposition home or self-care (01) ==
LOC: ED 05:14
DX: I10 Essential (primary) hypertension (principal); R11.0 Nausea; F17.200 Nicotine dependence, unspecified, uncomplicated; Z88.8 Allergy status to other drugs, medicaments and biological substances; Z88.0 Allergy status to penicillin; Z79.899 Other long term (current) 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
CPT/HCPCS: 70450; 96374; 96375; 99284-25; J1200; J1885; J2405; J2765; J7030

== ENCOUNTER 2021-06-10 10:36 | Emergency (ER) | payer MEDICARE, OTHER ==
[~2021-06-10] VITALS: Ht 172.7 cm; Wt 78.2 kg
--- OUTSIDE RECORDS SUMMARY | 2021-06-10 10:44 | XMS ---
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 If [employer] services are needed contact [facility] at: Stephanie [phone] [place] [phone] [facility] [phone] Care History Medical/Surgical 04/03/2020 [facility] - PATIENT HAS BEEN FOLLOWING UP WITH PCP OFFICE-DR LUU- - PATIENT DOES NOT HAVE NO SHOWS AND IS SHOWING TO APTS NEEDED - LAST APT WITH PCP WAS ON 04/01/2020, NEXT APT WILL BE ON 07/02/20. - [facility] CONTACTED PCP OFFICE AND THEY WILL CONTACT PATIENT FOR A FOLLOW UP APT DUE TO RECENT ED VISIT., 09/13/2019 [facility] - PATIENT HAS ANOTHER ER FOLLOW UP APT- WITH PCP DR LUU 09/14/2019. 09/11/2019 [facility] - PATIENT PRIMARY CARE PHYSICIAN- DR LUU-[facility]LLA [facility] - PATIENT FOLLOWED UP WITH PCP DR LUU 09/11/2019 @ 9:20AM. E.D. VISIT COUNT (12 MO.) 4 [facility] TOTAL 4 NOTE: Visits indicate total known visits. 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
[2021-06-10] MEDS ORDERED: METOPROLOL SUCC25 MG PO (11:24)
[2021-06-10] MEDS ORDERED: LISINOPRIL10 MG PO (11:24)
[2021-06-10] MEDS ORDERED: SERTRALINE HCL50 MG PO (11:25)
[2021-06-10] MEDS ORDERED: BUSPIRONE HCL10 MG PO (11:25)
[2021-06-10] MEDS ORDERED: CYCLOBENZAPRINE10 MG PO (13:29)
[2021-06-10] MEDS ORDERED: METHOCARBAMOL750 MG PO (13:53)
--- NOTE | 2021-06-11 18:13 | EKG ---
[facility] [address] [place] [address] Signed Sinus tachycardia Right atrial enlargement Borderline ECG When compared with ECG of 24-SEP-2020 07:39, Vent. rate has increased BY 43 BPM Confirmed by GILL LUKE MD ([id number]) on 06/11/2021 6:13:47 PM Electronically Signed By: GILL LUKE MD 06/11/211812 PATIENT NAME: VINAY FERNANDEZ Electrocardiogram DATE OF : 63 PHYSICIAN: GILL LUKE MD REPORT #: [id number] REPORT IS CONFIDENTIAL AND NOT TO BE RELEASED WITHOUT AUTHORIZATION
== END 2021-06-10 14:00 | disposition home or self-care (01) ==
LOC: ED 10:36
DX: R07.89 Other chest pain (principal); F17.200 Nicotine dependence, unspecified, uncomplicated; Z88.0 Allergy status to penicillin; Z88.2 Allergy status to sulfonamides; Z88.6 Allergy status to analgesic agent; Z79.899 Other long term (current) 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
CPT/HCPCS: 71045; 80053; 84484; 85025; 85379; 93005; 93010; 96374; 96375; 96376; 99285-25; J1170; J1885

== ENCOUNTER 2021-08-04 11:02 | Inpatient (IN) | payer MEDICARE, OTHER ==
[~2021-08-04] VITALS: Ht 172.7 cm; Wt 78.2 kg
[~2021-08-04 11:02] MED LIST changes: +BUSPIRONE HCL10 MG PO; +CYCLOBENZAPRINE10 MG PO; +METHOCARBAMOL750 MG PO; +METOPROLOL SUCC25 MG PO; +SERTRALINE HCL50 MG PO
[2021-08-06] MEDS ORDERED: SULFAMETHOXAZO1 EAC1 PO (11:08)
== END 2021-08-06 13:00 | disposition home or self-care (01) | DRG 603 ==
LOC: ED 11:02 → CCU 13:39 → MS 08-05 12:15
PROVIDERS: ADMIT Student in an Organized Health Care Education/Training Program; ATTEND Student in an Organized Health Care Education/Training Program
DX: L03.211 Cellulitis of face (principal); E87.1 Hypo-osmolality and hyponatremia; E87.2 Acidosis; N17.9 Acute kidney failure, unspecified; I10 Essential (primary) hypertension; E78.5 Hyperlipidemia, unspecified; Z20.822 Contact with and (suspected) exposure to COVID-19; K21.9 Gastro-esophageal reflux disease without esophagitis; F17.210 Nicotine dependence, cigarettes, uncomplicated; F39 Unspecified mood [affective] disorder; Z88.0 Allergy status to penicillin; Z88.5 Allergy status to narcotic agent; Z88.8 Allergy status to other drugs, medicaments and biological substances; Z90.49 Acquired absence of other specified parts of digestive tract; Z98.890 Other specified postprocedural states
CPT/HCPCS: 70487; 80048; 80202; 82553; 82803; 83605; 83735; 84295; 84300; 85025; 96365; 99285-25; C9803; J0692; J1650; J3370; J7060; J7121; Q9967; U0003

== ENCOUNTER 2022-01-28 23:13 | Emergency (ER) | payer MEDICARE, OTHER ==
[~2022-01-28] VITALS: Ht 172.7 cm; Wt 78.0 kg
[~2022-01-28 23:13] MED LIST changes: +SULFAMETHOXAZO1 EAC1 PO
== END 2022-01-29 04:38 | disposition home or self-care (01) ==
LOC: ED 23:13
DX: R42 Dizziness and giddiness (principal); F19.90 Other psychoactive substance use, unspecified, uncomplicated; F17.200 Nicotine dependence, unspecified, uncomplicated; Z88.0 Allergy status to penicillin; Z88.8 Allergy status to other drugs, medicaments and biological substances; Z79.899 Other long term (current) 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
CPT/HCPCS: 36415; 70450; 80053; 81001; 85025; 96374; 99284-25; G0480; J2060

== ENCOUNTER 2022-08-10 12:28 | Emergency (ER) | payer MEDICARE, OTHER ==
[~2022-08-10] VITALS: Ht 172.7 cm; Wt 77.5 kg
[2022-08-10] MEDS ORDERED: VENTOLIN HFA18 GM INH ×2 (12:39→13:33)
[2022-08-10] MEDS ORDERED: TOPROL XL25 MG PO (13:04)
[2022-08-10] MEDS ORDERED: LISINOPRIL10 MG PO (13:04)
[2022-08-10] MEDS ORDERED: LIPITOR20 MG PO (13:04)
--- NOTE | 2022-08-10 16:54 | EKG ---
[facility] [address] [place] [address] Signed Normal sinus rhythm Minimal voltage criteria for LVH, may be normal variant ( Sokolow-Figueroa ) Borderline ECG No previous ECGs available Confirmed by Ramez Madison MD () on 08/10/2022 4:54:08 PM Electronically Signed By: RAMEZ MADISON MD 08/10/22 1654 PATIENT NAME: VINAY FERNANDEZ Electrocardiogram DATE OF : 63 PHYSICIAN: RAMEZ MADISON MD REPORT #: [id number] REPORT IS CONFIDENTIAL AND NOT TO BE RELEASED WITHOUT AUTHORIZATION
== END 2022-08-10 13:43 | disposition home or self-care (01) ==
LOC: ED 12:28
DX: J40 Bronchitis, not specified as acute or chronic (principal); F17.200 Nicotine dependence, unspecified, uncomplicated; Z59.00 Homelessness unspecified; Z88.8 Allergy status to other drugs, medicaments and biological substances; Z88.0 Allergy status to penicillin; Z79.899 Other long term (current) 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; Z20.822 Contact with and (suspected) exposure to COVID-19
CPT/HCPCS: 36415; 71045; 80053; 83735; 84484; 85025; 87502; 93005; 93010; 99285-25; U0003

== ENCOUNTER 2023-04-03 17:39 | Emergency (ER) | payer MEDICARE, OTHER | END 2023-04-03 19:54 | disposition home or self-care (01) | LOC: ED 17:39 | DX: S00.81XA Abrasion of other part of head, initial encounter (principal); S43.402A Unspecified sprain of left shoulder joint, initial encounter; M54.2 Cervicalgia; Y04.2XXA Assault by strike against or bumped into by another person, initial encounter; I10 Essential (primary) hypertension; J45.909 Unspecified asthma, uncomplicated; F17.200 Nicotine dependence, unspecified, uncomplicated; Z88.0 Allergy status to penicillin; Z88.1 Allergy status to other antibiotic agents; Z88.8 Allergy status to other drugs, medicaments and biological substances; Z79.899 Other long term (current) 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 ==